=== PATIENT | male | born 1985 | race Hispanic/Latino ===

== ENCOUNTER 2024-04-01 08:05 | Emergency (ER) | payer SELFPAY ==
--- OUTSIDE RECORDS SUMMARY | 2024-04-01 08:09 | XMS REPORT | Continuity of Care Document ---
Author Name Unknown Address [address] [facility] [address] [place] [address] [facility] Address [address] [facility]. [address] [place] [address] Care Team Providers Care Sterilization Technician Name Role Phone PCP, PATIENT DOES NOT HAVE A Primary Care Physic manisha Unavailable Anthony Chauhan Attending Clinician UnaKervin Oropeza Attending Clinician Unavailable Ayush Chauhan Attending Clinician Unavailable KARI MICHELLE Attending Clinician Unavailable Kari Michelle MD Attending Clinician [phone] Doctor Unassigned, [place] Attending Clinician U navailable Sara RODRIGUEZ Attending Clinician Unavailable Sara Park Attending Clinician [phone] Soy Donnelly Attending Clinician Unavailable Dipesh Durán Attending Clinician UnavailSerina Melara Attending Clinician Unavailable Physician, No Primary or Family Admitting Clinic manisha Unavailable KARI MICHELLE Admitting Clinician Unavailable Payers Payer Name Policy Type Policy Number Effective Date Expirati on Date Source COMMERCIAL NON-CONTRACT GENERIC [id number] 2022 00:00:00 Problems Condition Name Condition Details Condition Category Status Onset Date Resolution Date Last Treatment Date Treating Clinician Comments Source No known active problems No known active problems Disease [facility] Allergies, Adverse Reactions, Alerts Allergy Name Allergy Type Status Severity Reaction(s) Onset Date Inactive Date Treating Clinician Comments Source No Known Allergie s DA Active U 09-21 00:00: 00 [facility] No Known Allergie s DA Active U 8-29 00:00: 00 [facility] No Known Allergie s DA Active U 3- 00:00: 00 [facility] No Known Allergie s DA Active U 3 00:00: 00 [facility] No Known Allergie s DA Active U 2-04 00:00: 00 [facility] NO KNOWN ALLERGIE S Drug Class Active [facility] Social History Social Habit Start Date Stop Date Quantity Comments Source Exposure to SARS-CoV-2 (event) 2022-09-10 00:00:00 2022-09-20 20:36:00 Not sure [facility] Sex Assigned At 1985 00:00:00 1985 00:00:00 [facility] Smoking Status Start Date Stop Date Source Tobacco smoking consumption unknown [facility] Medications Ordered Medication Name Filled Medication Name Start Date Stop Date Current Medication? Ordering Clinician Indication Dosage Frequency Signature (SIG) Comments Components Source benzonatate 200 mg capsule 09-20 00:00: 00 Yes [id number] 200mg Take 1 capsule by mouth 3 (three) times daily as needed for Cough. [facility] ibuprofen 800 mg tablet 09-20 00:00: 00 Yes [id number] 800mg Take 1 tablet by mouth every 8 (eight) hours as needed for Pain (scale 4-6) or Temp > 38.5 C. [facility] albuterol 90 mcg/actuati on inhaler 2021-06 00:00: 00 Yes [id number] 2{puff} Inhale 2 Puffs every 4 (four) hours as needed for Wheezing or Shortness of Breath. [facility] naproxen (NAPROSYN) 500 mg tablet 2021-06 00:00: 00 Yes [id number] 500mg Take 1 tablet by mouth in the morning and 1 tablet in the evening. Take with meals. [facility] ondansetron 4 mg disintegrat ing tablet 2021-06 00:00: 00 Yes [id number] 4mg Take 1 tablet by mouth every 8 (eight) hours as needed for Nausea and Vomiting (N/V). [facility] benzonatate 200 mg capsule 2021-06 00:00: 00 Yes [id number] 200mg Take 1 capsule by mouth 3 (three) times daily as needed for Cough for up to 20 doses. [facility] Vital Signs Vital Name Observation Time Observation Value Comments S rhiannon Systolic blood pressure 2022-09-21 03:00:00 126 mm[Hg] [facility] Diastolic blood pressure 2022-09-21 03:00:00 85 mm[Hg] [facility] Heart rate 2022-09-21 03:00:00 70 /min [facility] Respiratory rate 2022-09-21 03:00:00 15 /min [facility] Oxygen saturation in Arterial blood by Pulse oximetry 2022-09-21 03:00:00 97 /min [facility] Body temperature 2022-09-21 01:35:00 37.22 [facility] Body height 2022-09-21 01:35:00 170.2 cm [facility] Body weight 2022-09-21 01:35:00 90.719 kg [facility] BMI 2022-09-21 01:35:00 31.32 kg/m2 [facility] Systolic blood pressure 2022-05-09 18:33:00 140 mm[Hg] [facility] Diastolic blood pressure 2022-05-09 18:33:00 99 mm[Hg] [facility] Heart rate 2022-05-09 18:33:00 70 /min [facility] Body temperature 2022-05-09 18:33:00 37 [facility] Respiratory rate 2022-05-09 18:33:00 16 /min [facility] Body height 2022-05-09 18:33:00 170.2 cm [facility] Body weight 2022-05-09 18:33:00 99.791 kg [facility] BMI 2022-05-09 18:33:00 34.46 kg/m2 [facility] Oxygen saturation in Arterial blood by Pulse oximetry 2022-05-09 18:33:00 100 /min [place] [facility] Procedures Procedure Date / Time Performed Performing Clinicia n Source EKG-12 LEAD 2022-09-21 03:13:33 Kari Michelle [facility] D-DIMER 2022-09-21 02:04:00 Kari Michelle [facility] COVID-19 (ID NOW RAPID TESTING) 2022-09-21 02:04:00 Kari Michelle [facility] LIPASE 2022-09-21 01:50:00 Kari Michelle [facility] TROPONIN I 2022-09-21 01:50:00 Kari Michelle [facility] COMP. METABOLIC PANEL (01525) 2022-09-21 01:50:00 Kari Michelle [facility] CBC WITH DIFF 2022-09-21 01:50:00 Kari Michelle [facility] CONSENT/REFUSAL FOR DIAGNOSIS AND TREATMENT 2022-09-21 01:25:35 Doctor Unassigned, [place] [facility] RAPID INFLUENZA A/B 2022-05-09 19:31:00 Sara Rodriguez [facility] COVID-19 (ID NOW RAPID TESTING) 2022-05-09 19:31:00 Sara Rodriguez [facility] CONSENT/REFUSAL FOR DIAGNOSIS AND TREATMENT 2022-05-09 18:23:53 Doctor Unassigned, [place] [facility] NOTICE OF PRIVACY PRACTICES 2022-05-09 18:22:56 Doctor Unassigned, [place] [facility] Encounters Start Date/Time End Date/Time Encounter Type Admission Type Attending [facility] Care Department Encounter ID Source 2023-10-20 18:53:00 Inpatient [facility] [id number] [facility] 2020-07-15 06:21:42 Inpatient [facility] [id number] [facility] 2020-01-30 09:46:00 Inpatient [facility] [id number] [facility] 2019-08-29 07:45:00 Inpatient [facility] [id number] [facility] 2019-08-21 13:07:00 Inpatient [facility] [id number] [facility] 2023-12-11 12:22:00 2023-12-11 13:44:00 Emergency EM Tien , Anthony [facility] [id number] [facility] 2023-07-30 16:50:00 2023-07-30 18:17:00 Emergency EM Kervin Quinn [facility] [id number] [facility] 2023-05-14 18:20:00 2023-05-14 19:39:00 Emergency EM Tien Ayush [facility] ER [id number] [facility] 2022-10-30 16:14:00 2022-10-30 17:33:00 Emergency EM Kervin Quinn [facility] [id number] [facility] 2022-09-20 20:39:00 2022-09-20 22:22:00 Emergency X KARI MICHELLE [facility] ERT [id number] [facility] 2022-09-20 20:39:00 2022-09-20 22:22:00 Emergency Kari Michelle [facility] [id number] [facility] 2022-09-20 00:00:00 2022-09-20 00:00:00 Orders Only Doctor Unassigned, [place] [facility] [id number] [facility] 2022-05-09 12:34:00 2022-05-09 14:28:00 Emergency X JENNIFER Sara [facility] ERT [id number] [facility] 2022-05-09 12:34:00 2022-05-09 14:28:00 Emergency Sara Rodriguez Aura [facility] [id number] [facility] 2021-09-21 00:03:00 2021-09-21 02:32:00 Emergency EM Andrzej Soy [facility] [id number] [facility] 2021-01-16 03:38:00 2021-01-16 04:12:00 Emergency EM Dipesh Durán [facility] [id number] [facility] 2021-01-01 21:23:00 2021-01-01 22:00:00 Emergency EM RosendoSerina [facility] [id number] [facility] Results Test Description Test Time Test Comments Results Result Co mments Source [facility] [facility], [address], [place], [address], POC,COVID [id number] 13:16:00* Test Item Value Reference Range Interpretation Comme nts POC,COVID AG (test code = GIEHR13NMV) Negative Negative [facility] [facility], [address], [place], [address], POC,STREP GROUP A AG [id number] 13:05:00* Test Item Value Reference Range Interpretation Comme nts POC,STREP GROUP A AG QUAL (t est code = EDSTREP) Negative Negative [facility] [facility], [address], [place], [address], BASIC METABOLIC [id number] 13:04:00* Test Item Value Reference Range Interpretation Comme nts POC,SODIUM (test code = EDNAB) 139 mmol/L 138-146 N POC,POTASSIUM (test code = EDKB) 4.0 mmol/L 3.5-4.5 N POC,CHLORIDE (test code = EDCLB) 105 mmol/L 98-107 N POC,TCO2 (test code = IOAQM9F) 28 mmol/L 23-30 N POC,ANION GAP (test code = EDAGAPB) 6 mmol/L 4-14 N POC,BUN (test code = EDBUNB) 16 mg/dL 8-26 N POC,CREATININE (test code = EDCREB) 0.97 mg/dL 0.51-1.19 N POC,GLUCOSE (test code = EDGLUCB) 94 mg/dL 74-100 N POC,CALICIUM IONIZED (test code = EDCAIB) 1.18 mmol/L 1.15-1.33 N POC,eGFR (test code = EDGFRB) 102 mL/min See_Comment eGFR is not calc ulated if age <18 yrs, if the sex in EHR islisted as unknown or the creatinine level is below assayrange. This result value is determined by the eGFR 2020 CKD-EPIformula using serum creatinine, age and sex, excluding arace coefficient. The assay for creatinine is traceable tothe IDRI reference method. Chronic kidney disease (CKD) maynot be detectable based solely on creatinine levels. A eGFR> 60 does not rule out mild renal disease. To distinguishnormal renal function from mild renal disease, furtherlaboratory testing may be required. [Automated message] The system which generated this result transmitted reference range: >or=60. The reference range was not used to interpret this result as normal/abnormal. [facility] [facility], [address], [place], [address], COMPLETE BLOOD COUNT (CBC)2023-12-11 13:01:00* Test Item Value Reference Range Interpretation Comme nts POC,WHITE BLOOD CELL (test c ode = EDWBCP) 6.1 10 3/uL 3.9-9.4 N POC,RED BLOOD CELL (test cod e = EDRBCP) 5.03 10 6/uL 4.14-5.52 N POC,HEMOGLOBIN (test code = EDHGBP) 17.1 g/dL 11.9-16.7 H POC,HEMATOCRIT (test code = EDHCTP) 46.1 % 36.1-49.4 N POC,MEAN CELL VOLUME (test c ode = EDMCVP) 91.7 fL 83.2-96.0 N POC,MEAN CELL HEMOGLOBIN (te st code = EDMCHP) 34.0 pg 27.1-32.5 H POC,MEAN CELL HGB CONC (test code = EDMCHCP) 37.1 g/dL 31.0-35.8 H POC,PLATELET COUNT (test cod e = EDPLTP) 257 10 3/uL 155-330 N POC,RED CELL DISTRIB WIDTH ( test code = EDRDWP) 12.5 % 12.0-15.0 N POC,LYMPHOCYTES % (test code = EDLYM%P) 23.2 % 16.8-42.5 N POC,MIXED CELLS % (test code = EDMXD%P) 8.1 % 3.2-16.9 N POC,NEUTROPHILS % (test code = EDNEUT%P) 68.7 % 46.4-74.7 N POC,LYMPHOCYTES # (test code = EDLYM#P) 1.4 10 3/uL 0.9-3.0 N POC,MIXED CELLS # (test code = EDMXD#P) 0.5 10 3/uL 0.2-1.1 N POC,NEUTROPHILS # (test code = EDNEUT#P) 4.2 10 3/uL 2.2-6.4 N POC,MEAN PLATELET VOLUME (te st code = EDMPVP) 10.2 fL 8.7-12.6 N [facility], [address], [place], [address], URINALYSIS W REFLEX [id number] 18:01:00* Test Item Value Reference Range Interpretation Comme nts UA COLOR (test code = COLU) LT YELLOW YELLOW UA APPEARANCE (test code = APPU) CLEAR CLEAR UA GLUCOSE DIPSTICK (test co de = DGLUU) NORMAL mg/dl NORMAL UA BILIRUBIN DIPSTICK (test code = BILU) NEGATIVE mg/dl NEGATIVE UA KETONE DIPSTICK (test cod e = KETU) NEGATIVE mg/dl NEGATIVE UA SPECIFIC GRAVITY (test co de = SGU) 1.021 1.001-1.035 N UA BLOOD DIPSTICK (test code = KYLE) NEGATIVE /UL NEGATIVE UA PH DIPSTICK (test code = SKIP) 7.0 4.6-8.0 UA PROTEIN DIPSTICK (test co de = PROU) NEGATIVE mg/dl NEGATIVE UA UROBILINIOGEN DIPSTICK (test code = URO) NORMAL mg/dl NORMAL UA NITRITE DIPSTICK (test co de = PRAKASH) NEGATIVE NEGATIVE UA LEUKOCYTE ESTERASE DIPSTI CK (test code = LEUU) NEGATIVE /UL NEGATIVE UA COMMENT (test code = COMU) CLN CATCH UA WBC (test code = WBCU) 0-2 #/hpf 0-5 UA EPITHELIAL CELLS (test co de = EPIU) FEW /hpf NEG,FEW COMPREHENSIVE METABOLIC [id number] 17:43:00* Test Item Value Reference Range Interpretation Comme nts SODIUM (test code = NA) 140 mmol/L 136-145 N POTASSIUM (test code = K) 3.5 mmol/L 3.5-5.1 N CHLORIDE (test code = CL) 107 mmol/L 98-107 N CARBON DIOXIDE (test code = CO2) 29 mmol/L 21-32 N GLUCOSE (test code = GLU) 111 mg/dL 70-100 H BLOOD UREA NITROGEN (test code = BUN) 11 mg/dL 7-18 N GLOMERULAR FILTRATION RATE (test code = GFR) > 60.00 >=60 The Glomerular Filtration Rate is a calculated parameterbased on serum Creatinine, patient age and sex. GFR valuesless than 60 mL/min/1.73 square meters are indicative ofChronic Kidney Disease. Values less than 15 mL/min/1.73square meters indicate Kidney failure. The calculation forGFR is based on the CKD-EPI (2020) calculation. This formulais race indifferent and is the recommended formula for GFRby the National Kidney Foundation for Adults.The GFR will not calculate if the sex is unknown or if thepatient's age is <18 years. CREATININE (test code = CREAT) 1.15 mg/dL 0.67-1.17 N TOTAL PROTEIN (test code = PROT) 6.5 g/dl 6.4-8.2 N ALBUMIN (test code = ALB) 3.3 g/dl 3.4-5.0 L CALCIUM (test code = CA) 8.4 mg/dL 8.5-10.1 L BILIRUBIN TOTAL (test code = BILT) 1.0 mg/dl 0.2-1.0 N SGOT/AST (test code = AST) 25 U/L 15-37 N SGPT/ALT (test code = ALT) 33 U/L 12-78 N ALKALINE PHOSPHATASE TOTAL (test code = ALKP) 70 U/L 50-136 N [id number] 17:43:00* Test Item Value Reference Range Interpretation Comme nts LIPASE (test code = LIP) 27 U/L 13-75 N TROPI (HIGH SENSITIVITY)2023-07-30 17:43:00* Test Item Value Reference Range Interpretation Comme nts TROPI (HIGH SENSITIVITY) (test code = TROPI) 5 pg/ml <=3.0 N HIGH SENSITIVITY TROPONIN MEASUREMENT/RANGES--------- Ass ay : Units : Normal : Risk Stratification : High : : (Detectable : Limit(Suggestive of : AboveTNIH : : Limit) : sequential testing) : 99th : : : : % ile --------FEMALES: pg/ml : <= 3.0 : 3.1 - 54 : >54 --------MALES : pg/ml : <= 3.0 : 3.1 - 78 : >78 --------- CBC W/AUTO [id number] 17:25:00* Test Item Value Reference Range Interpretation Comme nts WHITE BLOOD CELL (test code = WBC) 6.7 X10(3) 4.5-11.0 N RED BLOOD CELL (test code = RBC) 4.89 X10(6) 4.3-5.9 N HEMOGLOBIN (test code = HGB) 16.1 g/dL 13.5-18.0 N HEMATOCRIT (test code = HCT) 45.3 % 42.0-52.0 N MEAN CELL VOLUME (test code = MCV) 92.6 fl 78-100 N MEAN CELL HGB (test code = MCH) 32.9 pg 26.0-34.0 N MEAN CELL HGB CONCETRATION (test code = MCHC) 35.5 g/dl 30.0-37.0 N RED CELL DISTRIBUTION WIDTH (test code = RDW) 11.8 % 11.5-14.5 N PLATELET COUNT (test code = PLT) 252 X10(3) 150-400 N MEAN PLATELET VOLUME (test c ode = MPV) 9.6 fl 8.7-11.4 N NEUTROPHIL % (test code = NT%) 66.5 % 36.0-66.0 H IMMATURE GRANULOCYTE % (test code = IG%) 0.4 % 0.0-2.0 N LYMPHOCYTE % (test code = LY%) 23.2 % 16.0-50.0 N MONOCYTE % (test code = MO%) 7.0 % 0.0-13.0 N EOSINOPHIL % (test code = EO%) 2.2 % 0.0-4.5 N BASOPHIL % (test code = BA%) 0.7 % 0.0-1.5 N NUCLEATED RBC % (test code = NRBC%) 0.0 % 0-0.2 N NEUTROPHIL # (test code = NT#) 4.46 X10(3) 1.70-7.70 N IMMATURE GRANULOCYTE # (test code = IG#) 0.03 X10(3)uL 0.00-0.03 N LYMPHOCYTE # (test code = LY#) 1.56 X10(3) 0.70-4.00 N MONOCYTE # (test code = MO#) 0.47 X10(3) 0.00-0.89 N EOSINOPHIL # (test code = EO#) 0.15 X10(3) 0.00-0.60 N BASOPHIL # (test code = BA#) 0.05 X10(3) 0.00-0.20 N NUCLEATED RBC # (test code = NRBC#) 0.00 K/mm3 0.0-0.1 N RBC MORPHOLOGY REQUIRED (lulu t code = RBCM) NO NORMAL - XR SHOULDER 2+V [id number] 19:02:00 [facility] : 1985 Sex: M [facility] Center Name: JADE GOODWIN [address] Phys: Ayush Chauhan Jr, MD [place] [address] : 1985 Age: 37 Sex: M Acct: [id number] Loc: [place] PHONE #: [phone] Exam Date: 05/14/2023 Status: PRE ER FAX #: [phone] Radiology No: Unit No: [id number] Reason: trauma EXAMS: CPT CODE: [id number] XR SHOULDER 2+[place] [address] Fluoro Time: DAP (Gy m2): Air Kerma (mGy): Site ID: [id number] HISTORY: Right shoulder dislocation IMPRESSION: No acute fracture or dislocation. Curvilinear avulsion fracture of the inferior glenoid margin and flattening of the superolateral humeral head appear chronic. at 1902 Reported and signed by: PITA GRANT M.D. CC: Ayush Chauhan Jr, MD; Krystal MORRIS Technologist: Jj Sosa, RT (R) Transcribed Date/Time: 05/14/2023 (1901) [id number] Orig Print D/T: S: 05/14/2023 (1904) PAGE 1 Signed Report- XR CHEST 2 [id number] 17:08:00 [facility] : 1985 Sex: M FAX: Kervin Quinn MD [place]: St: [facility] 1985 Age/S: 36/M [address] Unit #: [id number] Loc: [place] [address] Phys: Kervin Quinn MD Acct: [id number] Dis Date: Status: PRE ER PHONE #: Exam Date: 10/30/2022 2584 FAX #: Reason: cough, wheezing EXAMS: CPT CODE: [id number] XR CHEST 2 V [id number] EXAM: - XR CHEST 2 V INDICATION: cough, wheezing Technique: Frontal and lateral views. Location: T18 FINDINGS: Lungs appear clear. No pleural effusion seen. Cardiomediastinal silhouette appears unremarkable. Osseous structures appear unremarkable. IMPRESSION: No acute cardiopulmonary process seen. at 1708 Reported and signed by: Scottie Du MD CC: Kervin Quinn MD Technologist: Oleg WagnerFatoumata (R) CT (R) Trnscrd Date/Time/By: 10/30/2022 (1708) : By: [email or web address] Orig Print D/T: S: 10/30/2022 (7819) PAGE 1 Signed ReportCOVID 19 INHOUSE [id number] 16:50:00* Test Item Value Reference Range Interpretation Comme nts COVID 19 INHOUSE AG (test code = [id number]) Presumed Negative NEGATIVE KARLA COVID-19 Results are for the identification of DPSF-QbN-7uqjczmticxmh protein antigen. Antigen is generallydetectable in upper respiratory specimens during the acutephase of infection. Positive results indicate the presenceof viral antigens, but clinical correlation with patienthistory and other diagnostic information is necessary todetermine infection status. Negative results should be treated as presumptive andconfirmed with a molecular assay, if necessary for patientmanagement. Negative results do not rule out COVID-19 andshould not be used as the sole basis for treatment orpatient management decisions, including infection controldecisions. Negative results should be considered in thecontext of a patient's recent exposures, history and thepresence of clinical signs and symptoms consistent withCOVID-19. The Karla SARS Antigen GOPI is only for use under the Foodand Drug Administration's Emergency Use Authorization. - XR CHEST 1 [id number] 16:42:00 [facility] : 1985 Sex: M FAX: Kervin Quinn MD [place]: St: PRE Name: JADE GOODWIN [facility] : 1985 Age/S: 36/M [address] Unit #: [id number] Loc: [place] [address] Phys: Kervin Quinn MD Acct: [id number] Dis Date: Status: PRE ER PHONE #: Exam Date: 10/30/2022 1636 FAX #: Reason: COUGH, SOB EXAMS: CPT CODE: [id number] XR CHEST 1 V 16685 EXAM: - XR CHEST 1 V HISTORY: COUGH, SOB LOCATION CODE:H97 TECHNIQUE: Frontal radiograph of the chest. COMPARISON: 09/21/2021. FINDINGS: Normal heart size. Nofocal airspace consolidation. No pulmonary edema, pleural effusion or pneumothorax. IMPRESSION: Noradiographic evidence of acute cardiopulmonary disease. at 1642 Reported and signed by: Lane Fitzgerald MD CC: Kervin Quinn MD Technologist: Oleg Aguilar RT (R) CT (R) Trnscrd Date/Time/By: 10/30/2022 (291) : By: [email or web address] Orig Print D/T: S: 10/30/2022 (9314) PAGE 1 Signed [id number] 02:44:17* Test Item Value Reference Range Interpretation Comments D-DIMER (test code = 4169755798) 0.36 See_Comment [Automated message] The system which generated this result transmitted reference range: <0.41 ?g/mL (FEU). The reference range was not used to interpret this result as normal/abnormal. SELENA (test code = SELENA) This test may be used in conjunction with a clinical pretest probability (PTP) assessment model to exclude venous thromboembolism (VTE) in patients suspected of deep venous thrombosis (DVT) and pulmonary embolism (PE) A D-Dimer value less than 0.50 ?g/ml (FEU) has a negative predicative value of 96 to 100% (95% CI)and 97 to 100% (95% CI) as an aid in the diagnosis of deep vein thrombosis (DVT) and pulmonary embolism when there is low or moderate pretest probability of PE or DVT. D-Dimer values are expressed in initial fibrinogen equivalent units (FEU)" The assay results should be used with other information, including the clinical context, in forming a diagnosis. Lab Interpretation (test code = 87380-9) [id number] 02:42:16* Test Item Value Reference Range Interpretation Comme nts TROPONIN I (test code = 1115635208) 0.003 ng/mL <=0.034 SELENA (test code = SELENA) Reference (Normal) Range (defined by the 99th percentile reference limit): <= 0.034 ng/mL Note: Cardiac troponin begins to rise 3-4 hours after the onset of ischemia. Repeat in 4-6 hours if the sample was drawn within 3-4 hours of the onset of the symptom and found normal. Diagnosis of myocardial injury is made with acute changes in cTn concentrations with at least one serial sample above the 99th percentile upper reference limit (URL), taken together with the patient's clinical presentation. Biotin has been reported to cause a negative bias, interpret results relative to patient's use of biotin. Lab Interpretation (test code = 78886-7) Normal [facility]OL[facility] (52571)2022-09-21 02:30:55* Test Item Value Reference Range Interpretation Comme nts NA (test code = 8441204221) 140 mmol/L 135-145 K (test code = 8457198019) 3.9 mmol/L 3.5-5.0 CL (test code = 0369297696) 103 mmol/L 98-108 CO2 TOTAL (test code = 9265879499) 27 mmol/L 23-31 AGAP (test code = 4668862767) 10 2-16 BUN (test code = 6809342336) 18 mg/dL 7-23 GLUCOSE (test code = 4547309814) 104 mg/dL 70-110 CREATININE (test code = 7759273088) 1.10 mg/dL 0.60-1.25 TOTAL BILI (test code = 3989798193) 1.4 mg/dL 0.1-1.1 H CALCIUM (test code = 7087967969) 8.9 mg/dL 8.6-10.6 T PROTEIN (test code = 8507305550) 6.7 g/dL 6.3-8.2 ALBUMIN (test code = 1957773266) 4.1 g/dL 3.5-5.0 ALK PHOS (test code = 7215058307) 67 U/L 34-122 ALTv (test code = 1742-6) 25 U/L 5-50 AST(SGOT) (test code = 0848780486) 30 U/L 13-40 eGFR (test code = 0228658932) 74.9 mL/min/1.73m2 SELENA (test code = SELENA) Association of Glomerular Filtration Rate (GFR) and Staging of Kidney Disease* + --+ --+ ------+| GFR (mL/min/1.73 m2) ?| With Kidney Damage ?| ?Without Kidney Damage+ --------+ --------+ +| ?>90 ?| ?Stage one ?| ? Normal ?+ ---+ ---+ -------+| ?60-89 ?| ?Stage two ?| ? Decreased GFR ? + --+ --+ ------+| ?30-59 ?| ?Stage three ?| ? Stage three ? + --+ --+ ------+| ?15-29 ?| ?Stage four ? | ? Stage four ?+ ---+ ---+ -------+| ?<15 (or dialysis) ? ?| ?Stage five ? | ? Stage five ?+ ---+ ---+ -------+ *Each stage assumes the associated GFR level has been in effect for at least three months. ?Stages 1 to 5, with or without kidney disease, indicate chronic kidney disease. Notes: Determination of stages one and two (with eGFR >59mL/min/1.73 m2) requires estimation of kidney damage for at least three months as defined by structural or functional abnormalities of the kidney, manifested by either:Pathological abnormalities or Markers of kidney damage (including abnormalities in the composition of the blood or urine or abnormalities in imaging tests). Lab Interpretation (test code = 31383-5) [facility] [id number] 02:30:39* Test Item Value Reference Range Interpretation Comme nts LIPASE (test code = 7991242595) 68 U/L 0-220 Lab Interpretation (test cod e = 05396-1) Normal [facility] WITH [id number] 02:14:36* Test Item Value Reference Range Interpretation Comme nts WBC (test code = 6690-2) 6.95 See_Comment [Automated Anonymess] The system which generated this result transmitted reference range: 4.20 - 10.70 10*3/?L. The reference range was not used to interpret this result as normal/abnormal. RBC (test code = 789-8) 4.53 See_Comment [Automated Anonymess] The system which generated this result transmitted reference range: 4.26 - 5.52 10*6/?L. The reference range was not used to interpret this result as normal/abnormal. HGB (test code = 718-7) 15.1 g/dL 12.2-16.4 HCT (test code = 4544-3) 42.1 % 38.4-49.3 MCV (test code = 787-2) 92.9 fL 81.7-95.6 MCH (test code = 785-6) 33.3 pg 26.1-32.7 H MCHC (test code = 786-4) 35.9 g/dL 31.2-35.0 H RDW-SD (test code = 34054-0) 40.7 fL 38.5-51.6 RDW-CV (test code = 788-0) 11.9 % 12.1-15.4 L PLT (test code = 777-3) 248 See_Comment [Automated messa ge] The system which generated this result transmitted reference range: 150 - 328 10*3/?L. The reference range was not used to interpret this result as normal/abnormal. MPV (test code = 96618-9) 10.1 fL 9.8-13.0 NRBC/100 WBC (test code = 2230295571) 0.0 See_Comment [Automated Set.fm ssage] The system which generated this result transmitted reference range: 0.0 - 10.0 /100 WBCs. The reference range was not used to interpret this result as normal/abnormal. NRBC x10^3 (test code = 0762917815) See_Comment [Automated messa ge] The system which generated this result transmitted reference range: 10*3/?L. The reference range was not used to interpret this result as normal/abnormal. GRAN MAT (NEUT) % (test code = 770-8) 55.7 % IMM GRAN % (test code = 0098454000) 0.30 % LYMPH % (test code = 736-9) 28.3 % MONO % (test code = 5905-5) 8.1 % EOS % (test code = 713-8) 6.9 % BASO % (test code = 706-2) 0.7 % GRAN MAT x10^3(ANC) (test code = 7476536922) 3.87 10*3/uL 1.99-6.95 IMM GRAN x10^3 (test code = 2029037447) 0.00-0.06 LYMPH x10^3 (test code = 731-0) 1.97 10*3/uL 1.09-3.23 MONO x10^3 (test code = 742-7) 0.56 10*3/uL 0.36-1.02 EOS x10^3 (test code = 711-2) 0.48 10*3/uL 0.06-0.53 BASO x10^3 (test code = 704-7) 0.05 10*3/uL 0.01-0.09 Lab Interpretation (test code = 73752-3) [facility]normal [facility] [id number] 01:59:00* Test Item Value Reference Range Interpretation Comme nts UA COLOR (test code = COLU) DK YELLOW YELLOW UA APPEARANCE (test code = APPU) CLEAR CLEAR UA GLUCOSE DIPSTICK (test co de = DGLUU) NEGATIVE mg/dl NORMAL UA BILIRUBIN DIPSTICK (test code = BILU) NEGATIVE mg/dl NEGATIVE UA KETONE DIPSTICK (test cod e = KETU) NEGATIVE mg/dl NEGATIVE UA SPECIFIC GRAVITY (test co de = SGU) >= 1.030 1.001-1.035 N UA BLOOD DIPSTICK (test code = KYLE) NEGATIVE /UL NEGATIVE UA PH DIPSTICK (test code = SKIP) 5.5 4.6-8.0 UA PROTEIN DIPSTICK (test co de = PROU) NEGATIVE mg/dl NEGATIVE UA UROBILINIOGEN DIPSTICK (test code = URO) 0.2 mg/dl NORMAL UA NITRITE DIPSTICK (test co de = PRAKASH) NEGATIVE NEGATIVE UA LEUKOCYTE ESTERASE DIPSTI CK (test code = LEUU) NEGATIVE /UL NEGATIVE UA COMMENT (test code = COMU) CLN CATCH UA MICROSCOPIC NEEDED? (test code = UAMICRO) N= NO UA MICRO PROTHROMBIN [id number] 01:15:00* Test Item Value Reference Range Interpretation Comments PROTHROMBIN TIME PATIENT (test code = PTP) 9.4 SECONDS 8.7-11.9 N THERAPEUTIC LEVE L: 1.5 TO 1.9 TIMES NORMAL RANGE INTERNATIONAL NORMAL RATIO (test code = INR) 0.9 Recommended Ther apeutic PT Ratios For Oral AnticoagulantTherapy. CONDITION INT'L NORMALIZED PT RATIO Prophylaxis of venous thrombosis 2.0 - 3.0in high risk medical or surgicalpatients, treatment of venousthrombosis, prevention of embolism. Prevention of recurrent embolism, 2.5 - 3.5or treatment of patients with mechanicalprosthetic heart valves. THROMBOPLASTIN TIME [id number] 01:15:00* Test Item Value Reference Range Interpretation Comme [facility] THROMBOPLASTIN TIME PARTIAL (test code = PTT) 19.7 seconds 22.8-34.4 L COVID 19 INHOUSE [id number] 01:04:00* Test Item Value Reference Range Interpretation Comme nts COVID 19 INHOUSE AG (test code = [id number]) Presumed Negative NEGATIVE KARLA COVID-19 Results are for the identification of RIHU-CwN-1oowwvpevkpok protein antigen. Antigen is generallydetectable in upper respiratory specimens during the acutephase of infection. Positive results indicate the presenceof viral antigens, but clinical correlation with patienthistory and other diagnostic information is necessary todetermine infection status. Negative results should be treated as presumptive andconfirmed with a molecular assay, if necessary for patientmanagement. Negative results do not rule out COVID-19 andshould not be used as the sole basis for treatment orpatient management decisions, including infection controldecisions. Negative results should be considered in thecontext of a patient's recent exposures, history and thepresence of clinical signs and symptoms consistent withCOVID-19. The Karla SARS Antigen GOPI is only for use under the Foodand Drug Administration's Emergency Use Authorization. COMPREHENSIVE METABOLIC [id number] 00:42:00* Test Item Value Reference Range Interpretation Comme nts SODIUM (test code = NA) 139 mmol/L 136-145 N POTASSIUM (test code = K) 3.7 mmol/L 3.5-5.1 N CHLORIDE (test code = CL) 101 mmol/L 98-107 N CARBON DIOXIDE (test code = CO2) 29 mmol/L 21-32 N GLUCOSE (test code = GLU) 137 mg/dL 70-100 H BLOOD UREA NITROGEN (test code = BUN) 17 mg/dL 7-18 N GLOMERULAR FILTRATION RATE (test code = GFR) 59.98 See_Comment L Reporting units: mL/min/1.73m\\S\\2 (Modified MDRD formula)REFERENCE RANGE: > or = 60 ml/min/1.73M2IF PATIENT IS -NEPALESE, MULTIPLY REPORTED RESULT BY1.21. [Automated message] The system which generated this result transmitted reference range: >=60. The reference range was not used to interpret this result as normal/abnormal. CREATININE (test code = CREAT) 1.34 mg/dl 0.70-1.30 H TOTAL PROTEIN (test code = PROT) 7.5 g/dl 6.4-8.2 N ALBUMIN (test code = ALB) 4.1 g/dl 3.4-5.0 N CALCIUM (test code = CA) 8.6 mg/dL 8.5-10.1 N BILIRUBIN TOTAL (test code = BILT) 1.2 mg/dL 0.2-1.0 H SGOT/AST (test code = AST) 25 U/L 15-37 N SGPT/ALT (test code = ALT) 43 U/L 12-78 N ALKALINE PHOSPHATASE TOTAL (test code = ALKP) 75 U/L 45-117 N CBC W/AUTO [id number] 00:31:00* Test Item Value Reference Range Interpretation Comme nts WHITE BLOOD CELL (test code = WBC) 19.5 X10(3) 4.5-11.0 H RED BLOOD CELL (test code = RBC) 5.23 X10(6) 4.3-5.9 N HEMOGLOBIN (test code = HGB) 17.3 g/dL 13.5-18.0 N HEMATOCRIT (test code = HCT) 49.6 % 42.0-52.0 N MEAN CELL VOLUME (test code = MCV) 94.8 fL 78-100 N MEAN CELL HGB (test code = MCH) 33.1 pg 26.0-34.0 N MEAN CELL HGB CONCETRATION (test code = MCHC) 34.9 g/dl 30.0-37.0 N RED CELL DISTRIBUTION WIDTH (test code = RDW) 11.8 % 11.5-14.5 N PLATELET COUNT (test code = PLT) 241 X10(3) 150-350 N MEAN PLATELET VOLUME (test c ode = MPV) 9.6 fl 8.7-11.4 N NEUTROPHIL % (test code = NT%) 90.9 % 36.0-66.0 H IMMATURE GRANULOCYTE % (test code = IG%) 0.2 % 0.0-2.0 N LYMPHOCYTE % (test code = LY%) 3.2 % 16-50 L MONOCYTE % (test code = MO%) 4.7 % 0.0-13.0 N EOSINOPHIL % (test code = EO%) 0.8 % 0.0-4.5 N BASOPHIL % (test code = BA%) 0.2 % 0.0-1.5 N NEUTROPHIL # (test code = NT#) 17.7 X10(3) 1.7-7.7 H IMMATURE GRANULOCYTE # (test code = IG#) 0.03 X10(3)uL 0.00-0.03 N LYMPHOCYTE # (test code = LY#) 0.6 X10(3) 1.0-4.8 L MONOCYTE # (test code = MO#) 0.9 X10(3) 0.0-0.89 H EOSINOPHIL # (test code = EO#) 0.2 X10(3) 0.0-0.6 N BASOPHIL # (test code = BA#) 0.0 X10(3) 0.0-0.2 N RBC MORPHOLOGY REQUIRED (lulu t code = RBCM) NO NORMAL - XR CHEST 1 [id number] 00:29:00 [facility] 1985 Sex: M [place]: [address]: PRE --Name: JADE GOODWINILIO Jordi Lino FSED : 1985 Age/S: 35/M [address] Unit #: [id number] Loc: [place] [address] Phys: Soy Donnelly MD Acct: [id number] Dis Date: Status:PRE ER PHONE #: Exam Date: 09/21/2021 0028 FAX #: Reason: sepsis EXAMS: CPT CODE: [id number] XR CHEST 1 V 38459 CHEST X-RAY 1 VIEW Dictation Location: N13 CLINICAL HISTORY: Sepsis Technique: A singlefrontal view of the chest was obtained. Comparison made to prior study August 29, 2019 FINDINGS: Bony structures are unremarkable. The aortic, hilar and cardiac outlines are normal. The lungs are clear of infiltrates or suspicious nodules. No pleural effusion or pneumothorax. IMPRESSION: Normal chest x-ray. at 0029 Reported and signed by: SYMONE ESCUDERO M.D. CC: Technologist: Andrzej Nice CT (R) Trnscrd Date/Time/By: 09/21/2021 (002) : By: Frank Orig Print D/T: S: 09/21/2021 (003) PAGE 1 Signed ReportLACTIC [id number] 00:26:00* Test Item Value Reference Range Interpretation Comme nts LACTIC ACID (test code = LACT) 1.8 mmol/l 0.4-2.0 N - XR L-SPINE 2/3 [id number] 11:24:00[facility] Name: JADE GOODWIN [address] Phys: Tu Soto MD [place] [address] : 1985 Age: 34 Sex: M Acct: [id number] Loc: [place] PHONE #: [phone] Exam Date: 01/30/2020 Status: DEP ER FAX #: [phone] Radiology No: Unit No: [id number] Reason: TRAUMA LOW BACK PAIN EXAMS: CPT CODE: [id number] XR L-SPINE 2/3 VIEWS 90075 Fluoro Time: DAP (Gy m2): Air Kerma (mGy): CLINICAL HISTORY: Low back pain, trauma. Lumbar spine, 3 views.. Good alignment is seen with no evidence of fracture or acute disc space abnormality. The T11-12 and T12-L1 levels show degenerative changes. Slight narrowing of the anterior aspects of the vertebral bodies seen at this level likely old trauma. No acute findings. Degenerative spondylosis changes mainly L5-S1 butthe disc space appears to be fairly well-maintained. Frontal view without any scoliosis. Mineralization pattern is intact. IMPRESSION: Good alignment in the lumbar spine. No acute abnormality. Old traumatic changes suspected at the thoracic and lumbar junction. Other scattered degenerative changeswith spondylosis at L5-S1. Location: U19 Electronically Signed by PATRICK FITZGERALD M.D. on 0 01/30/2020 at 1124 Reported and signed by: PATRICK FITZGERALD M.D. CC: Tu Soto MD Technologist: Erin Mckeon RT (R) Transcribed Date/Time: 01/30/2020 (1124) [email or web address] Orig Print D/T: S: 01/30/2020 (0875) PAGE 1 Signed Report- XR CHEST 1 [id number] 08:56:00[facility] Name: JADE GOODIWN [address] [place] [address] Phys: Paco Aceves MD [place] [address] : 1985 Age: 33 Sex: M Acct: [id number] Loc: [place] PHONE #: [phone] Exam Date: 08/29/2019 Status: REG ER FAX #: [phone] Radiology No: Unit No: [id number] Reason: pain EXAMS: CPT CODE: [id number] XR CHEST 1 V 70476 Fluoro Time: DAP (Gy m2): Air Kerma(mGy): - XR ABDOMEN 2V, - XR CHEST 1 V INDICATION: Pain. Weakness. Diarrhea. Comparison: Correlation made with CT imaging dated August 29, 2018 Findings: Chest: Lungs are uniformly expanded. There is no pneumothorax. There is no pleural effusion or infiltrate . Heart size and central vessels appear normal. Bony structures unremarkable. Abdomen: Bowel gas pattern is nonspecific, nonobstructive. No definite free air or air- fluid levels. Bony structures are unremarkable. IMPRESSION: No evidence of acute cardiopulmonary abnormality. No evidence of intestinal obstruction. Nonspecific bowel gas pattern. at 0856 Reported and signed by: Sandra Parker MD CC: Technologist: Erin Mckeon RT (R) Transcribed Date/Time: 08/29/2019 (0856) [email or web address] Orig Print D/T: S: 08/29/2019 (0812) PAGE 1 Signed Report- XR ABDOMEN [id number] 08:56:00 [facility] Name: JADE GOODWIN [address] [place] [address] Phys: Paco Aceves MD [place], [place] [address] : 1985 Age: 33 Sex: M Acct: [id number] Loc: [place] PHONE #: [phone] Exam Date: 08/29/2019 Status: REG ER FAX #: [phone] Radiology No: Unit No: [id number] Reason: pain EXAMS: CPT CODE: [id number] XR ABDOMEN 2V 10120 Fluoro Time: DAP (Gy m2): Air Kerma(mGy): - XR ABDOMEN 2V, - XR CHEST 1 V INDICATION: Pain. Weakness. Diarrhea. Comparison: Correlation made with CT imaging dated August 29, 2018 Findings: Chest: Lungs are uniformly expanded. There is no pneumothorax. There is no pleural effusion or infiltrate . Heart size and central vessels appear n ormal. Bony structures unremarkable. Abdomen: Bowel gas pattern is nonspecific, nonobstructive. No definite free air or air-fluid levels. Bony structures are unremarkable. IMPRESSION: No evidence of acute cardiopulmonary abnormality. No evidence of intestinal obstruction. Nonspecific bowel gas pattern. at 0856 Reported and signed by:Sandra Parker MD CC: Technologist: Erin Mckeon, RT (R) Transcribed Date/Time: 08/29/2019 (0856)[email or web address] Orig Print D/T: S: 08/29/2019 (0891) PAGE 1 Signed ReportCBC W/AUTO [id number] 08:37:00* Test Item Value Reference Range Interpretation Comme nts WHITE BLOOD CELL (test code = WBC) 4.9 X10(3) 4.5-11.0 N RED BLOOD CELL (test code = RBC) 4.95 X10(6) 4.3-5.9 N HEMOGLOBIN (test code = HGB) 16.8 g/dL 13.5-18.0 N HEMATOCRIT (test code = HCT) 47.7 % 42.0-52.0 N MEAN CELL VOLUME (test code = MCV) 96.4 fl 78-100 N MEAN CELL HGB (test code = MCH) 33.9 pg 26.0-34.0 N MEAN CELL HGB CONCETRATION (test code = MCHC) 35.2 g/dl 30.0-37.0 N RED CELL DISTRIBUTION WIDTH (test code = RDW) 12.4 % 11.5-14.5 N PLATELET COUNT (test code = PLT) 272 X10(3) 150-350 N MEAN PLATELET VOLUME (test c ode = MPV) 9.5 fl 8.7-11.4 N NEUTROPHIL % (test code = NT%) 60.3 % 36.0-66.0 N IMMATURE GRANULOCYTE % (test code = IG%) 0.2 % 0.0-2.0 N LYMPHOCYTE % (test code = LY%) 27.5 % 16.0-50.0 N MONOCYTE % (test code = MO%) 10.2 % 0.0-13.0 N EOSINOPHIL % (test code = EO%) 1.2 % 0.0-4.5 N BASOPHIL % (test code = BA%) 0.6 % 0.0-1.5 N NUCLEATED RBC % (test code = NRBC%) 0.0 % 0-0.2 N NEUTROPHIL # (test code = NT#) 2.94 X10(3) 1.70-7.70 N IMMATURE GRANULOCYTE # (test code = IG#) 0.01 X10(3)uL 0.00-0.03 N LYMPHOCYTE # (test code = LY#) 1.34 X10(3) 0.70-4.00 N MONOCYTE # (test code = MO#) 0.50 X10(3) 0.00-0.89 N EOSINOPHIL # (test code = EO#) 0.06 X10(3) 0.00-0.60 N BASOPHIL # (test code = BA#) 0.03 X10(3) 0.00-0.20 N NUCLEATED RBC # (test code = NRBC#) 0.00 K/mm3 0.0-0.1 N BASIC METABOLIC [id number] 08:36:00* Test Item Value Reference Range Interpretation Comme nts SODIUM (test code = NA) 141 mmol/L 136-145 N POTASSIUM (test code = K) 3.7 mmol/L 3.5-5.1 N CHLORIDE (test code = CL) 108 mmol/L 98-107 H CARBON DIOXIDE (test code = CO2) 25 mmol/L 21-32 N GLUCOSE (test code = GLU) 115 mg/dL 70-100 H BLOOD UREA NITROGEN (test code = BUN) 20 mg/dL 7-18 H GLOMERULAR FILTRATION RATE (test code = GFR) > 60.00 >=60 Reporting units: mL/min/1.73m\\S\\2 (Modified MDRD formula)REFERENCE RANGE: > or = 60 ml/min/1.73M2IF PATIENT IS -NEPALESE, MULTIPLY REPORTED RESULT BY1.21. CREATININE (test code = CREAT) 1.10 mg/dL 0.67-1.17 N CALCIUM (test code = CA) 9.2 mg/dL 8.5-10.1 N LIVER [id number] 08:36:00* Test Item Value Reference Range Interpretation Comme nts TOTAL PROTEIN (test code = PROT) 7.3 g/dl 6.4-8.2 N ALBUMIN (test code = ALB) 3.8 g/dl 3.4-5.0 N BILIRUBIN TOTAL (test code = BILT) 2.0 mg/dl 0.2-1.0 H BILIRUBIN DIRECT (test code = BILD) 0.31 mg/dl 0.0-0.4 N SGOT/AST (test code = AST) 28 U/L 15-37 N SGPT/ALT (test code = ALT) 37 U/L 12-78 N ALKALINE PHOSPHATASE TOTAL ( test code = ALKP) 72 U/L 50-136 N [id number] 08:36:00* Test Item Value Reference Range Interpretation Comme nts LIPASE (test code = LIP) 67 U/L 73-393 L BASIC METABOLIC [id number] 08:29:00* Test Item Value Reference Range Interpretation Comme nts SODIUM (test code = NA) 141 mmol/L 136-145 N POTASSIUM (test code = K) 3.7 mmol/L 3.5-5.1 N CHLORIDE (test code = CL) 108 mmol/L 98-107 H CARBON DIOXIDE (test code = CO2) mmol/L 21-32 GLUCOSE (test code = GLU) mg/dL 70-100 BLOOD UREA NITROGEN (test co de = BUN) mg/dL 7-18 GLOMERULAR FILTRATION RATE ( test code = GFR) >=60 CREATININE (test code = CREAT) mg/dL 0.67-1.17 CALCIUM (test code = CA) 9.2 mg/dL 8.5-10.1 N LIVER [id number] 08:29:00* Test Item Value Reference Range Interpretation Comme nts TOTAL PROTEIN (test code = PROT) g/dl 6.4-8.2 ALBUMIN (test code = ALB) g/dl 3.4-5.0 BILIRUBIN TOTAL (test code = BILT) mg/dl 0.2-1.0 BILIRUBIN DIRECT (test code = BILD) mg/dl 0.0-0.4 SGOT/AST (test code = AST) U/L 15-37 SGPT/ALT (test code = ALT) U/L 12-78 ALKALINE PHOSPHATASE TOTAL ( test code = ALKP) U/L 50-136 [id number] 08:29:00* Test Item Value Reference Range Interpretation Comme nts LIPASE (test code = LIP) U/L 73-393 BASIC METABOLIC [id number] 08:28:00* Test Item Value Reference Range Interpretation Comme nts SODIUM (test code = NA) 141 mmol/L 136-145 N POTASSIUM (test code = K) 3.7 mmol/L 3.5-5.1 N CHLORIDE (test code = CL) 108 mmol/L 98-107 H CARBON DIOXIDE (test code = CO2) mmol/L 21-32 GLUCOSE (test code = GLU) mg/dL 70-100 BLOOD UREA NITROGEN (test co de = BUN) mg/dL 7-18 GLOMERULAR FILTRATION RATE ( test code = GFR) >=60 CREATININE (test code = CREAT) mg/dL 0.67-1.17 CALCIUM (test code = CA) mg/dL 8.5-10.1 LIVER [id number] 08:28:00* Test Item Value Reference Range Interpretation Comme nts TOTAL PROTEIN (test code = PROT) g/dl 6.4-8.2 ALBUMIN (test code = ALB) g/dl 3.4-5.0 BILIRUBIN TOTAL (test code = BILT) mg/dl 0.2-1.0 BILIRUBIN DIRECT (test code = BILD) mg/dl 0.0-0.4 SGOT/AST (test code = AST) U/L 15-37 SGPT/ALT (test code = ALT) U/L 12-78 ALKALINE PHOSPHATASE TOTAL ( test code = ALKP) U/L 50-136 [id number] 08:28:00* Test Item Value Reference Range Interpretation Comme nts LIPASE (test code = LIP) U/L 73-393 - XR CHEST 2 [id number] 14:05:00FAX: Isaías Haskins [place]: St: PRE Name: JADE GOODWIN FSED : 12/28/1990 Age/S: 28/M [address] Unit #: [id number] Loc: [place] [address] Phys: Isaías Haskins MD Acct: [id number] Dis Date: Status: PRE ER PHONE #: Exam Date: 08/21/2019 9512 FAX #: Reason: cough EXAMS: CPT CODE: [id number] XR CHEST 2 V 73921 - XR CHEST 2 V PROVIDED REASON FOR EXAM: cough COMPARISON: None available. FINDINGS: Lungs are clear of focal consolidation. Cardiac silhouette is unremarkable . Pulmonary vasculature is unremarkable . There are no acute osseous findings. IMPRESSION: No acute cardiopulmonary process. Location: V20 at 1405 Reported and signed by: SHERLY CASANOVA M.D. CC: Isaías Haskins MD Technologist: Kenzie Das CT(R) RT Trnscrd Date/Time/By: 08/21/2019 (8878) : By: RamoneKEC2 Orig PrintD/T: S: 08/21/2019 (6369) PAGE 1 Signed ReportBASI METABOLIC [id number] 09:44:00* Test Item Value Reference Range Interpretation Comme nts SODIUM (test code = NA) 140 mmol/L 136-145 N POTASSIUM (test code = K) 3.8 mmol/L 3.5-5.1 N CHLORIDE (test code = CL) 104 mmol/L 98-107 N CARBON DIOXIDE (test code = CO2) 27 mmol/L 21-32 N GLUCOSE (test code = GLU) 112 mg/dL 70-100 H BLOOD UREA NITROGEN (test code = BUN) 21 mg/dL 7-18 H GLOMERULAR FILTRATION RATE (test code = GFR) > 60.00 >=60 Reporting units: mL/min/1.73m\\S\\2 (Modified MDRD formula)REFERENCE RANGE: > or = 60 ml/min/1.73M2IF PATIENT IS -NEPALESE, MULTIPLY REPORTED RESULT BY1.21. CREATININE (test code = CREAT) 1.23 mg/dl 0.70-1.30 N CALCIUM (test code = CA) 8.8 mg/dL 8.5-10.1 N LIVER [id number] 09:44:00* Test Item Value Reference Range Interpretation Comme nts TOTAL PROTEIN (test code = PROT) 7.3 g/dl 6.4-8.2 N ALBUMIN (test code = ALB) 3.7 g/dl 3.4-5.0 N BILIRUBIN TOTAL (test code = BILT) 1.2 mg/dL 0.2-1.0 H SGOT/AST (test code = AST) 19 U/L 15-37 N SGPT/ALT (test code = ALT) 32 U/L 12-78 N ALKALINE PHOSPHATASE TOTAL ( test code = ALKP) 91 U/L 45-117 N [id number] 09:44:00* Test Item Value Reference Range Interpretation Comme nts LIPASE (test code = LIP) 125 U/L 73-393 N CBC W/AUTO [id number] 09:36:00* Test Item Value Reference Range Interpretation Comme nts WHITE BLOOD CELL (test code = WBC) 9.6 X10(3) 4.5-11.0 N RED BLOOD CELL (test code = RBC) 4.88 X10(6) 4.3-5.9 N HEMOGLOBIN (test code = HGB) 16.0 g/dL 13.5-18.0 N HEMATOCRIT (test code = HCT) 47.1 % 42.0-52.0 N MEAN CELL VOLUME (test code = MCV) 96.5 fL 78-100 N MEAN CELL HGB (test code = MCH) 32.8 pg 26.0-34.0 N MEAN CELL HGB CONCETRATION (test code = MCHC) 34.0 g/dl 30.0-37.0 N RED CELL DISTRIBUTION WIDTH (test code = RDW) 12.2 % 11.5-14.5 N PLATELET COUNT (test code = PLT) 228 X10(3) 150-350 N MEAN PLATELET VOLUME (test c ode = MPV) 10.0 fl 8.7-11.4 N NEUTROPHIL % (test code = NT%) 82.6 % 36.0-66.0 H IMMATURE GRANULOCYTE % (test code = IG%) 0.1 % 0.0-2.0 N LYMPHOCYTE % (test code = LY%) 11.6 % 16-50 L MONOCYTE % (test code = MO%) 5.1 % 0.0-13.0 N EOSINOPHIL % (test code = EO%) 0.5 % 0.0-4.5 N BASOPHIL % (test code = BA%) 0.1 % 0.0-1.5 N NEUTROPHIL # (test code = NT#) 7.9 X10(3) 1.7-7.7 H IMMATURE GRANULOCYTE # (test code = IG#) 0.01 X10(3)uL 0.00-0.03 N LYMPHOCYTE # (test code = LY#) 1.1 X10(3) 1.0-4.8 N MONOCYTE # (test code = MO#) 0.5 X10(3) 0.0-0.89 N EOSINOPHIL # (test code = EO#) 0.1 X10(3) 0.0-0.6 N BASOPHIL # (test code = BA#) 0.0 X10(3) 0.0-0.2 N RBC MORPHOLOGY REQUIRED (lulu t code = RBCM) NO NORMAL LACTIC [id number] 09:35:00* Test Item Value Reference Range Interpretation Comme nts LACTIC ACID (test code = LACT) 1.2 mmol/l 0.4-2.0 N CBC W/AUTO [id number] 09:34:00* Test Item Value Reference Range Interpretation Comme nts WHITE BLOOD CELL (test code = WBC) 9.6 X10(3) 4.5-11.0 N RED BLOOD CELL (test code = RBC) 4.88 X10(6) 4.3-5.9 N HEMOGLOBIN (test code = HGB) 16.0 g/dL 13.5-18.0 N HEMATOCRIT (test code = HCT) 47.1 % 42.0-52.0 N MEAN CELL VOLUME (test code = MCV) 96.5 fL 78-100 N MEAN CELL HGB (test code = MCH) 32.8 pg 26.0-34.0 N MEAN CELL HGB CONCETRATION (test code = MCHC) 34.0 g/dl 30.0-37.0 N RED CELL DISTRIBUTION WIDTH (test code = RDW) 12.2 % 11.5-14.5 N PLATELET COUNT (test code = PLT) 228 X10(3) 150-350 N MEAN PLATELET VOLUME (test c ode = MPV) 10.0 fl 8.7-11.4 N NEUTROPHIL % (test code = NT%) 82.6 % 36.0-66.0 H IMMATURE GRANULOCYTE % (test code = IG%) 0.1 % 0.0-2.0 N LYMPHOCYTE % (test code = LY%) 11.6 % 16-50 L MONOCYTE % (test code = MO%) 5.1 % 0.0-13.0 N EOSINOPHIL % (test code = EO%) 0.5 % 0.0-4.5 N BASOPHIL % (test code = BA%) 0.1 % 0.0-1.5 N NEUTROPHIL # (test code = NT#) 7.9 X10(3) 1.7-7.7 H IMMATURE GRANULOCYTE # (test code = IG#) 0.01 X10(3)uL 0.00-0.03 N LYMPHOCYTE # (test code = LY#) 1.1 X10(3) 1.0-4.8 N MONOCYTE # (test code = MO#) 0.5 X10(3) 0.0-0.89 N EOSINOPHIL # (test code = EO#) 0.1 X10(3) 0.0-0.6 N BASOPHIL # (test code = BA#) 0.0 X10(3) 0.0-0.2 N RBC MORPHOLOGY REQUIRED (lulu t code = RBCM) NORMAL - CT ABD PELVIS [id number] 16:48:00Name: JADE GOODWIN [facility] : 1985 Age/S: 32 / M [address] [place] [address] Unit #: [id number] Loc: [place] [address] Phys: Lexus Conde MD Acct: [id number] Dis Date: Status: REG ER PHONE #: [phone] Exam Date: 08/29/2018 1620 FAX #: [phone] Reason: Appendicitis EXAMS: CPT CODE: [id number] CT ABD PELVIS W/CONT [id number] LOCATION: V20 EXAM: - CT ABD PELVIS W/CONT HISTORY: Appendicitis TECHNIQUE: Axial imaging of the abdomen and pelvis from the lung base to the pubic symphysis following administration of unspecified intravenous contrast. Sagittal and coronal reconstructions. CT scan performed using appropriate/available dose optimization/reduction techniques. DLP 498.00 mGy*cm COMPARISON: None. FINDINGS: Lung base:Mild bibasilar atelectasis. The heart size is normal. No pericardial or pleural effusion. Liver/spleen: Unremarkable. Biliary system: The gallbladder is contracted, otherwise unremarkable. No biliary duct dilatation. Pancreas: Unremarkable. Adrenal glands: Normal. Kidneys: Unremarkable. Vascular: Normal caliber abdominal aorta.Normal portal venous opacification. Lymph nodes: No abdominal lymphadenopathy. Pelvic structures: The urinary bladder is unremarkably distended. No pelvic lymphadenopathy or free fluid. The uterus and adnexa are normal for age. Gastrointestinal tract: No abnormal bowel dilatation. Normal caliber appendix is identified. No focal fluid collections, ascites or evidence of pneumoperitoneum. PAGE 1 Signed Report (CONTINUED) Name: JADE GOODWIN [facility] : 1985 Age/S: 32 / M [address] [place] [address] Unit #: [id number] Loc: [place] [address] Phys: Lexus Conde MD Acct: [id number] Dis Date: Status: REG ER PHONE #: [phone] Exam Date: 08/29/2018 1620 FAX #: [phone] Reason: Appendicitis EXAMS: CPT CODE: [id number] CT ABD PELVIS W/CONT 58892 (Continued) Bones and soft tissues: Focal degenerative disc disease and associated L5-S1. IMPRESSION: Noevidence of acute intra-abdominal pathology. Specifically, the normal appendix is identified in theright lower quadrant, without surrounding inflammatory change. at 1648 Reported and signed by: RADHA SMITH MD. CC: Lexus Conde MD;Thomas Tan Technologist:Julio Cesar Byrnes RT (R) CTDI: 10.44 DLP: 498 Trnscb Date/Time: 08/29/2018 (1647) [email or web address] Orig Print D/T: S: 08/29/2018 (1650) CTDI: 10.44 DLP: 498 PAGE 2 Signed Report- XR ABDOMEN 1V (KUB)2018-08-29 15:37:00[facility] Name: JADE GOODWIN [address] Phys: Lexus Conde MD [place] [address] : 1985 Age: 32 Sex: M Acct: [id number] Loc: [place] PHONE #: [phone] Exam Date: 08/29/2018 Status: REG ER FAX #: [phone] Radiology No: Unit No: [id number] Reason: Abdominal pain EXAMS: CPT CODE: [id number] XR ABDOMEN 1V (KUB) 87048 Fluoro Time: DAP (Gy m2): Air Kerma (mGy): EXAM: ABDOMEN ONE VIEW INDICATION: Abdominal pain COMPARISON: None available TECHNIQUE: AP view of the abdomen. FINDINGS: The bowel gas pattern is normal. No pneumoperitoneum isidentified. No abnormal calcifications. The osseous structures are unremarkable. IMPRESSION: No acute abnormality of the abdomen. No bowel obstruction. LOCATION: B2 at 1537 Reported and signed by: Evelia Hwang M.D. CC: Lexus Conde MD; Thomas Tan Technologist: Erin Mckeon, RT (R) Transcribed D ate/Time: 08/29/2018 (5037) 16 Orig Print D/T: S: 08/29/2018 (5444) PAGE 1 Signed ReportURINALYSIS W REFLEX [id number] 15:03:00* Test Item Value Reference Range Interpretation Comme nts UA COLOR (test code = COLU) Yellow YELLOW UA APPEARANCE (test code = APPU) CLEAR CLEAR UA GLUCOSE DIPSTICK (test co de = DGLUU) NORMAL mg/dl NORMAL UA BILIRUBIN DIPSTICK (test code = BILU) NEGATIVE mg/dl NEGATIVE UA KETONE DIPSTICK (test cod e = KETU) 5 mg/dl NEGATIVE A UA SPECIFIC GRAVITY (test co de = SGU) 1.024 1.001-1.035 N UA BLOOD DIPSTICK (test code = KYLE) NEGATIVE /UL NEGATIVE UA PH DIPSTICK (test code = SKIP) 6.0 4.6-8.0 UA PROTEIN DIPSTICK (test co de = PROU) NEGATIVE mg/dl NEGATIVE UA UROBILINIOGEN DIPSTICK (test code = URO) NORMAL mg/dl NORMAL UA NITRITE DIPSTICK (test co de = PRAKASH) NEGATIVE NEGATIVE UA LEUKOCYTE ESTERASE DIPSTI CK (test code = LEUU) NEGATIVE /UL NEGATIVE UA COMMENT (test code = COMU) CLN CATCH UA WBC (test code = WBCU) 3-5 #/hpf 0-5 UA EPITHELIAL CELLS (test co de = EPIU) FEW /hpf NEG,FEW UA BACTERIA (test code = BACU) FEW /hpf NEGATIVE A UA SPERM (test code = SPERMU) FEW /hpf NEGATIVE A BASIC METABOLIC [id number] 14:51:00* Test Item Value Reference Range Interpretation Comme nts SODIUM (test code = NA) 139 mmol/L 136-145 N POTASSIUM (test code = K) 3.6 mmol/L 3.5-5.1 N CHLORIDE (test code = CL) 103 mmol/L 98-107 N CARBON DIOXIDE (test code = CO2) 28 mmol/L 21-32 N GLUCOSE (test code = GLU) 156 mg/dL 70-100 H BLOOD UREA NITROGEN (test code = BUN) 16 mg/dL 7-18 N GLOMERULAR FILTRATION RATE (test code = GFR) > 60.00 >=60 Reporting units: mL/min/1.73m\\S\\2 (Modified MDRD formula)REFERENCE RANGE: > or = 60 ml/min/1.73M2IF PATIENT IS -NEPALESE, MULTIPLY REPORTED RESULT BY1.21. CREATININE (test code = CREAT) 1.20 mg/dL 0.67-1.17 H CALCIUM (test code = CA) 8.8 mg/dL 8.5-10.1 N LIVER [id number] 14:51:00* Test Item Value Reference Range Interpretation Comme nts TOTAL PROTEIN (test code = PROT) 7.5 g/dl 6.4-8.2 N ALBUMIN (test code = ALB) 3.6 g/dl 3.4-5.0 N BILIRUBIN TOTAL (test code = BILT) 0.9 mg/dl 0.2-1.0 N BILIRUBIN DIRECT (test code = BILD) 0.10 mg/dl 0.0-0.4 N SGOT/AST (test code = AST) 22 U/L 15-37 N SGPT/ALT (test code = ALT) 37 U/L 12-78 N ALKALINE PHOSPHATASE TOTAL ( test code = ALKP) 95 U/L 50-136 N [id number] 14:51:00* Test Item Value Reference Range Interpretation Comme nts LIPASE (test code = LIP) 97 U/L 73-393 N CBC W/AUTO [id number] 14:34:00* Test Item Value Reference Range Interpretation Comme nts WHITE BLOOD CELL (test code = WBC) 8.7 X10(3) 4.5-11.0 N RED BLOOD CELL (test code = RBC) 4.85 X10(6) 4.3-5.9 N HEMOGLOBIN (test code = HGB) 16.1 g/dL 13.5-18.0 N HEMATOCRIT (test code = HCT) 45.7 % 42.0-52.0 N MEAN CELL VOLUME (test code = MCV) 94.2 fl 78-100 N MEAN CELL HGB (test code = MCH) 33.2 pg 26.0-34.0 N MEAN CELL HGB CONCETRATION (test code = MCHC) 35.2 g/dl 30.0-37.0 N RED CELL DISTRIBUTION WIDTH (test code = RDW) 12.1 % 11.5-14.5 N PLATELET COUNT (test code = PLT) 248 X10(3) 150-350 N MEAN PLATELET VOLUME (test c ode = MPV) 10.0 fl 8.7-11.4 N NEUTROPHIL % (test code = NT%) 74.5 % 36.0-66.0 H IMMATURE GRANULOCYTE % (test code = IG%) 0.2 % 0.0-2.0 N LYMPHOCYTE % (test code = LY%) 17.1 % 16-50 N MONOCYTE % (test code = MO%) 6.9 % 0.0-13.0 N EOSINOPHIL % (test code = EO%) 1.1 % 0.0-4.5 N BASOPHIL % (test code = BA%) 0.2 % 0.0-1.5 N NUCLEATED RBC % (test code = NRBC%) 0.0 % 0-0.2 N NEUTROPHIL # (test code = NT#) 6.5 X10(3) 1.7-7.7 N IMMATURE GRANULOCYTE # (test code = IG#) 0.02 X10(3)uL 0.00-0.03 N LYMPHOCYTE # (test code = LY#) 1.5 X10(3) 0.7-4.0 N MONOCYTE # (test code = MO#) 0.6 X10(3) 0.0-0.89 N EOSINOPHIL # (test code = EO#) 0.1 X10(3) 0.0-0.6 N BASOPHIL # (test code = BA#) 0.0 X10(3) 0.0-0.2 N NUCLEATED RBC # (test code = NRBC#) 0.00 K/mm3 0.0-0.1 N Notes Date/Time Note Provider Source 2023-12-11 12:38:00 [facility] ([facility]) EMERGENCY PROVIDER REPORT REPORT#:[id number] REPORT STATUS: Signed DATE:12/11/23 TIME: 123 PATIENT: JADE GOODWIN UNIT #: [id number] ROOM/BED: AGE: 37 SEX: M PCP PHYS: No Primary or Family Physician SERVICE AUTHOR: Anthony Chauhan Jr, MD * ALL edits or amendments must be made on the electronic/computer document * HPI-General Illness General Initial Greet Date/Time 12/11/23 1227 Presentation Chief Complaint __ (body aches) Free Text HPI Notes Free Text HPI Notes 37-year-old male patient with a history of bronchitis comes in complaining of body aches and fatigue. 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 He also noticed some wheezing Review of Systems Free Text ROS Notes Free Text ROS Notes - CONSTITUTIONAL: Fatigue - HEENT: Denies changes in vision and hearing. - RESPIRATORY: As mentioned in HPI - CV: As mentioned in HPI - GI: Denies abdominal pain, nausea, vomiting and diarrhea. - : Denies dysuria and urinary frequency. - MSK: Denies myalgia and joint pain. - SKIN: Denies rash and pruritus. - NEUROLOGICAL: Denies headache and syncope. - PSYCHIATRIC: Denies recent changes in mood. Denies anxiety and depression. Past Medical History - Adult Stated Complaint muscle pain Allergies Coded Allergies: No Known Allergies (09/21/21) Home Medications Active Scripts IBUPROFEN (ADVIL) 400 MG PO Q6H PRN PRN PAIN IBUPROFEN (ADVIL) 400 MG PO Q6H PRN PRN PAIN #20 TABS Prov: 01/01/21 AZITHROMYCIN (ZITHROMAX) 500 MG PO DAILY AZITHROMYCIN (ZITHROMAX) 500 MG PO DAILY #3 TABS Prov: 09/21/21 ONDANSETRON ODT (ZOFRAN ODT) 4 MG PO Q6H PRN PRN NAUSEA/VOMITING ONDANSETRON ODT (ZOFRAN ODT) 4 MG PO Q6H PRN PRN NAUSEA/VOMITING #15 TABS Prov: 09/21/21 IBUPROFEN (MOTRIN) 600 MG PO Q6H PRN PRN PAIN/FEVER IBUPROFEN (MOTRIN) 600 MG PO Q6H PRN PRN PAIN/FEVER #30 TABS Prov: 09/21/21 ACETAMINOPHEN (TYLENOL) 650 MG PO Q6H PRN PRN PAIN/FEVER ACETAMINOPHEN (TYLENOL) 650 MG PO Q6H PRN PRN PAIN/FEVER #40 TABS Prov: 09/21/21 KETOROLAC (TORADOL) 10 MG PO Q6H PRN PRN PAIN KETOROLAC (TORADOL) 10 MG PO Q6H PRN PRN PAIN #20 TABS Prov: 07/12/20 CYCLOBENZAPRINE (FLEXERIL) 10 MG PO Q8H PRN PRN MUSCLE SPASMS/PAIN CYCLOBENZAPRINE (FLEXERIL) 10 MG PO Q8H PRN PRN MUSCLE SPASMS/PAIN #15 TABS Prov: 07/12/20 methylPREDNISolone (MEDROL 4 MG DOSEPAK) 4 MG PO ASDIR methylPREDNISolone (MEDROL 4 MG DOSEPAK) 4 MG PO ASDIR #1 PACKET Prov: 07/12/20 IBUPROFEN (MOTRIN) 800 MG PO TID PRN PRN PAIN IBUPROFEN (MOTRIN) 800 MG PO TID PRN PRN PAIN #30 TABS Prov: 01/16/21 tiZANidine (ZANAFLEX) 4 MG PO Q8H PRN PRN MUSCLE SPASMS tiZANidine (ZANAFLEX) 4 MG PO Q8H PRN PRN MUSCLE SPASMS #30 TABS Prov: 01/16/21 IBUPROFEN (MOTRIN) 800 MG PO TID PRN PRN PAIN IBUPROFEN (MOTRIN) 800 MG PO TID PRN PRN PAIN #30 TABS Prov: 05/14/23 FAMOTIDINE (PEPCID) 40 MG PO BEDTIME FAMOTIDINE (PEPCID) 40 MG PO BEDTIME #30 TABS Prov: 07/30/23 AZITHROMYCIN (ZITHROMAX) 250 MG PO DAILY AZITHROMYCIN (ZITHROMAX) 250 MG PO DAILY #4 TABS Prov: 10/30/22 predniSONE 40 MG PO DAILY 5 Days #10 TABS Prov: 10/30/22 ALBUTEROL (ALBUTEROL 2.5 MG/3 ML (75mL)) 2.5 MG NEB RTQ4H PRN PRN WHEEZING ALBUTEROL (ALBUTEROL 2.5 MG/3 ML (75mL)) 2.5 MG NEB RTQ4H PRN PRN WHEEZING #60 ML Ref 3 Prov: 10/30/22 Reported Medications ESOMEPRAZOLE MAG DR (NexIUM) 20 MG PO DAILY Past Medical History: Reports: Asthma (NOW INFORMED AT D/C CONSULT), GERD/gastritis, Dyslipidemia. Additional Medical History Allergic rhinitis. Past Surgical History: Denies: Abdominal surgery, Appendectomy. Family History: Reports: Cancer, Diabetes, Heart disease, Hypertension. Alcohol Use Denies EtOH use Drug Use Denies recreational drugs Physical Exam Vital Signs Vital Signs First Documented: Result Date Time Pulse Ox 98 12/10 1234 B/P 126/88 / 1234 B/P Mean 100 / 1234 O2 Delivery Room air 12/10 1234 Temp 98.5 / 1234 Pulse 90 12/10 1234 Resp 20 12/10 1234 Last Documented: Result Date Time Pulse Ox 98 12/10 1234 B/P 126/88 12/10 1234 B/P Mean 100 07/10 1234 O2 Delivery Room air 12/10 1234 Temp 98.5 12/10 1234 Pulse 90 / 1234 Resp 20 12/10 1234 Review of Vital Signs Reviewed Free Text PE Notes Free Text PE Notes PHYSICAL EXAM: - GENERAL: Alert and oriented x 3. No acute distress. - EYES: No conjunctivitis, anicteric. - HEENT: Moist mucous membranes, No cervical lymphadenopathy. -NECK: - LUNGS: Bilateral wheezing, mild - CARDIOVASCULAR: Regular rate and rhythm. -Chest wall: - ABDOMEN: Soft, non-tender and non-distended. No palpable masses. - EXTREMITIES: No edema. Non-tender. -Musculoskeletal: -SKIN: No rashes or lesions. Warm. - NEUROLOGIC: No focal neurological deficits. - PSYCHIATRIC: Cooperative. Interpretation Diagnostics Lab Results Interpretation Results Laboratory Tests: 12/10 12/10 12/10 1304 1300 1259 Chemistry POC Sodium (138 - 146 mmol/L) 139 POC Potassium (3.5 - 4.5 mmol/L) 4.0 POC Chloride (98 - 107 mmol/L) 105 POC Total CO2 (23 - 30 mmol/L) 28 POC Anion Gap (4 - 14 mmol/L) 6 POC BUN (8 - 26 mg/dL) 16 POC Creatinine (0.51 - 1.19 mg/dL) 0.97 Est GFR (CKD-EPI 2020) (>or=60 mL/min) 102 POC Glucose (74 - 100 mg/dL) 94 POC Ioniz Calcium [place] (1.15 - 1.33 mmol/L) 1.18 Serology POC Influenza A Ag (Negative) Negative POC Influenza B Ag (Negative) Negative SARS-CoV-2 Ag (Rapid) (Negative) Negative POC Group A Strep Rpd (Negative) Negative 12/10 1154 Hematology POC WBC (3.9 - 9.4 10 3/uL) 6.1 POC RBC (4.14 - 5.52 10 6/uL) 5.03 POC Hgb (11.9 - 16.7 g/dL) 17.1 H POC Hct (36.1 - 49.4 %) 46.1 POC MCV (83.2 - 96.0 fL) 91.7 POC MCH (27.1 - 32.5 pg) 34.0 H POC MCHC (31.0 - 35.8 g/dL) 37.1 H POC RDW Coeff of Jo Ann (12.0 - 15.0 %) 12.5 POC Platelet Count (155 - 330 10 3/uL) 257 POC MPV (8.7 - 12.6 fL) 10.2 POC Mixed Cells % (3.2 - 16.9 %) 8.1 POC Neut # (2.2 - 6.4 10 3/uL) 4.2 POC Lymph # (Auto) (0.9 - 3.0 10 3/uL) 1.4 POC Mixed Cells # (0.2 - 1.1 10 3/uL) 0.5 POC Lymphocytes % (16.8 - 42.5 %) 23.2 POC Neutrophils % (46.4 - 74.7 %) 68.7 Microbiology: Date/Time Procedure - Status Source Growth 12/10 1305 Group A Streptococcus DNA Detection - ORD THROAT Lab Imaging Statement Laboratory radiographic studies reviewed and considered in the medical decision-making. Re-Evaluation MDM ED Course Medication(s) Ordered Medication(s) Ordered: Autonomic Drugs Sig/Merlin Start time Last Medication Dose Route Stop Time Status Admin Albuterol/Ipratropium 3 ML X1ED STA 12/10 1236 DC 12/10 INH 12/10 1237 1309 Eye, Ear, Nose And Throat (Een Sig/Merlin Start time Last Medication Dose Route Stop Time Status Admin Dexamethasone Sodium 10 MG X1ED STA 12/10 1237 DC 12/10 Phosphate IV 12/10 1238 1309 Patient Discharge Departure Vital Signs/Condition Vital Signs First Documented: Result Date Time Pulse Ox 98 12/10 1234 B/P 126/88 12/10 1234 B/P Mean 100 12/10 1234 O2 Delivery Room air 12/10 1234 Temp 98.5 12/10 1234 Pulse 90 12/10 1234 Resp 20 12/10 1234 Last Documented: Result Date Time Pulse Ox 98 12/10 1234 B/P 126/88 12/10 1234 B/P Mean 100 12/10 1234 O2 Delivery Room air 12/10 1234 Temp 98.5 12/10 1234 Pulse 90 12/10 1234 Resp 20 12/10 1234 All vital signs available at the time of this entry have been reviewed. Condition Stable, Improved Clinical Impression Clinical Impression Primary Impression: Body aches Secondary Impressions: Wheezing Disposition Decision Discharge )( Discharged to Home Yes )( Time 1332 )( Date 12/11/23 Discharge/Care Plan (Auto) Prescriptions Current Visit Scripts dexAMETHasone 6 MG PO BID dexAMETHasone 6 MG PO BID #14 TABS Patient Instructions ED Bronchospasm (Adult) at 1333 RPT #:[id number] END OF REPORT [facility] 2023-07-30 17:12:00 [facility] ([facility]) EMERGENCY PROVIDER REPORT REPORT#:[id number] REPORT STATUS: Signed DATE:07/30/23 TIME: 1712 PATIENT: JADE GOODWIN UNIT #: [id number] ROOM/BED: AGE: 37 SEX: M PCP PHYS: No Primary or Family Physician SERVICE AUTHOR: Kervin Quinn MD * ALL edits or amendments must be made on the electronic/computer document * HPI-Abd Pain M Under 40 Free Text HPI Notes Free Text HPI Notes Patient states that he has a history of gastritis and usually takes Gaviscon when he has flareups. Patient states for last couple days has noticed some increased pain when he has something to eat. Patient states around 40 minutes ago had some to eat and also burning sensation to the top part of his left foot of his stomach. Patient denies any chest pain, shortness of breath or dyspnea on exertion. Patient denies any nausea, vomiting, diarrhea, constipation, hematuria or dysuria. Patient states intermittent drinker, but has not had anything last couple of days. Patient states always deals with a certain amount of stress as well which probably contributes to his stomach issues. General Initial Greet Date/Time 07/30/23 1701 Presentation Chief Complaint Abdominal pain Sudden in Onset? Yes Onset Occurred Days ago (2) Review of Systems ROS Statements All systems rev neg except as marked. Focused Review of Systems GI Reports: Abdominal pain. Past Medical History - Adult Stated Complaint SHORTNESS OF BREATH, ABDOMINAL PAIN, VOMITING Allergies Coded Allergies: No Known Allergies (09/21/21) Home Medications Active Scripts IBUPROFEN (ADVIL) 400 MG PO Q6H PRN PRN PAIN IBUPROFEN (ADVIL) 400 MG PO Q6H PRN PRN PAIN #20 TABS Prov: 01/01/21 AZITHROMYCIN (ZITHROMAX) 500 MG PO DAILY AZITHROMYCIN (ZITHROMAX) 500 MG PO DAILY #3 TABS Prov: 09/21/21 ONDANSETRON ODT (ZOFRAN ODT) 4 MG PO Q6H PRN PRN NAUSEA/VOMITING ONDANSETRON ODT (ZOFRAN ODT) 4 MG PO Q6H PRN PRN NAUSEA/VOMITING #15 TABS Prov: 09/21/21 IBUPROFEN (MOTRIN) 600 MG PO Q6H PRN PRN PAIN/FEVER IBUPROFEN (MOTRIN) 600 MG PO Q6H PRN PRN PAIN/FEVER #30 TABS Prov: 09/21/21 ACETAMINOPHEN (TYLENOL) 650 MG PO Q6H PRN PRN PAIN/FEVER ACETAMINOPHEN (TYLENOL) 650 MG PO Q6H PRN PRN PAIN/FEVER #40 TABS Prov: 09/21/21 KETOROLAC (TORADOL) 10 MG PO Q6H PRN PRN PAIN KETOROLAC (TORADOL) 10 MG PO Q6H PRN PRN PAIN #20 TABS Prov: 07/12/20 CYCLOBENZAPRINE (FLEXERIL) 10 MG PO Q8H PRN PRN MUSCLE SPASMS/PAIN CYCLOBENZAPRINE (FLEXERIL) 10 MG PO Q8H PRN PRN MUSCLE SPASMS/PAIN #15 TABS Prov: 07/12/20 methylPREDNISolone (MEDROL 4 MG DOSEPAK) 4 MG PO ASDIR methylPREDNISolone (MEDROL 4 MG DOSEPAK) 4 MG PO ASDIR #1 PACKET Prov: 07/12/20 IBUPROFEN (MOTRIN) 800 MG PO TID PRN PRN PAIN IBUPROFEN (MOTRIN) 800 MG PO TID PRN PRN PAIN #30 TABS Prov: 01/16/21 tiZANidine (ZANAFLEX) 4 MG PO Q8H PRN PRN MUSCLE SPASMS tiZANidine (ZANAFLEX) 4 MG PO Q8H PRN PRN MUSCLE SPASMS #30 TABS Prov: 01/16/21 IBUPROFEN (MOTRIN) 800 MG PO TID PRN PRN PAIN IBUPROFEN (MOTRIN) 800 MG PO TID PRN PRN PAIN #30 TABS Prov: 05/14/23 AZITHROMYCIN (ZITHROMAX) 250 MG PO DAILY AZITHROMYCIN (ZITHROMAX) 250 MG PO DAILY #4 TABS Prov: 10/30/22 predniSONE 40 MG PO DAILY 5 Days #10 TABS Prov: 10/30/22 ALBUTEROL (ALBUTEROL 2.5 MG/3 ML (75mL)) 2.5 MG NEB RTQ4H PRN PRN WHEEZING ALBUTEROL (ALBUTEROL 2.5 MG/3 ML (75mL)) 2.5 MG NEB RTQ4H PRN PRN WHEEZING #60 ML Ref 3 Prov: 10/30/22 Reported Medications ESOMEPRAZOLE MAG DR (NexIUM) 20 MG PO DAILY Calculated Suicide Risk (nurs) No risk Pt reports no significant: Past surgical history, Family history, Social history Past Medical History: Reports: Asthma (NOW INFORMED AT D/C CONSULT), GERD/gastritis, Dyslipidemia. Additional Medical History Allergic rhinitis. Past Surgical History: Denies: Abdominal surgery, Appendectomy. Family History: Reports: Cancer, Diabetes, Heart disease, Hypertension. Alcohol Use Denies EtOH use Drug Use Denies recreational drugs Smoking status for patients 13 years old or older: Unknown,if ever smoked Physical Exam Vital Signs Vital Signs First Documented: Result Date Time Pulse Ox 99 07/30 1653 B/P 126/84 07/30 1653 B/P Mean 98 07/30 1653 O2 Delivery Room air 07/30 165 Temp 36.3 07/30 1653 Pulse 70 07/30 1653 Resp 18 07/30 1653 Last Documented: Result Date Time Pulse Ox 99 07/30 1653 B/P 126/84 07/30 1653 B/P Mean 98 07/30 1653 O2 Delivery Room air 07/30 165 Temp 36.3 07/30 1653 Pulse 70 07/30 1653 Resp 18 07/30 1653 Review of Vital Signs Reviewed Focused PE General/Const General/Const Awake, Alert, No acute distress, Well appearing, Well developed , Well hydrated, Well nourished, Cooperative, Not toxic appearing Appearance/Presentation In pain. Resp/Chest Respiratory/Chest Atraumatic, Breath sounds NL, Breath sounds = bilat, No respiratory distress, No rales, No rhonchi, No wheezing, No retractions, No stridor, No chest tenderness, No chest wall deformity, No crepitus Cardiovascular Cardiovascular Heart rate NL, Regular rhythm, Heart sounds NL, No gallop, No murmurs, No rubs, Cap refill not delayed, Peripheral circulation NL, Pulses = bilaterally, No gross BP differential Abdomen/GI Abdomen/GI Atraumatic, Soft, McBurney's non-tender, No guarding, No rebound, BS normoactive, No distention, No hernia, No palpable mass, No pulsatile mass Tenderness/Guarding/Rebound Tender LLQ. MS Back Back Atraumatic, Inspection NL, Full range of motion, Painless range of motion, Non-tender, No midline vertebral tend, No paraspinal tenderness, No muscle spasm, Straight leg raise neg, No CVA tenderness Interpretation Diagnostics Lab Results Interpretation Results Laboratory Tests 07/30/231717: [Embedded Image Not Available] 07/30/231716: [Embedded Image Not Available] Laboratory Tests: 07/30 Chemistry Sodium (136 - 145 mmol/L) 140 Potassium (3.5 - 5.1 mmol/L) 3.5 Chloride (98 - 107 mmol/L) 107 Carbon Dioxide (21 - 32 mmol/L) 29 BUN (7 - 18 mg/dL) 11 Creatinine (0.67 - 1.17 mg/dL) 1.15 Estimated GFR (MDRD) (>=60) > 60.00 Glucose (70 - 100 mg/dL) 111 H Calcium (8.5 - 10.1 mg/dL) 8.4 L Total Bilirubin (0.2 - 1.0 mg/dl) 1.0 AST (15 - 37 U/L) 25 ALT (12 - 78 U/L) 33 Alkaline Phosphatase (50 - 136 U/L) 70 Troponin I High Sens (<=3.0 pg/ml) 5 Total Protein (6.4 - 8.2 g/dl) 6.5 Albumin (3.4 - 5.0 g/dl) 3.3 L Lipase (13 - 75 U/L) 27 Hematology WBC (4.5 - 11.0 X10(3)) 6.7 RBC (4.3 - 5.9 X10(6)) 4.89 Hgb (13.5 - 18.0 g/dL) 16.1 Hct (42.0 - 52.0 %) 45.3 MCV (78 - 100 fl) 92.6 MCH (26.0 - 34.0 pg) 32.9 MCHC (30.0 - 37.0 g/dl) 35.5 RDW (11.5 - 14.5 %) 11.8 Plt Count (150 - 400 X10(3)) 252 MPV (8.7 - 11.4 fl) 9.6 Neut % (Auto) (36.0 - 66.0 %) 66.5 H Lymph % (Auto) (16.0 - 50.0 %) 23.2 [place] % (Auto) (0.0 - 13.0 %) 7.0 Eos % (Auto) (0.0 - 4.5 %) 2.2 Baso % (Auto) (0.0 - 1.5 %) 0.7 Immature Gran # (Auto) (0.00 - 0.03 X10(3)uL) 0.03 Absolute Neuts (auto) (1.70 - 7.70 X10(3)) 4.46 Absolute Lymphs (auto) (0.70 - 4.00 X10(3)) 1.56 Absolute Monos (auto) (0.00 - 0.89 X10(3)) 0.47 Absolute Eos (auto) (0.00 - 0.60 X10(3)) 0.15 Absolute Basos (auto) (0.00 - 0.20 X10(3)) 0.05 Absolute Nucleated RBC (0.0 - 0.1 K/mm3) 0.00 Immature Gran % (0.0 - 2.0 %) 0.4 Nucleated RBC % (0 - 0.2 %) 0.0 RBC Morphology (NORMAL) NO Lab Imaging Statement Laboratory radiographic studies reviewed and considered in the medical decision-making. ECG #1 Interpretation Date 07/30/23 Time 1724 Interpreted by and reviewed by me NL ECG Interpretation Normal rate, Normal sinus rhythm, No acute ischemic changes, No STEMI, Normal QRS, Normal ST waves, Normal T waves, Normal axis, Normal intervals, Adequate tracing Rate 75 Sonography US Focused Biliary Findings: Stones/Wall Thickening Gallstones absent, GB wall not thickened Re-Evaluation MDM Free Text MDM Notes Additional Text Patient states total relief of symptoms after GI cocktail )( Re-Evaluation/Progress #1 )( Re-Eval Status Improved, Resolved ED Course Medication(s) Ordered Medication(s) Ordered: Central Nervous System Agents Sig/Merlin Start time Last Medication Dose Route Stop Time Status Admin Ketorolac 30 MG X1ED STA 07/30 1709 DC 07/30 Tromethamine IV 07/30 171 1715 Gastrointestinal Drugs Sig/Merlin Start time Last Medication Dose Route Stop Time Status Admin Al Hydrox/Mg Hydrox/ 30 ML X1ED STA 07/30 1709 DC 07/30 Simethicone PO 07/30 171 1714 Lidocaine HCl 15 ML Famotidine 20 MG X1ED STA 07/30 1709 DC 07/30 IV 07/30 171 1714 Patient Discharge Departure Vital Signs/Condition Vital Signs First Documented: Result Date Time Pulse Ox 99 07/30 1653 B/P 126/84 07/30 1653 B/P Mean 98 07/30 1653 O2 Delivery Room air 07/30 1653 Temp 36.3 07/30 1653 Pulse 70 07/30 1653 Resp 18 07/30 1653 Last Documented: Result Date Time Pulse Ox 99 07/30 1653 B/P 126/84 07/30 1653 B/P Mean 98 07/30 1653 O2 Delivery Room air 07/30 1653 Temp 36.3 07/30 1653 Pulse 70 07/30 1653 Resp 18 07/30 1653 All vital signs available at the time of this entry have been reviewed. Condition Stable, Improved Clinical Impression Clinical Impression Primary Impression: Gastritis Time of Impression 1755 Disposition Decision Discharge )( Discharged to Home Yes )( Time 175 )( Date 07/30/23 Discharge/Care Plan (Auto) Prescriptions Current Visit Scripts FAMOTIDINE (PEPCID) 40 MG PO BEDTIME FAMOTIDINE (PEPCID) 40 MG PO BEDTIME #30 TABS Patient Instructions ED Gastritis (Adult) Additional Instructions Twgx-srk-[id number] medications such as Tums, Rolaids, Maalox or Mylanta can certainly help. Please work on decreasing your stress levels. Please follow-up with your regular primary care doctor as needed Departure Forms WORK/SCHOOL EXCUSE VARIABLE Restrictions apply through 08/01/23 at 1757 RPT #:[id number] END OF REPORT [facility] 2023-05-14 19:26:00 [facility] ([facility]) EMERGENCY PROVIDER REPORT REPORT#:[id number] REPORT STATUS: Signed DATE:05/14/23 TIME: 1925 PATIENT: JADE GOODWIN UNIT #: [id number] ROOM/BED: AGE: 37 SEX: M PCP PHYS: No Primary or Family Physician SERVICE AUTHOR: Krystal Hernandez * ALL edits or amendments must be made on the electronic/computer document * Krystal Hernandez 05/14/231925: HPI-Should/Arm Prob/Inj General Initial Greet Date/Time 05/14/231822 Presentation Chief Complaint Shoulder injury L Free Text HPI Notes Free Text HPI Notes Patient with a history of frequent left shoulder dislocations comes in stating that he was lifting a mattress and felt his shoulder dislocate and then popped back in. Patient comes in for further evaluation. Patient has full range of motion at this time. Review of Systems ROS Statements All systems rev neg except as marked. Basic Review of Systems Basic ROS EYES: No redness, ENT: No sore throat, RESP: No SOB, CV: No chest pain , GI: No abd pain/vomiting, : No dysuria/frequency, HEM: No bleeding/bruising, PSYCH: NL thought content Focused Review of Systems Constitutional Denies: Chills, Fever, Lethargy. Musculoskeletal Denies: Back pain, Extremity pain, Extremity swelling, Joint pain, Joint swelling, Lumbar pain, Myalgia, Neck pain, Thoracic pain. Skin Denies: Abrasion, Laceration. Neurologic Denies: Focal weakness, Numbness. Past Medical History - Adult Stated Complaint DISLOCATED RIGHT SHOULDER Allergies Coded Allergies: No Known Allergies (09/21/21) Home Medications Active Scripts IBUPROFEN (ADVIL) 400 MG PO Q6H PRN PRN PAIN IBUPROFEN (ADVIL) 400 MG PO Q6H PRN PRN PAIN #20 TABS Prov: 01/01/21 AZITHROMYCIN (ZITHROMAX) 500 MG PO DAILY AZITHROMYCIN (ZITHROMAX) 500 MG PO DAILY #3 TABS Prov: 09/21/21 ONDANSETRON ODT (ZOFRAN ODT) 4 MG PO Q6H PRN PRN NAUSEA/VOMITING ONDANSETRON ODT (ZOFRAN ODT) 4 MG PO Q6H PRN PRN NAUSEA/VOMITING #15 TABS Prov: 09/21/21 IBUPROFEN (MOTRIN) 600 MG PO Q6H PRN PRN PAIN/FEVER IBUPROFEN (MOTRIN) 600 MG PO Q6H PRN PRN PAIN/FEVER #30 TABS Prov: 09/21/21 ACETAMINOPHEN (TYLENOL) 650 MG PO Q6H PRN PRN PAIN/FEVER ACETAMINOPHEN (TYLENOL) 650 MG PO Q6H PRN PRN PAIN/FEVER #40 TABS Prov: 09/21/21 KETOROLAC (TORADOL) 10 MG PO Q6H PRN PRN PAIN KETOROLAC (TORADOL) 10 MG PO Q6H PRN PRN PAIN #20 TABS Prov: 07/12/20 CYCLOBENZAPRINE (FLEXERIL) 10 MG PO Q8H PRN PRN MUSCLE SPASMS/PAIN CYCLOBENZAPRINE (FLEXERIL) 10 MG PO Q8H PRN PRN MUSCLE SPASMS/PAIN #15 TABS Prov: 07/12/20 methylPREDNISolone (MEDROL 4 MG DOSEPAK) 4 MG PO ASDIR methylPREDNISolone (MEDROL 4 MG DOSEPAK) 4 MG PO ASDIR #1 PACKET Prov: 07/12/20 IBUPROFEN (MOTRIN) 800 MG PO TID PRN PRN PAIN IBUPROFEN (MOTRIN) 800 MG PO TID PRN PRN PAIN #30 TABS Prov: 01/16/21 tiZANidine (ZANAFLEX) 4 MG PO Q8H PRN PRN MUSCLE SPASMS tiZANidine (ZANAFLEX) 4 MG PO Q8H PRN PRN MUSCLE SPASMS #30 TABS Prov: 01/16/21 AZITHROMYCIN (ZITHROMAX) 250 MG PO DAILY AZITHROMYCIN (ZITHROMAX) 250 MG PO DAILY #4 TABS Prov: 10/30/22 predniSONE 40 MG PO DAILY 5 Days #10 TABS Prov: 10/30/22 ALBUTEROL (ALBUTEROL 2.5 MG/3 ML (75mL)) 2.5 MG NEB RTQ4H PRN PRN WHEEZING ALBUTEROL (ALBUTEROL 2.5 MG/3 ML (75mL)) 2.5 MG NEB RTQ4H PRN PRN WHEEZING #60 ML Ref 3 Prov: 10/30/22 Reported Medications ESOMEPRAZOLE MAG DR (NexIUM) 20 MG PO DAILY Pt reports no significant: Past medical history, Past surgical history, Family history, Social history Physical Exam Vital Signs Vital Signs First Documented: Result Date Time Pulse Ox 98 05/14 182 B/P 138/78 05/14 182 B/P Mean 98 05/14 1822 O2 Delivery Room air 05/14 1822 O2 Flow Rate 0 05/14 1822 Temp 37.0 05/14 1822 Pulse 87 05/14 1822 Resp 18 05/14 1822 Last Documented: Result Date Time Pulse Ox 98 05/14 182 B/P 138/78 05/14 1822 B/P Mean 98 05/14 1822 O2 Delivery Room air 05/14 1822 O2 Flow Rate 0 05/14 1822 Temp 37.0 05/14 1822 Pulse 87 05/14 1822 Resp 18 05/14 1822 Review of Vital Signs Reviewed Basic Physical Exam Basic PE GEN: Well appearing/NAD, HEAD: Atraumatic/NC, EYES: PERRL, conj clear, ENT: Membranes moist, NECK: Supple, RESP: No resp distress, CV: Reg rate rhythm, ABD: Soft/non-tender, LOW EXT: No gross abnl, SKIN: No rashes, warm/dry, NEURO: alert oriented, NEURO: gross movement NL, PSYCH: NL thought content Focused PE General/Const General/Const Awake, Alert, Well appearing MS Neck Neck Supple, Full range of motion, No swelling, Non-tender Resp/Chest Respiratory/Chest Breath sounds NL, Breath sounds = bilat, No respiratory distress, No rales, No rhonchi, No wheezing Cardiovascular Cardiovascular Heart rate NL, Regular rhythm, Heart sounds NL, Peripheral circulation NL MS Upper Extrem Upper Extremity/MS Atraumatic, Inspection NL, Full range of motion, No swelling, Non-tender, No erythema, No deformity, Neurologic intact, Vascular intact Skin Skin Color NL, Warm, Dry, Intact, Turgor NL, No swelling Neurologic Neurologic Oriented X3, Speech NL, No motor deficits, No sensory deficits Interpretation Diagnostics Lab Results Interpretation Results Recent Impressions: RADIOLOGY - XR SHOULDER 2+V LT 05/14 1849 Report Impression - Status: SIGNED Entered: 05/14/20231904 IMPRESSION: No acute fracture or dislocation. Curvilinear avulsion fracture of the inferior glenoid margin and flattening of the superolateral humeral head appear chronic. Impression By: [email or web address] - PITA JUANITA Greer Imaging Statement Radiographic studies reviewed and considered in the medical decision-making. Re-Evaluation MDM Free Text MDM Notes Free Text MDM Notes X-ray does not show any acute findings. Patient was advised to follow-up with PCP and Ortho specialist or return to the ER immediately if symptoms were to change or worsen. Patient was reassured and understood. Patient Discharge Departure Vital Signs/Condition Vital Signs First Documented: Result Date Time Pulse Ox 98 05/14 182 B/P 138/78 05/14 182 B/P Mean 98 05/14 1822 O2 Delivery Room air 05/14 182 O2 Flow Rate 0 05/14 1822 Temp 37.0 05/14 182 Pulse 87 05/14 182 Resp 18 05/14 182 Last Documented: Result Date Time Pulse Ox 98 05/14 1822 B/P 138/78 05/14 182 B/P Mean 98 05/14 1822 O2 Delivery Room air 05/14 1822 O2 Flow Rate 0 05/142 Temp 37.0 05/14 182 Pulse 87 05/14 182 Resp 18 05/14 182 All vital signs available at the time of this entry have been reviewed. Clinical Impression Clinical Impression Primary Impression: Injury of left shoulder Disposition Decision Discharge )( Discharged to Home Yes )( Time 1925 )( Date 05/14/23 Discharge/Care Plan Counseled Regarding Diagnosis, Imaging studies, Prescriptions, Need for follow- up, When to return to ED (Auto) Prescriptions Current Visit Scripts IBUPROFEN (MOTRIN) 800 MG PO TID PRN PRN PAIN IBUPROFEN (MOTRIN) 800 MG PO TID PRN PRN PAIN #30 TABS Patient Instructions ED Shoulder Pain, Uncertain Cause Discharge Note I have spoken with the patient and/or caregivers. I have explained the patient's condition, diagnoses and treatment plan based on the information available to me at this time. I have answered the patient's and/or caregiver's questions and addressed any concerns. The patient and/or caregivers have as good an understanding of the patient's diagnosis, condition and treatment plan as can be expected at this point. The vital signs have been stable. The patient's condition is stable and appropriate for discharge from the emergency department. The patient will pursue further outpatient evaluation with the primary care physician or other designated or consulting physician as outlined in the discharge instructions. The patient and/or caregivers are agreeable to this plan of care and follow-up instructions have been explained in detail. The patient and/or caregivers have received these instructions in written format and have expressed an understanding of the discharge instructions. The patient and/or caregivers are aware that any significant change in condition or worsening of symptoms should prompt an immediate return to this or the closest emergency department or a call to 911. Ayush Chauhan 05/14/23 2143: Patient Discharge Departure Discharge/Care Plan Referrals Provider Referral: Janusz Gee MD Follow-Up: Call for appointment Address: [address] [place] [address] [place] [address] Supervising Physician Note MidLv Saw Pt Alone I have reviewed the PA/[employer]IST's note and plan of care. I was available for consultation as needed at all times during the patient's visit in the emergency department. I at [phone] at [phone] RPT #:[id number] END OF REPORT [facility] 2022-10-30 16:44:00 [facility]) EMERGENCY PROVIDER REPORT REPORT#:[id number] REPORT STATUS: Signed DATE:10/30/22 TIME: 1643 PATIENT: JADE GOODWIN UNIT #: [id number] ROOM/BED: AGE: 36 SEX: M PCP PHYS: No Primary or Family Physician SERVICE DT: AUTHOR: Kervin Quinn MD * ALL edits or amendments must be made on the electronic/computer document * HPI-URI/Cough/Cold Free Text HPI Notes Free Text HPI Notes Patient states that since yesterday's, felt like his lungs were really tight and noticed wheezing. Patient states has chronic bronchitis and had asthma since childhood. Patient states that he had a breathing treatment last night, but nothing today. Patient states that he is having subjective fevers as well. Patient denies any major nasal congestion or sore throat. Denies any pleuritic- like chest pain. States dad yesterday from an infection in his lungs, but was not sure what kind of infection it was. Patient states his dad also suffer from terminal cancer General Initial Greet Date/Time 10/30/22 1643 Presentation Chief Complaint Cough, non-productive Hx Obtained From Patient Onset Occurred Yesterday Review of Systems ROS Statements All systems rev neg except as marked. Focused Review of Systems Constitutional Reports: Fever. Respiratory Reports: Wheezing. Past Medical History - Adult Stated Complaint cough Allergies Coded Allergies: No Known Allergies (09/21/21) Home Medications Active Scripts IBUPROFEN (ADVIL) 400 MG PO Q6H PRN PRN PAIN IBUPROFEN (ADVIL) 400 MG PO Q6H PRN PRN PAIN #20 TABS Prov: 01/01/21 AZITHROMYCIN (ZITHROMAX) 500 MG PO DAILY AZITHROMYCIN (ZITHROMAX) 500 MG PO DAILY #3 TABS Prov: 09/21/21 ONDANSETRON ODT (ZOFRAN ODT) 4 MG PO Q6H PRN PRN NAUSEA/VOMITING ONDANSETRON ODT (ZOFRAN ODT) 4 MG PO Q6H PRN PRN NAUSEA/VOMITING #15 TABS Prov: 09/21/21 IBUPROFEN (MOTRIN) 600 MG PO Q6H PRN PRN PAIN/FEVER IBUPROFEN (MOTRIN) 600 MG PO Q6H PRN PRN PAIN/FEVER #30 TABS Prov: 09/21/21 ACETAMINOPHEN (TYLENOL) 650 MG PO Q6H PRN PRN PAIN/FEVER ACETAMINOPHEN (TYLENOL) 650 MG PO Q6H PRN PRN PAIN/FEVER #40 TABS Prov: 09/21/21 KETOROLAC (TORADOL) 10 MG PO Q6H PRN PRN PAIN KETOROLAC (TORADOL) 10 MG PO Q6H PRN PRN PAIN #20 TABS Prov: 07/12/20 CYCLOBENZAPRINE (FLEXERIL) 10 MG PO Q8H PRN PRN MUSCLE SPASMS/PAIN CYCLOBENZAPRINE (FLEXERIL) 10 MG PO Q8H PRN PRN MUSCLE SPASMS/PAIN #15 TABS Prov: 07/12/20 methylPREDNISolone (MEDROL 4 MG DOSEPAK) 4 MG PO ASDIR methylPREDNISolone (MEDROL 4 MG DOSEPAK) 4 MG PO ASDIR #1 PACKET Prov: 07/12/20 IBUPROFEN (MOTRIN) 800 MG PO TID PRN PRN PAIN IBUPROFEN (MOTRIN) 800 MG PO TID PRN PRN PAIN #30 TABS Prov: 01/16/21 tiZANidine (ZANAFLEX) 4 MG PO Q8H PRN PRN MUSCLE SPASMS tiZANidine (ZANAFLEX) 4 MG PO Q8H PRN PRN MUSCLE SPASMS #30 TABS Prov: 01/16/21 Reported Medications ESOMEPRAZOLE MAG DR (NexIUM) 20 MG PO DAILY Calculated Suicide Risk (nurs) No risk Past Medical History: Reports: Asthma (NOW INFORMED AT D/C CONSULT), GERD/gastritis, Dyslipidemia. Denies: Coronary artery disease, Diabetes mellitus, Hypertension. Additional Medical History Allergic rhinitis. Past Surgical History: Denies: Abdominal surgery, Appendectomy. Family History: Reports: Cancer, Diabetes, Heart disease, Hypertension. Alcohol Use Denies EtOH use Drug Use Denies recreational drugs Smoking status for patients 13 years old or older: Never Smoker Physical Exam Vital Signs Vital Signs First Documented: Result Date Time Pulse Ox 94 10/30 1614 B/P 149/88 10/30 1614 B/P Mean 108 10/30 1614 O2 Delivery Room air 10/30 161 Temp 37.2 10/30 161 Pulse 114 10/30 1614 Resp 24 10/30 1614 Last Documented: Result Date Time Pulse Ox 94 10/30 1614 B/P 149/88 10/30 1614 B/P Mean 108 10/30 1614 O2 Delivery Room air 10/30 161 Temp 37.2 10/30 1614 Pulse 114 10/30 1614 Resp 24 10/30 1614 Review of Vital Signs Reviewed Focused PE General/Const General/Const Awake, Alert, No acute distress, Well appearing, Well developed , Well hydrated, Well nourished, Cooperative, Not toxic appearing Ears/Nose/Throat Ears/Nose/Throat Atraumatic, Airway patent, Mucous membranes moist, Pharynx NL, No peritonsillar abscess, No pooling of secretions, No trismus, Tympanic membs NL, Ext aud canal NL, Mastoid area NL, Nose exam NL, No sinus tenderness, No facial swelling, Gums/dentition NL Resp/Chest Respiratory/Chest Atraumatic, Breath sounds NL, Breath sounds = bilat, No respiratory distress, No rales, No rhonchi, No retractions, No stridor, No chest tenderness, No chest wall deformity, No crepitus Wheezing/Retractions Wheezing inspiratory. Cardiovascular Cardiovascular Regular rhythm, Heart sounds NL, No gallop, No murmurs, No rubs, Cap refill not delayed, Peripheral circulation NL, Pulses = bilaterally, No gross BP differential Heart Rate/Rhythm Tachycardia. Interpretation Diagnostics Lab Results Interpretation Results Laboratory Tests: 10/30 1624 Serology SARS-CoV-2 Ag (Rapid) (NEGATIVE) Presumed Negative Microbiology: Date/Time Procedure - Status Source Growth 10/30 1624 Influenza Virus Type B Antigen - COMP NASOPHARG 10/30 1624 Influenza Virus Type A Antigen - COMP NASOPHARG Recent Impressions: RADIOLOGY - XR CHEST 1 V 10/30 1639 Report Impression - Status: SIGNED Entered: 10/30/2022 1646 IMPRESSION: No radiographic evidence of acute cardiopulmonary disease. Impression By: [email or web address] Sendy Fitzgerald MD RADIOLOGY - XR CHEST 2 V 10/30 1658 Report Impression - Status: SIGNED Entered: 10/30/2022 1711 IMPRESSION: No acute cardiopulmonary process seen. Impression By: [email or web address] - Scottie Du MD Lab Imaging Statement Laboratory radiographic studies reviewed and considered in the medical decision-making. Re-Evaluation MDM ED Course Medication(s) Ordered Medication(s) Ordered: Anti-Infective Agents Sig/Merlin Start time Last Medication Dose Route Stop Time Status Admin Azithromycin 500 MG X1ED STA 10/30 1717 DC PO 10/30 1718 Autonomic Drugs Sig/Merlin Start time Last Medication Dose Route Stop Time Status Admin Albuterol Sulfate 2.5 MG X1ED STA 10/30 1633 DC 10/30 INH 10/30 1634 1637 Eye, Ear, Nose And Throat (Een Sig/Merlin Start time Last Medication Dose Route Stop Time Status Admin Ipratropium [place] 0.5 MG X1ED STA 10/30 1633 DC 10/30 INH 10/30 1634 1637 Hormones And Synthetic Substit Sig/Merlin Start time Last Medication Dose Route Stop Time Status Admin Prednisone 60 MG X1ED STA 10/30 1716 DC PO 10/30 1717 Patient Discharge Departure Vital Signs/Condition Vital Signs First Documented: Result Date Time Pulse Ox 94 10/30 1614 B/P 149/88 10/30 1614 B/P Mean 108 10/30 1614 O2 Delivery Room air 10/30 1614 Temp 37.2 10/30 1614 Pulse 114 10/30 1614 Resp 24 10/30 1614 Last Documented: Result Date Time Pulse Ox 94 10/30 1614 B/P 149/88 10/30 1614 B/P Mean 108 10/30 1614 O2 Delivery Room air 10/30 1614 Temp 37.2 10/30 1614 Pulse 114 10/30 1614 Resp 24 10/30 161 All vital signs available at the time of this entry have been reviewed. Condition Improved Clinical Impression Clinical Impression Primary Impression: Bronchitis Secondary Impressions: Wheezing Time of Impression 1717 Disposition Decision Discharge )( Discharged to Home Yes )( Time 1717 )( Date 10/30/22 Discharge/Care Plan (Auto) Prescriptions Current Visit Scripts AZITHROMYCIN (ZITHROMAX) 250 MG PO DAILY AZITHROMYCIN (ZITHROMAX) 250 MG PO DAILY #4 TABS predniSONE 40 MG PO DAILY 5 Days #10 TABS UNTIL FINISHED (5 DAYS) ALBUTEROL (ALBUTEROL 2.5 MG/3 ML (75mL)) 2.5 MG NEB RTQ4H PRN PRN WHEEZING ALBUTEROL (ALBUTEROL 2.5 MG/3 ML (75mL)) 2.5 MG NEB RTQ4H PRN PRN WHEEZING #60 ML Ref 3 Patient Instructions ED URI, Viral W/ Wheezing (Adult) Additional Instructions Tylenol and/or Motrin as needed for pain or fevers. Steam at 2-3 times daily as directed. Please make sure your house is not too cold or have ceiling fan circulating as it does tend to dry out the air. at 1721 RPT #:[id number] END OF REPORT [facility] 2021-09-21 01:03:00 [facility] ([facility]) EMERGENCY PROVIDER REPORT REPORT#:[id number] REPORT STATUS: Signed DATE:09/21/21 TIME: 010 PATIENT: JADE GOODWIN UNIT #: [id number] ROOM/BED: AGE: 35 SEX: M PCP PHYS: No Primary or Family Physician SERVICE AUTHOR: Soy Donnelly MD * ALL edits or amendments must be made on the electronic/computer document * HPI-Nausea/Vomit/Diarrhea General Confirmed Patient Yes Patient Type New patient Initial Greet Date/Time 09/21/21 000 Presentation Chief Complaint Nausea, Vomiting, Diarrhea, Abd pain, cramping Hx Obtained From Patient Onset Occurred Yesterday Symptom Duration Since onset Progression since Onset Gradually worsening Context of Onset No sick contacts Vomiting Vomiting 7-10 episodes Diarrhea Diarrhea 7-10 episodes Location Abdomen upper, Epigastric Quality Cramping Radiation No: Does not radiate. Severity: Onset Mild Severity: Current Moderate Associated with Reports: Abdominal pain, Fever. Denies: Blood in stool, Constipation, Shaking chills, UTI symptoms. Associated Other Pt denies other symptoms Exacerbated by Food, Liquids Relieved by Nothing Free Text HPI Notes Free Text HPI Notes Patient is a 35 years old male came to ER complaining of nausea ,vomiting , diarrhea and abdominal pain. symptoms started yesterday. Patient vomited x8. Patient had 8 bowel movement watery stools ,no blood in stool. Patient arrived to ER febrile and tachycardic. Patient is also complaining of abdominal pain generalized worse in upper hemiabdomen. Cramping. Moderate intensity. patient denies upper respiratory symptoms .no runny nose. no stuffy nose. No cough. Patient has history of allergic rhinitis and hyperlipidemia. Pain is worse with palpation of the abdomen. Risk-Nausea/Vomit/Diarrhea Risk Stratification Opioid Risk (Male) Opioid Risk (Male) Response Value Age 16-45 Yes (1) 1 Hx Preadolescent Sex Abuse No (0) 0 Hx Depression No (0) 0 Hx ADD/OCD/Bipolar/Schizophrenia No (0) 0 Pt Hx Alcohol Abuse No (0) 0 Pt Hx Illegal Drug Abuse No (0) 0 Pt Hx Prescription Drug Abuse No (0) 0 Fam Hx Alcohol Abuse No (0) 0 Fam Hx Illegal Drug Abuse No (0) 0 Fam Hx Prescription Drug Abuse No (0) 0 Total 1 Review of Systems ROS Statements All systems rev neg except as marked. Free Text ROS Notes Free Text ROS Notes All systems reviewed and negative except as marked CONSTITUTIONAL: fever, no chills, malaise, no Fatigue, generalized weakness EYES: No discharge, No redness, no swelling, no blurry vision EAR/NOSE AND THROAT: No nasal congestion, No sore throat, no earache, no nasal bleeding, no sinus problems RESPIRATORY: No cough, no phlegm, no dyspnea, no pleuritic pain, no dyspnea on exertion. no wheezing. no hemoptysis. CARDIOVASCULAR: No chest pain, no dyspnea on exertion, no dyspnea, no edema, no palpitation, no syncope, no orthopnea, no cyanosis GASTROINTESTINAL: nausea, vomiting, no diarrhea, no constipation, abdominal pain, no melena, no hematochezia, no hematemesis GENITOURINARY: No dysuria, no frequency, no flank pain, no hematuria. NEUROLOGICAL: No change of mental status, no loss of consciousness. No confusion , no focal weakness, no dizziness, no headache, no vision changes, no seizure, no syncope, no slurred speech, no vertigo, no paresis, or paralysis upper or lower extremities MUSKULOSKELETAL: No extremity pain, no extremity swelling, no joint pain, no joint swelling, no lumbar pain, no neck pain, no thoracic pain. SKIN: No erythema, no rash, no laceration, no bruising PSYCHIATRY: No anxiety, no depression, no suicidal, no hallucination, no homicidal Past Medical History - Adult Stated Complaint DIARRHEA/ N/V Allergies Coded Allergies: No Known Allergies (09/21/21) Home Medications Active Scripts IBUPROFEN (ADVIL) 400 MG PO Q6H PRN PRN PAIN IBUPROFEN (ADVIL) 400 MG PO Q6H PRN PRN PAIN #20 TABS Prov: 01/01/21 KETOROLAC (TORADOL) 10 MG PO Q6H PRN PRN PAIN KETOROLAC (TORADOL) 10 MG PO Q6H PRN PRN PAIN #20 TABS Prov: 07/12/20 CYCLOBENZAPRINE (FLEXERIL) 10 MG PO Q8H PRN PRN MUSCLE SPASMS/PAIN CYCLOBENZAPRINE (FLEXERIL) 10 MG PO Q8H PRN PRN MUSCLE SPASMS/PAIN #15 TABS Prov: 07/12/20 methylPREDNISolone (MEDROL 4 MG DOSEPAK) 4 MG PO ASDIR methylPREDNISolone (MEDROL 4 MG DOSEPAK) 4 MG PO ASDIR #1 PACKET Prov: 07/12/20 IBUPROFEN (MOTRIN) 800 MG PO TID PRN PRN PAIN IBUPROFEN (MOTRIN) 800 MG PO TID PRN PRN PAIN #30 TABS Prov: 01/16/21 tiZANidine (ZANAFLEX) 4 MG PO Q8H PRN PRN MUSCLE SPASMS tiZANidine (ZANAFLEX) 4 MG PO Q8H PRN PRN MUSCLE SPASMS #30 TABS Prov: 01/16/21 Reported Medications ESOMEPRAZOLE MAG DR (NexIUM) 20 MG PO DAILY Calculated Suicide Risk (nurs) No risk Past Medical History: Reports: Asthma (NOW INFORMED AT D/C CONSULT), GERD/gastritis, Dyslipidemia. Denies: Coronary artery disease, Diabetes mellitus, Hypertension. Additional Medical History Allergic rhinitis. Past Surgical History: Denies: Abdominal surgery, Appendectomy. Family History: Reports: Cancer, Diabetes, Heart disease, Hypertension. Alcohol Use Denies EtOH use Drug Use Denies recreational drugs Smoking status: Smoking status for patients 13 years old or older: Never Smoker Physical Exam Vital Signs Vital Signs First Documented: Result Date Time Pulse Ox 100 09/21 2 B/P 120/82 09/21 2 B/P Mean 94 09/21 2 O2 Delivery Room air 09/21 2 Temp 100.4 09/21 2 Pulse 116 09/21 0003 Resp 18 09/21 0003 Last Documented: Result Date Time Pulse Ox 100 09/213 B/P 125/81 09/21 202 B/P Mean 95 09/213 O2 Delivery Room air 09/21 202 Temp 99.8 09/21 202 Pulse 107 09/21 0203 Resp 18 09/21 0203 Review of Vital Signs Reviewed Focused PE General/Const General/Const Awake, Alert, Well appearing, Well developed, Well nourished, Cooperative Abdomen/GI Abdomen/GI McBurney's non-tender, No rebound, BS normoactive, No distention, No hernia, No palpable mass Text/Dict Notes Tender to palpation upper hemiabdomen, guarding, no rebound Free Text PE Notes Free Text PE Notes GENERAL: Awake, alert, cooperative, febrile HEAD: Normocephalic, atraumatic EYES: PERRL, no nystagmus, no photophobia, conjunctiva normal, no scleral icterus, cornea clear EAR/NOSE/ THROAT: airway patent, oral mucosa moist, tympanic membrane normal, external canal normal, mastoid area normal, no sinus tenderness, pharynx no erythematous NECK: Atraumatic, Supple, no meningeal signs, full range of motion, no adenopathy, no swelling, no tender, no JVD, RESPIRATORY /CHEST: Atraumatic, Breath sound normal bilateral, no respiratory distress, no rales, no crackles, no rhonchi, no wheezing, no retractions CARDIOVASCUALAR: Regular rhythm, tachycardic , normal heart sounds, no murmurs, no gallops, capillary refill no delayed. ABDOMEN/GASTROINTESTINAL: Tender to palpation, McBurney s sign negative, Castle s sign negative, guarding, no rebound, no abdominal distension, no masses palpated. SKIN: color normal, no redness, no rash PSYCHIATRIC: Normal affect, no depression, no suicidal, no homicidal, no hallucination NEUROLOGIC: Oriented x3, no dysarthria, no motor deficits, no sensory deficit. Cranial nerves II XII grossly intact. Strength upper and lower extremity 5/5 BACK: Atraumatic, Inspection normal, painless range of motion, no tender, no midline vertebral tenderness, no CVA tenderness, no paraspinal tenderness, no spasm. LOWER EXTREMITIES: Atraumatic, Inspection normal, Full range of motion, no swelling, no tender to palpation, Homans s sign negative bilateral, Interpretation Diagnostics Lab Results Interpretation Results Laboratory Tests 09/21/21 0018: [Embedded Image Not Available] Laboratory Tests: 09/21 09/21 09/21 0103 0035 0020 Coagulation PT (8.7 - 11.9 SECONDS) 9.4 INR 0.9 APTT (22.8 - 34.4 seconds) 19.7 L Serology SARS-CoV-2 Ag (Rapid) (NEGATIVE) Presumed Negative Toxicology Ketones (NEGATIVE mg/dl) NEGATIVE Urines Urine Color (YELLOW) DK YELLOW Urine Appearance (CLEAR) CLEAR Urine pH (4.6 - 8.0) 5.5 Ur Specific [place] (1.001 - 1.035) >= 1.030 Urine Protein (NEGATIVE mg/dl) NEGATIVE Urine Glucose (UA) (NORMAL mg/dl) NEGATIVE Urine Blood (NEGATIVE /UL) NEGATIVE Urine Nitrite (NEGATIVE) NEGATIVE Urine Bilirubin (NEGATIVE mg/dl) NEGATIVE Urine Urobilinogen (NORMAL mg/dl) 0.2 Ur Leukocyte Esterase (NEGATIVE /UL) NEGATIVE Urine Comment CLN CATCH 09/21 09/21 0018 0018 Chemistry Sodium (136 - 145 mmol/L) 139 Potassium (3.5 - 5.1 mmol/L) 3.7 Chloride (98 - 107 mmol/L) 101 Carbon Dioxide (21 - 32 mmol/L) 29 BUN (7 - 18 mg/dL) 17 Creatinine (0.70 - 1.30 mg/dl) 1.34 H Estimated GFR (MDRD) (>=60) 59.98 L Glucose (70 - 100 mg/dL) 137 H Lactic Acid (0.4 - 2.0 mmol/l) 1.8 Calcium (8.5 - 10.1 mg/dL) 8.6 Total Bilirubin (0.2 - 1.0 mg/dL) 1.2 H AST (15 - 37 U/L) 25 ALT (12 - 78 U/L) 43 Alkaline Phosphatase (45 - 117 U/L) 75 Total Protein (6.4 - 8.2 g/dl) 7.5 Albumin (3.4 - 5.0 g/dl) 4.1 Hematology WBC (4.5 - 11.0 X10(3)) 19.5 H RBC (4.3 - 5.9 X10(6)) 5.23 Hgb (13.5 - 18.0 g/dL) 17.3 Hct (42.0 - 52.0 %) 49.6 MCV (78 - 100 fL) 94.8 MCH (26.0 - 34.0 pg) 33.1 MCHC (30.0 - 37.0 g/dl) 34.9 RDW (11.5 - 14.5 %) 11.8 Plt Count (150 - 350 X10(3)) 241 MPV (8.7 - 11.4 fl) 9.6 Neut % (Auto) (36.0 - 66.0 %) 90.9 H Lymph % (Auto) (16 - 50 %) 3.2 L [place] % (Auto) (0.0 - 13.0 %) 4.7 Eos % (Auto) (0.0 - 4.5 %) 0.8 Baso % (Auto) (0.0 - 1.5 %) 0.2 Immature Gran # (Auto) (0.00 - 0.03 X10(3)uL) 0.03 Absolute Neuts (auto) (1.7 - 7.7 X10(3)) 17.7 H Absolute Lymphs (auto) (1.0 - 4.8 X10(3)) 0.6 L Absolute Monos (auto) (0.0 - 0.89 X10(3)) 0.9 H Absolute Eos (auto) (0.0 - 0.6 X10(3)) 0.2 Absolute Basos (auto) (0.0 - 0.2 X10(3)) 0.0 Immature Gran % (0.0 - 2.0 %) 0.2 RBC Morphology (NORMAL) NO Microbiology: Date/Time Procedure - Status Source Growth 09/22 19 Influenza Virus Type B Antigen - COMP NASOPHARG 09/22 19 Influenza Virus Type A Antigen - COMP NASOPHARG 09/21 16 Blood Culture - RECD BLOOD 09/21 16 Blood Culture - RECD BLOOD Recent Impressions: RADIOLOGY - XR CHEST 1 V 09/22 27 Report Impression - Status: SIGNED Entered: 09/21/2021 0032 IMPRESSION: Normal chest x-ray. Impression By: Frank ESCUDERO M.D. Lab Statement Laboratory studies reviewed and considered in the medical decision-making. Imaging Statement Radiographic studies reviewed and considered in the medical decision-making. ECG #1 Interpretation Date 09/21/21 Interpreted by ED physician NL ECG Interpretation Normal sinus rhythm, No acute ischemic changes, No STEMI, Normal QRS, Normal ST waves, Normal T waves, Normal axis, Normal intervals, Adequate tracing Rate 113 Rhythm Tachycardia Re-Evaluation MDM Free Text MDM Notes Free Text MDM Notes Patient is feeling better. Patient declined admission Re-Evaluation/Progress #1 Re-Eval Status Improved ED Course Medication(s) Ordered Medication(s) Ordered: Anti-Infective Agents Sig/Merlin Start time Last Medication Dose Route Stop Time Status Admin Ceftriaxone Sodium 1,000 MG X1ED STA 09/21 0016 DC 09/21 Sodium Chloride 10 ML IV 09/21 0018 0025 Metronidazole HCl 100 ML X1ED STA 09/21 0015 DCr 09/21 IV 09/21 0114 0104 Central Nervous System Agents Sig/Merlin Start time Last Medication Dose Route Stop Time Status Admin Ketorolac 15 MG X1ED STA 09/21 0021 DC 09/21 Tromethamine IV 09/21 0022 0026 Acetaminophen 1,000 MG X1ED STA 09/21 0014 DC PO 09/21 0015 Electrolytic, Caloric, And Kassie Sig/Merlin Start time Last Medication Dose Route Stop Time Status Admin Sodium Chloride 2,670 ML X1ED STA 09/21 0014 DC 09/21 IV 09/21 0015 0025 Patient Discharge Departure Vital Signs/Condition Vital Signs First Documented: Result Date Time Pulse Ox 100 09/21 0003 B/P 120/82 09/21 0003 B/P Mean 94 09/21 0003 O2 Delivery Room air 09/21 0003 Temp 100.4 09/21 0003 Pulse 116 09/21 0003 Resp 18 09/21 0003 Last Documented: Result Date Time Pulse Ox 100 09/21 0203 B/P 125/81 09/21 0203 B/P Mean 95 09/21 0203 O2 Delivery Room air 09/21 0203 Temp 99.8 09/21 0203 Pulse 107 09/21 0203 Resp 18 09/21 0203 All vital signs available at the time of this entry have been reviewed. Condition Stable Clinical Impression Clinical Impression Primary Impression: Gastroenteritis Secondary Impressions: Dehydration, Fever, Hyperlipidemia, Leukocytosis Disposition Decision Discharge )( Discharged to Home Yes )( Time 020 )( Date 09/21/21 Discharge/Care Plan Counseled Regarding Diagnosis, Lab results, Prescriptions, Need for follow-up, When to return to ED (Auto) Prescriptions Current Visit Scripts AZITHROMYCIN (ZITHROMAX) 500 MG PO DAILY AZITHROMYCIN (ZITHROMAX) 500 MG PO DAILY #3 TABS ONDANSETRON ODT (ZOFRAN ODT) 4 MG PO Q6H PRN PRN NAUSEA/VOMITING ONDANSETRON ODT (ZOFRAN ODT) 4 MG PO Q6H PRN PRN NAUSEA/VOMITING #15 TABS IBUPROFEN (MOTRIN) 600 MG PO Q6H PRN PRN PAIN/FEVER IBUPROFEN (MOTRIN) 600 MG PO Q6H PRN PRN PAIN/FEVER #30 TABS ACETAMINOPHEN (TYLENOL) 650 MG PO Q6H PRN PRN PAIN/FEVER ACETAMINOPHEN (TYLENOL) 650 MG PO Q6H PRN PRN PAIN/FEVER #40 TABS Prescriptions Reviewed Risks, Benefits Patient Instructions ED Dehydration (Adult), ED Fever Control (Adult), ED Gastroenteritis Bacterial, ED Vomiting (Adult), Vomiting Diarrhea Diet Adult Additional Instructions Discharge home Follow-up with primary care provider tomorrow Back to ER with worsening symptom Discharge Note I have spoken with the patient and/or caregivers. I have explained the patient's condition, diagnoses and treatment plan based on the information available to me at this time. I have answered the patient's and/or caregiver's questions and addressed any concerns. The patient and/or caregivers have as good an understanding of the patient's diagnosis, condition and treatment plan as can be expected at this point. The vital signs have been stable. The patient's condition is stable and appropriate for discharge from the emergency department. The patient will pursue further outpatient evaluation with the primary care physician or other designated or consulting physician as outlined in the discharge instructions. The patient and/or caregivers are agreeable to this plan of care and follow-up instructions have been explained in detail. The patient and/or caregivers have received these instructions in written format and have expressed an understanding of the discharge instructions. The patient and/or caregivers are aware that any significant change in condition or worsening of symptoms should prompt an immediate return to this or the closest emergency department or a call to 911. at 0911 RPT #:[id number] END OF REPORT [facility] 2021-01-16 04:00:00 [facility] ([facility]) EMERGENCY PROVIDER REPORT REPORT#:[id number] REPORT STATUS: Signed DATE:01/16/21 TIME: 0400 PATIENT: JADE GOODWIN UNIT #: [id number] ROOM/BED: AGE: 35 SEX: M PCP PHYS: No Primary or Family Physician SERVICE DT: AUTHOR: Dipesh Durán MD * ALL edits or amendments must be made on the electronic/computer document * HPI-General Illness Free Text HPI Notes Free Text HPI Notes Patient is a 35-year-old male who is coming in complaining of lower back pain he says that he has a history of a herniated disc and scoliosis about a week ago he started lifting a lot of heavy things at work and he has been taking over-the- counter medications without relief he is coming in with numbing and tingling radiating down his extremity on the left no urinary incontinence no fecal incontinence General Initial Greet Date/Time 01/16/21 0341 Presentation Chief Complaint Back pain Review of Systems ROS Statements All systems rev neg except as marked. (BACK PAIN) Past Medical History - Adult Stated Complaint MUSCLE PAIN Allergies Coded Allergies: No Known Allergies (01/30/20) Home Medications Active Scripts IBUPROFEN (ADVIL) 400 MG PO Q6H PRN PRN PAIN IBUPROFEN (ADVIL) 400 MG PO Q6H PRN PRN PAIN #20 TABS Prov: 01/01/21 KETOROLAC (TORADOL) 10 MG PO Q6H PRN PRN PAIN KETOROLAC (TORADOL) 10 MG PO Q6H PRN PRN PAIN #20 TABS Prov: 07/12/20 CYCLOBENZAPRINE (FLEXERIL) 10 MG PO Q8H PRN PRN MUSCLE SPASMS/PAIN CYCLOBENZAPRINE (FLEXERIL) 10 MG PO Q8H PRN PRN MUSCLE SPASMS/PAIN #15 TABS Prov: 07/12/20 methylPREDNISolone (MEDROL 4 MG DOSEPAK) 4 MG PO ASDIR methylPREDNISolone (MEDROL 4 MG DOSEPAK) 4 MG PO ASDIR #1 PACKET Prov: 07/12/20 Reported Medications ESOMEPRAZOLE MAG DR (NexIUM) 20 MG PO DAILY Calculated Suicide Risk (nurs) No risk Past Medical History: Reports: Asthma (NOW INFORMED AT D/C CONSULT), GERD/gastritis. Denies: Coronary artery disease, Diabetes mellitus, Hypertension. Past Surgical History: Denies: Abdominal surgery, Appendectomy. Smoking status: Smoking status for patients 13 years old or older: Never Smoker Physical Exam Vital Signs Vital Signs First Documented: Result Date Time Pulse Ox 97 01/16 034 B/P 143/102 01/16 0343 B/P Mean 115 01/16 0343 O2 Delivery Room air 01/16 343 Temp 36.7 01/16 034 Pulse 86 01/16 0343 Resp 01/16 Last Documented: Result Date Time Pulse Ox 97 01/163 B/P 143/102 01/16 0343 B/P Mean 115 01/163 O2 Delivery Room air 01/16 343 Temp 36.7 01/16 034 Pulse 86 01/16 0343 Resp 01/16 Review of Vital Signs Reviewed Basic Physical Exam Basic PE GEN: Well appearing/NAD, HEAD: Atraumatic/NC, EYES: PERRL, conj clear, ENT: Membranes moist, NECK: Supple, RESP: No resp distress, CV: Reg rate rhythm, ABD: Soft/non-tender, SKIN: No rashes, warm/dry, NEURO: alert oriented , NEURO: gross movement NL, PSYCH: NL thought content Images Back Torso - Back [Embedded Image Not Available] 1) L SPINE TENDERNESS, NO VERTEBRAL STEP OFF 2) PARASPINAL TENDERNESS Free Text PE Notes Free Text PE Notes On examining his back he has some tenderness in the L-spine but no vertebral step-offs and some paraspinal tenderness on the left Re-Evaluation MDM ED Course Medication(s) Ordered Medication(s) Ordered: Central Nervous System Agents Sig/Merlin Start time Last Medication Dose Route Stop Time Status Admin Ketorolac 60 MG X1ED STA 01/160 DC Tromethamine IM 01/16 401 Eye, Ear, Nose And Throat (Een Sig/Merlin Start time Last Medication Dose Route Stop Time Status Admin Dexamethasone Sodium 8 MG X1ED STA 01/160 DC Phosphate IM 01/16 401 Patient Discharge Departure Vital Signs/Condition Vital Signs First Documented: Result Date Time Pulse Ox 97 01/16 0343 B/P 143/102 / 0343 B/P Mean 115 01/16 0343 O2 Delivery Room air 01/16 0343 Temp 36.7 01/16 0343 Pulse 86 / 0343 Resp 16 01/16 0343 Last Documented: Result Date Time Pulse Ox 97 01/16 0343 B/P 143/102 01/16 0343 B/P Mean 115 01/16 0343 O2 Delivery Room air 01/16 0343 Temp 36.7 01/16 0343 Pulse 86 / 0343 Resp 16 01/16 0343 All vital signs available at the time of this entry have been reviewed. Condition Stable Clinical Impression Clinical Impression Primary Impression: Lower back pain Time of Impression 402 Disposition Decision Discharge )( Discharged to Home Yes )( Time 040 )( Date 01/16/21 Discharge/Care Plan (Auto) Prescriptions Current Visit Scripts IBUPROFEN (MOTRIN) 800 MG PO TID PRN PRN PAIN IBUPROFEN (MOTRIN) 800 MG PO TID PRN PRN PAIN #30 TABS tiZANidine (ZANAFLEX) 4 MG PO Q8H PRN PRN MUSCLE SPASMS tiZANidine (ZANAFLEX) 4 MG PO Q8H PRN PRN MUSCLE SPASMS #30 TABS Patient Instructions ED Back Exercises, Lumbar Additional Instructions Thank you for allowing us to participate in your care today, please follow-up with your primary care doctor in 1 to 2 days, take your medication as directed at 0404 RPT #:[id number] END OF REPORT [facility] 2021-01-01 21:28:00 [facility] ([facility]) EMERGENCY PROVIDER REPORT REPORT#:[id number] REPORT STATUS: Signed DATE:01/01/21 TIME: 2127 PATIENT: JADE GOODWIN UNIT #: [id number] ROOM/BED: AGE: 35 SEX: M PCP PHYS: No Primary or Family Physician SERVICE AUTHOR: Serina Robbins * ALL edits or amendments must be made on the electronic/computer document * HPI-Extremity Prob Upper General Initial Greet Date/Time 01/01/212124 Presentation Chief Complaint Elbow problem L Hx Obtained From Patient Onset Occurred Sudden Symptom Duration Since onset Progression since Onset Constant Context of Onset NO TRAUMA Caused by No trauma by history Context: Occurred at NO INJURY Location Elbow L Quality NO PAIN Severity: Onset Pain level 0 out of 10 Severity: Current Pain level 0 out of 10 Associated with Reports: Joint swelling. Denies: Fever, Neuro symptoms pre-arriv, Numb extremities, Swelling, Syncope. Associated Other Pt denies other symptoms Exacerbated by Nothing Relieved by NOTHING TRIED Free Text HPI Notes Free Text HPI Notes PT NOTED A SMALL BALL ON THE LEFT OLECRANON AREA. HE DENIES TRAUMA, PAIN AND SWELLING TO THE AREA. HE HAS FULL ROM OF HIS ELBOW. HE DENIES FEVER, CHILL. HIS ELBOW IS NOT RED NOR TENDER. HE HAS NO SIMILAR EPISODE Review of Systems ROS Statements All systems rev neg except as marked. Basic Review of Systems Basic ROS EYES: No redness, ENT: No sore throat, RESP: No SOB, CV: No chest pain , GI: No abd pain/vomiting, : No dysuria/frequency, HEM: No bleeding/bruising, PSYCH: NL thought content Focused Review of Systems Constitutional Denies: Chills, Fatigue, Fever. Musculoskeletal Reports: Joint swelling. Denies: Joint pain. Skin Denies: Abrasion, Abscess. Neurologic Denies: Change LOC, Confusion. Past Medical History - Adult Stated Complaint INJURY-ACCIDENT Allergies Coded Allergies: No Known Allergies (01/30/20) Home Medications Active Scripts KETOROLAC (TORADOL) 10 MG PO Q6H PRN PRN PAIN KETOROLAC (TORADOL) 10 MG PO Q6H PRN PRN PAIN #20 TABS Prov: 07/12/20 CYCLOBENZAPRINE (FLEXERIL) 10 MG PO Q8H PRN PRN MUSCLE SPASMS/PAIN CYCLOBENZAPRINE (FLEXERIL) 10 MG PO Q8H PRN PRN MUSCLE SPASMS/PAIN #15 TABS Prov: 07/12/20 methylPREDNISolone (MEDROL 4 MG DOSEPAK) 4 MG PO ASDIR methylPREDNISolone (MEDROL 4 MG DOSEPAK) 4 MG PO ASDIR #1 PACKET Prov: 07/12/20 Reported Medications ESOMEPRAZOLE MAG DR (NexIUM) 20 MG PO DAILY Past Medical History: Reports: Asthma (NOW INFORMED AT D/C CONSULT), GERD/gastritis. Denies: Coronary artery disease, Diabetes mellitus, Hypertension. Past Surgical History: Denies: Abdominal surgery, Appendectomy. Physical Exam Vital Signs Vital Signs First Documented: Result Date Time Pulse Ox 99 01/02 2128 B/P 139/92 01/02 2128 B/P Mean 107 01/02 2128 O2 Delivery Room air 01/02 2128 Temp 36.7 01/02 2128 Pulse 64 01/02 2128 Resp 01/01 Last Documented: Result Date Time Pulse Ox 99 01/02 2128 B/P 139/92 01/02 2128 B/P Mean 107 01/02 2128 O2 Delivery Room air 01/02 2128 Temp 36.7 01/02 2128 Pulse 64 01/02 2128 Resp 18 01/02 2128 Review of Vital Signs Reviewed Basic Physical Exam Basic PE GEN: Well appearing/NAD, HEAD: Atraumatic/NC, EYES: PERRL, conj clear, ENT: Membranes moist, NECK: Supple, RESP: No resp distress, CV: Reg rate rhythm, ABD: Soft/non-tender, EXT: No gross abnormality, SKIN: No rashes, warm/ dry, NEURO: alert oriented, NEURO: gross movement NL, PSYCH: NL thought content Focused PE General/Const General/Const Awake, Alert, Well appearing MS Neck Neck Supple, Full range of motion, No swelling, Non-tender Resp/Chest Respiratory/Chest Breath sounds NL, Breath sounds = bilat, No respiratory distress, No rales, No rhonchi, No wheezing Cardiovascular Cardiovascular Heart rate NL, Regular rhythm, Heart sounds NL, Peripheral circulation NL MS Upper Extrem Upper Extremity/MS 3CM DIAMETER CYSTIC MASS ON THE LEFT ELBOW, THERE IS NO REDNESS NON TENDER, FULL ROM MS Wrist/Hand Wrist/Hand Atraumatic, Inspection NL, Full range of motion, No swelling, No erythema, Non-tender, No deformity, Neurologic intact, Vascular intact, No compartment syndrome, No clubbing/cyanosis Skin Skin Color NL, Warm, Dry, Intact, Turgor NL, No swelling Neurologic Neurologic Oriented X3, Speech NL, No motor deficits, No sensory deficits Re-Evaluation MDM Re-Evaluation/Progress Re-Evaluation/Progress Time of Re-Eval 2145 Re-Eval Status Improved ED Course Medication(s) Ordered Medication(s) Ordered: Central Nervous System Agents Sig/Merlin Start time Last Medication Dose Route Stop Time Status Admin Ibuprofen 600 MG X1ED STA 01/01 2205 DC 01/01 PO 01/01 Ibuprofen 400 MG X1ED STA 01/01 2143 DC PO 01/02 2144 Patient Discharge Departure Vital Signs/Condition Vital Signs First Documented: Result Date Time Pulse Ox 99 01/02 2128 B/P 139/92 01/02 2128 B/P Mean 107 01/02 2128 O2 Delivery Room air 01/02 2128 Temp 36.7 01/02 2128 Pulse 64 01/02 2128 Resp 01/01 Last Documented: Result Date Time Pulse Ox 99 01/02 2128 B/P 139/92 01/02 2128 B/P Mean 107 01/02 2128 O2 Delivery Room air 01/02 2128 Temp 36.7 01/02 2128 Pulse 64 01/02 2128 Resp 01/01 All vital signs available at the time of this entry have been reviewed. Condition Stable Clinical Impression Clinical Impression Primary Impression: Olecranon bursitis, left elbow Disposition Decision Discharge )( Discharged to Home Yes )( Time 2147 )( Date 01/01/21 Discharge/Care Plan Counseled Regarding Diagnosis, Prescriptions, Need for follow-up, When to return to ED (Auto) Prescriptions Current Visit Scripts IBUPROFEN (ADVIL) 400 MG PO Q6H PRN PRN PAIN IBUPROFEN (ADVIL) 400 MG PO Q6H PRN PRN PAIN #20 TABS ALWAYS TAKE WITH FOOD Patient Instructions ED Bursitis Elbow Olecranon Additional Instructions REST ELEVATE WARM COMPRESS FOR 20 MINUTES 4X DAILY X2 DAYS F-UP WITH PCP IN 1-2 DAYS RETURN IF WITH INCREASING SWELLING REDNESS, DIFFICULTY MOVING ELBOW, FEVER, CHILLS Referrals PRIMARY CARE: 1-2 Days at 0819 RPT #:[id number] END OF REPORT [facility] 2020-07-12 15:08:00 [facility] ([facility]) EMERGENCY PROVIDER REPORT REPORT#:[id number] REPORT STATUS: Signed DATE:07/12/20 TIME: 1508 PATIENT: JADE GOODWIN UNIT #: [id number] ROOM/BED: AGE: 34 SEX: M PCP PHYS: No Primary or Family Physician SERVICE AUTHOR: Eliot Dawson MD * ALL edits or amendments must be made on the electronic/computer document * HPI-Back Pain Under 40 General Confirmed Patient Yes Initial Greet Date/Time 07/12/20 1451 Presentation Chief Complaint Pain, lumbar )( Sudden in Onset? Yes Associated with Denies: Abdominal pain, Chest pain, Cough, Dyspnea, Dysuria, Fever, Frequency, Hematuria, Inability to walk, Incontinence bladder, Incontinence bowel, Nausea, Vomiting, Numbness, lower ext R, Numbness, lower ext L, Numbness, both lower ext , Tingling, lower ext R, Tingling, lower ext L, Tingling, both lower ext, Weakness, lower ext R, Weakness, lower ext L, Weakness, both lower ext. Free Text HPI Notes Free Text HPI Notes 34-year-old male presents with a complaint of left lower back pain since yesterday evening. Patient states was sitting in a chair and was getting up 1 felt a sharp pain in his left lower back which was constant, nonradiating, worsened with movement. Patient states he does a lot of repetitive lifting at work but otherwise denies any trauma. Patient denies numbness, denies tingling, denies weakness, denies difficulty walking, denies incontinence, denies fever, denies cough, denies congestion, denies chest pain, denies shortness of breath, denies abdominal pain, denies urinary complaints, denies testicular pain, denies syncope. Review of Systems ROS Statements All systems rev neg except as marked. Focused Review of Systems Constitutional Denies: Chills, Fatigue, Fever, Lethargy, Malaise, Recent wt loss, Weakness - generalized. Respiratory Denies: Cough, non-productive, Cough, productive, Dyspnea on exertion, Hemoptysis, Parox nocturnal dyspnea, Pleuritic pain, Shortness of breath, Wheezing. Cardiovascular Denies: Chest pain, Edema, Orthopnea, Palpitations, Syncope. GI Denies: Abdominal pain, Anorexia, Belching, Bloody/tarry stool, Constipation, Diarrhea, Dysphagia, Hematemesis, Hematochezia, Mucousy stool, Melena, Nausea, Rectal pain, Vomiting. Male Denies: Dysuria, Flank pain, Hematuria, Incontinence, Nocturia, Penile discharge , Penile lesion, Scrotal swelling, Testicular pain, Testicular swelling, Urinary frequency, Urinary urgency, Urination decreased, Urination increased. Musculoskeletal Reports: Back pain, Lumbar pain. Denies: Extremity pain, Extremity swelling, Joint pain, Joint swelling, Myalgia, Neck pain, Thoracic pain. Neurologic Denies: Abnormal movement, Bladder dysfunction, Bowel dysfunction, Change LOC, Confusion, Dizziness, Focal weakness, Generalized weakness, Headache, Lightheaded, Numbness, Problem walking, Seizure, Shaking, Slurred speech, Spinning sensation, Syncope, Tingling, Unable to speak, Vision change. Past Medical History - Adult Stated Complaint MUSCLE PAIN Allergies Coded Allergies: No Known Allergies (01/30/20) Home Medications Reported Medications ESOMEPRAZOLE MAG DR (NexIUM) 20 MG PO DAILY Calculated Suicide Risk (nurs) No risk Past Medical History: Reports: Asthma (NOW INFORMED AT D/C CONSULT), GERD/gastritis. Denies: Coronary artery disease, Diabetes mellitus, Hypertension. Past Surgical History: Denies: Abdominal surgery, Appendectomy. Smoking status: Smoking status for patients 13 years old or older: Never Smoker Physical Exam Vital Signs Vital Signs First Documented: Result Date Time Pulse Ox 95 07/12 1445 B/P 134/77 07/12 1445 B/P Mean 96 07/12 1445 O2 Delivery Room air 07/12 1444 Temp 36.6 07/12 1445 Pulse 96 07/12 1445 Resp 15 07/12 144 Last Documented: Result Date Time Pulse Ox 99 07/12 1606 B/P 126/72 07/12 1606 B/P Mean 90 07/12 1606 Pulse 85 07/12 1606 Resp 15 07/12 1606 O2 Delivery Room air 07/12 1445 Temp 36.6 07/12 1445 Review of Vital Signs Reviewed Focused PE General/Const General/Const Awake, Alert, No acute distress, Cooperative, Not toxic appearing Appearance/Presentation Uncomfortable. MS Neck Neck Supple, No meningismus, Full range of motion, No swelling, Non-tender, No midline vertebral tend, No masses, No crepitus, No JVD, No tracheal deviation Resp/Chest Respiratory/Chest Breath sounds NL, Breath sounds = bilat, No respiratory distress, No rales, No rhonchi, No wheezing, No retractions, No stridor, No chest tenderness Cardiovascular Cardiovascular Heart rate NL, Regular rhythm, Heart sounds NL, No gallop, No murmurs, No rubs, Cap refill not delayed Abdomen/GI Abdomen/GI Soft, Non-tender, McBurney's non-tender, No guarding, No rebound, BS normoactive, No distention MS Back Flank/Spine/Paraspinal Lumbar paraspinal tend. Negative: Thorac paraspinal tend, Thoracic spine tender, Lumbar spine tender, Sacral paraspinal tend, Sacral spine tender, Coccyx tender, SI joint tender R, SI joint tender L, Scapular tenderness R, Scapular tenderness L, Flank tender R, Flank tender L, Flank tender bilateral, Erythema present, Swelling present, Mass present. Muscle Spasm/ROM Lumbar area spasm, Erector spinae tender L, Latisimus dorsi tender L. Negative: Thoracic area spasm, Sacral area spasm, Trapezius tender R, Trapezius tender L, Rhomboid tender R, Rhomboid tender L, Erector spinae tender R, Latisimus dorsi tender R, Gluteus tenderness R, Gluteus tenderness L, ROM decrease - mild, ROM decrease - mod, ROM decrease - severe. MS Lower Extrem Lower Ext/Pelvis/MS Atraumatic, Inspection NL, Full range of motion, No swelling, Non-tender, No erythema, No deformity, Neurologic intact, Vascular intact, No ligamentous injury, Tendon function NL, No compartment syndrome, No circumferential injury, No edema, Gait NL, Pelvis stable, Pelvis non-tender Neurologic Neurologic Oriented X3, Speech NL, No motor deficits, No sensory deficits, Gait NL, no saddle anesthesia Re-Evaluation MDM Free Text MDM Notes Free Text MDM Notes Spoke with patient concerning differential diagnosis, home care, importance of following up with clinic, and when to return to emergency department. Patient verbalized understanding. ED Course Medication(s) Ordered Medication(s) Ordered: Central Nervous System Agents Sig/Merlin Start time Last Medication Dose Route Stop Time Status Admin Ketorolac 60 MG X1ED STA 07/12 1507 DC 07/12 Tromethamine IM 07/12 1508 1550 Eye, Ear, Nose And Throat (Een Sig/Merlin Start time Last Medication Dose Route Stop Time Status Admin Dexamethasone Sodium 8 MG X1ED STA 07/12 1507 DC 07/12 Phosphate IM 07/12 1508 1550 Patient Discharge Departure Vital Signs/Condition Vital Signs First Documented: Result Date Time Pulse Ox 95 07/12 1445 B/P 134/77 07/12 1445 B/P Mean 96 07/12 1445 O2 Delivery Room air 07/12 1445 Temp 36.6 07/12 1445 Pulse 96 02/ 1445 Resp 15 07/12 1445 Last Documented: Result Date Time Pulse Ox 99 07/12 1606 B/P 126/72 07/12 1606 B/P Mean 90 07/12 1606 Pulse 85 / 1606 Resp 15 07/12 1606 O2 Delivery Room air 07/12 1445 Temp 36.6 07/12 1445 All vital signs available at the time of this entry have been reviewed. Condition Stable Clinical Impression Clinical Impression Primary Impression: Acute lumbar myofascial strain Disposition Decision Discharge )( Discharged to Home Yes )( Time 1553 )( Date 07/12/20 Discharge/Care Plan Counseled Regarding Diagnosis, Prescriptions, Need for follow-up, When to return to ED (Auto) Prescriptions Current Visit Scripts KETOROLAC (TORADOL) 10 MG PO Q6H PRN PRN PAIN KETOROLAC (TORADOL) 10 MG PO Q6H PRN PRN PAIN #20 TABS CYCLOBENZAPRINE (FLEXERIL) 10 MG PO Q8H PRN PRN MUSCLE SPASMS/PAIN CYCLOBENZAPRINE (FLEXERIL) 10 MG PO Q8H PRN PRN MUSCLE SPASMS/PAIN #15 TABS methylPREDNISolone (MEDROL 4 MG DOSEPAK) 4 MG PO ASDIR methylPREDNISolone (MEDROL 4 MG DOSEPAK) 4 MG PO ASDIR #1 PACKET Take as directed on package. Prescriptions Reviewed Risks, Benefits, Alternative treatment Patient Instructions ED Back Pain (Acute or Chronic) Additional Instructions You have been given a list of local primary care physicians, please call for appointment in the next 1 to 2 days. Return for worsening condition or any other concerns. Departure Forms [facility] Discharge Note I have spoken with the patient and/or caregivers. I have explained the patient's condition, diagnoses and treatment plan based on the information available to me at this time. I have answered the patient's and/or caregiver's questions and addressed any concerns. The patient and/or caregivers have as good an understanding of the patient's diagnosis, condition and treatment plan as can be expected at this point. The vital signs have been stable. The patient's condition is stable and appropriate for discharge from the emergency department. The patient will pursue further outpatient evaluation with the primary care physician or other designated or consulting physician as outlined in the discharge instructions. The patient and/or caregivers are agreeable to this plan of care and follow-up instructions have been explained in detail. The patient and/or caregivers have received these instructions in written format and have expressed an understanding of the discharge instructions. The patient and/or caregivers are aware that any significant change in condition or worsening of symptoms should prompt an immediate return to this or the closest emergency department or a call to 911. Quality Measures BP F/U for HTN F/u with PCP/other doc at 0724 RPT #:[id number] END OF REPORT [facility] 2020-01-30 09:57:00 [facility] ([facility]) EMERGENCY PROVIDER REPORT REPORT#:[id number] REPORT STATUS: Signed DATE:01/30/20 TIME: 956 PATIENT: JADE GOODWIN UNIT #: [id number] ROOM/BED: AGE: 34 SEX: M PCP PHYS: No Primary or Family Physician SERVICE AUTHOR: Tu Soto MD * ALL edits or amendments must be made on the electronic/computer document * HPI-Back Pain Under 40 General Initial Greet Date/Time 01/30/20 0949 Presentation Chief Complaint Pain, back Hx Obtained From Patient )( Sudden in Onset? Yes Onset Occurred Just prior to arrival Symptom Duration Constant Progression since Onset Constant Caused by Aggravated old injury, BOXES FELL ON HIM Location Spinal lumbar area, Spinal sacral area Quality Aching Radiation Does not radiate. Migration/Movement None Severity: Onset Mild Severity: Current Mild Associated with Denies: Frequency, Incontinence bladder, Incontinence bowel, Numbness, both lower ext, Weakness, both lower ext. 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 A couple of boxes fell onto his back. He states that the boxes weighed approximately 30 pounds combined. He does have a history of scoliosis and a previous back injury a year ago. The pain that he is having now is in the same places at previous back injury but he was pain-free prior to this incident. Negative for any numbness or tingling or weakness in the lower extremities negative for any bowel or bladder dysfunction. This is a mild, achy pain in his superior sacral region in the midline which is exacerbated by movement and feels better when he is still. The pain is been constant since the incident which occurred just prior to arrival. He did come in by EMS. Past medical history: Scoliosis, Surgical history: No previous surgeries. Social history: Negative for tobacco, negative for alcohol, negative for drugs, he is employed at [employer]. Review of systems: As above otherwise all other systems are negative Risk-Back Pain Under 40 Risk Stratification Thoracic Aortic Dissection Risk factors reviewed C-Collar Nexus Statement The patient presented to the emergency department with NO C-Collar in place. t the Nexus C-Spine criteria are negative: there is no post midline tenderness, the patient is not intoxicated, there is a normal level of alertness, there are no focal neurologic deficits and there are no distracting injuries. Therefore the C-Collar NOT INDICATED Review of Systems ROS Statements All systems rev neg except as marked. Past Medical History - Adult Stated Complaint LOWER BACK PAIN Allergies Coded Allergies: No Known Allergies (01/30/20) Home Medications Reported Medications ESOMEPRAZOLE MAG DR (NexIUM) 20 MG PO DAILY Past Medical History: Reports: Asthma (NOW INFORMED AT D/C CONSULT), GERD/gastritis. Denies: Coronary artery disease, Diabetes mellitus, Hypertension. Past Surgical History: Denies: Abdominal surgery, Appendectomy. Smoking status for patients 13 years old or older: Never Smoker Physical Exam Vital Signs Vital Signs First Documented: Result Date Time Pulse Ox 97 01/29 0948 B/P 128/85 01/29 0948 B/P Mean 99 01/29 0948 O2 Delivery Room air 01/29 0948 Pulse 90 01/29 0948 Resp 16 01/29 0948 Temp 98.0 01/29 0954 Last Documented: Result Date Time Pulse Ox 100 01/29 1103 B/P 126/84 01/29 1103 B/P Mean 98 01/29 1103 O2 Delivery Room air 01/29 1103 Temp 98.2 01/29 1103 Pulse 86 01/29 1103 Resp 18 01/29 1103 Review of Vital Signs Reviewed, Vital signs normal Basic Physical Exam Basic PE HEAD: Atraumatic/NC, EYES: PERRL, conj clear, ENT: Membranes moist, NECK: Supple, RESP: No resp distress, CV: Reg rate rhythm, ABD: Soft/non- tender, EXT: No gross abnormality, SKIN: No rashes, warm/dry, PSYCH: NL thought content Focused PE General/Const General/Const Awake, Alert, No acute distress MS Neck Neck Supple, No meningismus Resp/Chest Respiratory/Chest Breath sounds NL, Breath sounds = bilat Cardiovascular Cardiovascular Heart rate NL, Regular rhythm, Heart sounds NL Abdomen/GI Abdomen/GI Soft, Non-tender MS Back Text/Dict Notes Tenderness in the superior sacral region in the midline. Mild tenderness lower lumbar spine in the midline. Straight leg raise 90 degrees without radiculopathy bilaterally MS Lower Extrem Lower Ext/Pelvis/MS Atraumatic, Inspection NL, Full range of motion, No swelling Neurologic Neurologic Oriented X3, Speech NL, No motor deficits, No sensory deficits, CN II - XII intact, Cerebellar NL, Memory NL Text/Dict Notes Straight leg raise bilateral without radiculopathy Interpretation Diagnostics Radiography X-Ray L-Spine Text/Dict Note 3 views of the LS spine: Evidence of degenerative changes at T11 and T12 and L1 with some wedge deformity at L1. 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 There is no subluxations, my interpretation. Re-Evaluation MDM Free Text MDM Notes Free Text MDM Notes Trauma with an acute back injury and tenderness in the midline low lumbar spine. Will obtain x-rays, Toradol IM, recheck Re-Evaluation/Progress Re-Evaluation/Progress Text/Dict Note Feels better after the Toradol 30 mg IM. Feels like he can go back to work on limited duty and follow-up Workmen's Comp. NO OPIATES ON DC. Time of Re-Eval 1054 Re-Eval Status Improved ED Course Medication(s) Ordered Medication(s) Ordered: Central Nervous System Agents Sig/Merlin Start time Last Medication Dose Route Stop Time Status Admin Ketorolac 30 MG X1ED STA 01/29 0956 DC 01/29 Tromethamine IM 01/29 0957 1005 Patient Discharge Departure Vital Signs/Condition Vital Signs First Documented: Result Date Time Pulse Ox 97 01/29 0948 B/P 128/85 01/29 0948 B/P Mean 99 01/29 0948 O2 Delivery Room air 01/29 0948 Pulse 90 01/29 0948 Resp 16 01/29 0948 Temp 98.0 01/29 0954 Last Documented: Result Date Time Pulse Ox 100 01/29 1103 B/P 126/84 01/29 1103 B/P Mean 98 01/29 1103 O2 Delivery Room air 01/29 1103 Temp 98.2 01/29 1103 Pulse 86 01/29 1103 Resp 18 01/29 1103 All vital signs available at the time of this entry have been reviewed. Clinical Impression Clinical Impression Primary Impression: Acute myofascial strain of lumbosacral region Secondary Impressions: BILATERAL LUMBAR PAIN Disposition Decision Discharge )( Discharged to Home Yes )( Time 1055 )( Date 01/30/20 Discharge/Care Plan Prescriptions NAPROSYN Referrals No Primary or Family Physician (PCP) at 1112 RPT #:[id number] END OF REPORT [facility] 2019-08-29 08:10:00 [facility] ([facility]) EMERGENCY PROVIDER REPORT REPORT#:[id number] REPORT STATUS: Signed DATE:08/29/19 TIME: 0810 PATIENT: JADE GOODWIN UNIT #: [id number] ROOM/BED: AGE: 33 SEX: M PCP PHYS: No Primary or Family Physician SERVICE AUTHOR: Paco Aceves MD * ALL edits or amendments must be made on the electronic/computer document * HPI-Abd Pain M Under 40 General Confirmed Patient Yes Initial Greet Date/Time 08/29/19 0749 Presentation Chief Complaint Diarrhea moderate Hx Obtained From Patient Sudden in Onset? No Onset Occurred Yesterday Context of Onset Eating Location Diffuse Radiation No: Does not radiate. Migration/Movement None Severity: Onset Pain level 0 out of 10 Severity: Current Pain level 0 out of 10 Associated with Reports: Diarrhea. Denies: Chills. Exacerbated by Eating Relieved by Nothing Context Recent Healthcare No recent doctor visit, No recent hospitalization Similar Sx Previous No Risk-Abd Pain M Under 40 )( Torsion Risk factors reviewed Review of Systems ROS Statements All systems rev neg except as marked. Focused Review of Systems Constitutional Reports: Weakness - generalized. Denies: Fever. Respiratory Denies: Shortness of breath. Cardiovascular Denies: Chest pain. GI Reports: Diarrhea. Denies: Abdominal pain, Vomiting. Musculoskeletal Denies: Myalgia. Past Medical History - Adult Stated Complaint WEAKNESS UNABLE TO SLEEP DIARRHEA Allergies Coded Allergies: No Known Allergies (07/07/14) Home Medications Reported Medications ESOMEPRAZOLE MAG DR (NexIUM) 20 MG PO DAILY Review of Nursing Notes Rev avail, and agree Past Medical History: Reports: Asthma (NOW INFORMED AT D/C CONSULT), GERD/gastritis. Denies: Coronary artery disease, Diabetes mellitus, Hypertension. Past Surgical History: Denies: Abdominal surgery, Appendectomy. Physical Exam Vital Signs Vital Signs First Documented: Result Date Time Pulse Ox 96 08/28 746 B/P 148/93 08/28 746 B/P Mean 111 08/28 746 O2 Delivery Room air 08/28 746 Temp 36.8 08/28 746 Pulse 65 08/28 0747 Resp 20 08/28 746 Last Documented: Result Date Time Pulse Ox 98 08/28 0902 B/P 139/88 08/28 901 B/P Mean 105 08/28 901 Temp 36.7 08/28 901 Pulse 73 08/28 901 Resp 18 08/28 901 O2 Delivery Room air 08/28 07 Review of Vital Signs Reviewed Focused PE General/Const General/Const Awake, Alert, No acute distress MS Head Head Normocephalic Eyes Eyes PERRL Ears/Nose/Throat Ears/Nose/Throat Airway patent, Mucous membranes moist, Pharynx NL Resp/Chest Respiratory/Chest Breath sounds NL, Breath sounds = bilat, No respiratory distress, No rales, No rhonchi, No wheezing Cardiovascular Cardiovascular Heart rate NL, Regular rhythm, Heart sounds NL, Peripheral circulation NL Abdomen/GI Abdomen/GI Soft, No guarding, BS normoactive, No distention Tenderness/Guarding/Rebound Negative: Tender RUQ, Tender LUQ, Tender RLQ, Tender LLQ, Tender epigastric, Tender periumbilical, Tender suprapubic, Tender diffuse, Tender flank R, Tender flank L, Castle's sign positive, McBurney's point tender, Guarding voluntary, Guarding involuntary, Rebound localized, Rebound diffuse, Rigid to palpation. MS Back Back Inspection NL, Non-tender, No CVA tenderness Neurologic Neurologic Oriented X3, Speech NL, No motor deficits, No sensory deficits Interpretation Diagnostics Lab Results Interpretation Results Laboratory Tests 08/29/19804: [Embedded Image Not Available] Laboratory Tests: 08/28 804 Chemistry Sodium (136 - 145 mmol/L) 141 Potassium (3.5 - 5.1 mmol/L) 3.7 Chloride (98 - 107 mmol/L) 108 H Carbon Dioxide (21 - 32 mmol/L) 25 BUN (7 - 18 mg/dL) 20 H Creatinine (0.67 - 1.17 mg/dL) 1.10 Estimated GFR (MDRD) (>=60) > 60.00 Glucose (70 - 100 mg/dL) 115 H Calcium (8.5 - 10.1 mg/dL) 9.2 Total Bilirubin (0.2 - 1.0 mg/dl) 2.0 H Direct Bilirubin (0.0 - 0.4 mg/dl) 0.31 AST (15 - 37 U/L) 28 ALT (12 - 78 U/L) 37 Alkaline Phosphatase (50 - 136 U/L) 72 Total Protein (6.4 - 8.2 g/dl) 7.3 Albumin (3.4 - 5.0 g/dl) 3.8 Lipase (73 - 393 U/L) 67 L Hematology WBC (4.5 - 11.0 X10(3)) 4.9 RBC (4.3 - 5.9 X10(6)) 4.95 Hgb (13.5 - 18.0 g/dL) 16.8 Hct (42.0 - 52.0 %) 47.7 MCV (78 - 100 fl) 96.4 MCH (26.0 - 34.0 pg) 33.9 MCHC (30.0 - 37.0 g/dl) 35.2 RDW (11.5 - 14.5 %) 12.4 Plt Count (150 - 350 X10(3)) 272 MPV (8.7 - 11.4 fl) 9.5 Neut % (Auto) (36.0 - 66.0 %) 60.3 Lymph % (Auto) (16.0 - 50.0 %) 27.5 Meeker % (Auto) (0.0 - 13.0 %) 10.2 Eos % (Auto) (0.0 - 4.5 %) 1.2 Baso % (Auto) (0.0 - 1.5 %) 0.6 Immature Gran # (Auto) (0.00 - 0.03 X10(3)uL) 0.01 Absolute Neuts (auto) (1.70 - 7.70 X10(3)) 2.94 Absolute Lymphs (auto) (0.70 - 4.00 X10(3)) 1.34 Absolute Monos (auto) (0.00 - 0.89 X10(3)) 0.50 Absolute Eos (auto) (0.00 - 0.60 X10(3)) 0.06 Absolute Basos (auto) (0.00 - 0.20 X10(3)) 0.03 Absolute Nucleated RBC (0.0 - 0.1 K/mm3) 0.00 Immature Gran % (0.0 - 2.0 %) 0.2 Nucleated RBC % (0 - 0.2 %) 0.0 Microbiology: Date/Time Procedure - Status Source Growth 08/28 805 Blood Culture - RECD BLOOD 08/28 801 Blood Culture - RECD BLOOD Recent Impressions: RADIOLOGY - XR ABDOMEN 2V 08/28 0839 Report Impression - Status: SIGNED Entered: 08/29/2019 0859 IMPRESSION: No evidence of acute cardiopulmonary abnormality. No evidence of intestinal obstruction. Nonspecific bowel gas pattern. Impression By: Alina Parker MD RADIOLOGY - XR CHEST 1 V 08/29 0739 Report Impression - Status: SIGNED Entered: 08/29/2019 0859 IMPRESSION: No evidence of acute cardiopulmonary abnormality. No evidence of intestinal obstruction. Nonspecific bowel gas pattern. Impression By: Alina Parekr MD Lab Studies CBC Interpretation CBC NL BMP/CMP Interpretation BMP/CMP NL Radiography X-Ray Chest View Portable NL CXR Findings No acute disease, No infiltrate X-Ray Abdomen Study 2 view Obstruction/Free Air/Gas Pattern Nonspec gas bowel pattern Re-Evaluation MDM )( Re-Evaluation/Progress #1 )( Re-Eval Status Improved ED Course Medication(s) Ordered Medication(s) Ordered: Electrolytic, Caloric, And Kassie Sig/Merlin Start time Last Medication Dose Route Stop Time Status Admin Sodium Chloride 1,000 ML X1ED STA 08/28 0755 DC 08/28 IV 08/28 0854 0802 Patient Discharge Departure Vital Signs/Condition Vital Signs First Documented: Result Date Time Pulse Ox 96 08/28 0747 B/P 148/93 08/28 0747 B/P Mean 111 08/28 0747 O2 Delivery Room air 08/28 0747 Temp 36.8 08/28 0747 Pulse 65 08/28 0747 Resp 20 08/28 0747 Last Documented: Result Date Time Pulse Ox 98 08/28 0902 B/P 139/88 08/28 0902 B/P Mean 105 08/28 0902 Temp 36.7 08/28 0902 Pulse 73 08/28 0902 Resp 18 08/28 0902 O2 Delivery Room air 08/28 0747 All vital signs available at the time of this entry have been reviewed. Clinical Impression Clinical Impression Primary Impression: Diarrhea Disposition Decision Discharge )( Discharged to Home Yes )( Time 09 )( Date 08/29/19 Discharge/Care Plan Counseled Regarding Diagnosis, Lab results, Imaging studies, Need for follow-up, When to return to ED at 0920 RPT #:[id number] END OF REPORT [facility] 2019-08-21 14:03:00 [facility] ([facility]) EMERGENCY PROVIDER REPORT REPORT#:[id number] REPORT STATUS: Signed DATE:08/21/19 TIME: 1403 PATIENT: JADE GOODWIN UNIT #: [id number] ROOM/BED: AGE: 28 SEX: M PCP PHYS: No Primary or Family Physician SERVICE AUTHOR: Isaías Haskins MD * ALL edits or amendments must be made on the electronic/computer document * HPI-URI/Cough/Cold General Initial Greet Date/Time 08/21/19 1318 Presentation Chief Complaint cough, nasal congestion, bodyaches Hx Obtained From Patient Onset Occurred 2 days ago Symptom Duration Since onset Progression since Onset Waxes and wanes Context of Onset No sick contacts Severity: Onset Moderate Severity: Current Mild Exacerbated by Nothing Relieved by Nothing Review of Systems Focused Review of Systems Constitutional Denies: Chills, Fatigue, Fever, Lethargy, Malaise, Weakness - generalized. Ears/Nose/Throat Reports: Nasal congestion. Denies: Earache bilat, Sore throat. Respiratory Reports: Cough, non-productive. Denies: Cough, productive, Dyspnea on exertion, Hemoptysis, Parox nocturnal dyspnea, Pleuritic pain, Shortness of breath, Wheezing. GI Denies: Abdominal pain, Nausea, Vomiting. Skin Denies: Rash. Neurologic Denies: Dizziness, Focal weakness, Generalized weakness, Headache. Additional Review of Systems Cardiovascular Denies: Chest pain, Palpitations. Psychiatric Denies: Homicidal ideation, Suicidal ideation. Past Medical History - Adult Stated Complaint COUGH Allergies Coded Allergies: No Known Allergies (08/21/19) Pt reports no significant: Past medical history, Past surgical history, Family history, Social history Physical Exam Vital Signs Vital Signs First Documented: Result Date Time Pulse Ox 96 08/20 1309 B/P 126/79 08/20 1309 B/P Mean 94 08/20 1309 O2 Delivery Room air 08/20 1309 Temp 36.5 08/20 1309 Pulse 102 08/20 1309 Resp 15 08/20 1309 Last Documented: Result Date Time Pulse Ox 96 08/20 1309 B/P 126/79 08/20 1309 B/P Mean 94 08/20 1309 O2 Delivery Room air 08/20 1309 Temp 36.5 08/20 1309 Pulse 102 08/20 1309 Resp 15 08/20 1309 Review of Vital Signs Reviewed Focused PE General/Const General/Const Awake, Alert, No acute distress, Well appearing Eyes Eyes Atraumatic, PERRL Ears/Nose/Throat Ears/Nose/Throat Airway patent, Mucous membranes moist, Pharynx NL, No peritonsillar abscess, No pooling of secretions, No trismus, Tympanic membs NL, Ext aud canal NL, Mastoid area NL, Nose exam NL, No facial swelling, Gums/ dentition NL MS Neck Neck Supple, No adenopathy, No swelling Resp/Chest Respiratory/Chest Breath sounds NL, Breath sounds = bilat, No respiratory distress, No rales, No rhonchi, No wheezing, No retractions, No stridor Cardiovascular Cardiovascular Heart rate NL, Regular rhythm, Heart sounds NL, No gallop, No murmurs, No rubs Abdomen/GI Abdomen/GI Soft, Non-tender, No guarding, No rebound, BS normoactive, No distention Skin Skin Color NL, No rash, Warm, Dry, Intact Neurologic Neurologic Oriented X3, Speech NL Additional PE MS Head Head Normocephalic Lymphatic Lymphatic No gross adenopathy MS Lower Extrem Lower Ext/Pelvis/MS Inspection NL, No swelling Psychiatric Psychiatric Mood NL, Not suicidal, Not homicidal Interpretation Diagnostics Lab Results Interpretation Results Microbiology: Date/Time Procedure - Status Source Growth 08/20 1400 Influenza RSV (PCR) - COMP NASOPHARG 08/20 1400 Group A Streptococcus DNA Detection - COMP THROAT Recent Impressions: RADIOLOGY - XR CHEST 2 V 08/20 1358 Report Impression - Status: SIGNED Entered: 08/21/2019 1408 IMPRESSION: No acute cardiopulmonary process. Location: V20 Impression By: Therese CASANOVA M.D. Re-Evaluation MDM Re-Evaluation/Progress URI/Flu Adult MDM Note The patient is now resting comfortably, is alert and in no distress. The patient has a normal mental status and is neurologically intact. The patient appears well and is able to tolerate food or fluid by mouth, and there is no significant dehydration. There is no respiratory distress and no signs of systemic toxicity. The history, exam, diagnostic testing (if any) and current condition do not demonstrate an infectious process such as meningitis, severe pneumonia, retropharyngeal abscess, epiglottitis, sepsis or other serious bacterial infection requiring further testing, treatment, consultation, or admission at this time. The vital signs have been stable. The patient's condition is stable and appropriate for discharge. The patient will pursue further outpatient evaluation with the primary care physician or other designated or consulting physician as indicated in the discharge instructions. Patient Discharge Departure Vital Signs/Condition Vital Signs First Documented: Result Date Time Pulse Ox 96 08/20 1309 B/P 126/79 08/20 1309 B/P Mean 94 08/20 1309 O2 Delivery Room air 08/20 1309 Temp 36.5 08/20 1309 Pulse 102 08/20 1309 Resp 15 08/20 1309 Last Documented: Result Date Time Pulse Ox 96 08/20 1309 B/P 126/79 08/20 1309 B/P Mean 94 08/20 1309 O2 Delivery Room air 08/20 1309 Temp 36.5 08/20 1309 Pulse 102 08/20 1309 Resp 15 08/20 1309 All vital signs available at the time of this entry have been reviewed. Condition Improved, Stable Clinical Impression Clinical Impression Primary Impression: Acute URI Disposition Decision Discharge )( Discharged to Home Yes )( Time 1447 )( Date 08/21/19 Discharge/Care Plan Counseled Regarding Diagnosis, Lab results, Imaging studies, Need for follow-up, When to return to ED Discharge Note I have spoken with the patient and/or caregivers. I have explained the patient's condition, diagnoses and treatment plan based on the information available to me at this time. I have answered the patient's and/or caregiver's questions and addressed any concerns. The patient and/or caregivers have as good an understanding of the patient's diagnosis, condition and treatment plan as can be expected at this point. The vital signs have been stable. The patient's condition is stable and appropriate for discharge from the emergency department. The patient will pursue further outpatient evaluation with the primary care physician or other designated or consulting physician as outlined in the discharge instructions. The patient and/or caregivers are agreeable to this plan of care and follow-up instructions have been explained in detail. The patient and/or caregivers have received these instructions in written format and have expressed an understanding of the discharge instructions. The patient and/or caregivers are aware that any significant change in condition or worsening of symptoms should prompt an immediate return to this or the closest emergency department or a call to 911. at 1139 RPT #:[id number] END OF REPORT [facility] 2018-11-25 09:08:00 [id number] [place] [address] PATIENT NAME: JADE GOODWIN ADMIT DATE: 11/25/18 ACCOUNT NO: [id number] ROOM NO: AGE: 32 REPORT TYPE: ELECTROCARDIOGRAM SEX: M : 81 ADMITTING PHYSICIAN: ATTENDING PHYSICIAN:Zach Goel MD Order: [id number] Test Reason : dizzyness, dehydration Test Date/Time Stamp: SatNov 25 2018 09:08:27 Blood Pressure : / mmHG Vent. Rate : 081 BPM Atrial Rate : 081 BPM P-R Int : 164 ms QRS Dur : 092 ms QT Int : 344 ms P-R-T Axes : 045 103 050 degrees QTc Int : 399 ms Normal sinus rhythm Rightward axis Borderline ECG When compared with ECG of 29-AUG-2018 14:31, (Unconfirmed) No significant change was found Confirmed by ZACH GOEL MD ([id number]) on 11/26/2018 9:44:34 AM Referred By: Self Referred Confirmed by:ZACH GOEL MD at 0944 PATIENT NAME: JADE GOODWIN [facility] 2018-11-25 09:05:00 [facility] ([facility]) EMERGENCY PROVIDER REPORT REPORT#:[id number] REPORT STATUS: Signed DATE:11/25/18 TIME: 904 PATIENT: JADE GOODWIN UNIT #: [id number] ROOM/BED: AGE: 32 SEX: M PCP PHYS: No Primary or Family Physician SERVICE AUTHOR: Zach Goel MD * ALL edits or amendments must be made on the electronic/computer document * HPI-Nausea/Vomit/Diarrhea General Confirmed Patient Yes Patient Type New patient Date/Time Seen by Provider 11/25/18 0858 PCP none Presentation Chief Complaint Nausea, Vomiting, Diarrhea, Abd pain, intermittent, Abd pain, cramping Hx Obtained From Patient Free Text HPI Notes Free Text HPI Notes 32-year-old male complaining of multiple episodes of diarrhea more than 10 times , initially was soft now is watery, brownish-greenish color associated with vomiting x2 today and light headache and dizziness. Refers also crampy abdominal pain intermittent episode 1 time of defecation. Denies any fever, chills. Denies any chest pain, shortness of breath, back pain. Refers sick contacts with the same symptoms. Medical problems gastritis, bronchitis. No surgeries, no allergies, no PCP. Review of Systems ROS Statements All systems rev neg except as marked. Basic Review of Systems Basic ROS RESP: No SOB, CV: No chest pain, : No dysuria/frequency, MS: No ext swelling/pain Focused Review of Systems Constitutional Denies: Chills, Fever. GI Reports: Abdominal pain, Diarrhea, Nausea, Vomiting. Denies: Melena. Skin Denies: Rash. Neurologic Reports: Dizziness, Lightheaded. Denies: Abnormal movement, Bladder dysfunction , Bowel dysfunction, Change LOC, Confusion, Focal weakness, Generalized weakness , Headache, Numbness, Problem walking, Seizure, Shaking, Slurred speech, Spinning sensation, Syncope, Tingling, Unable to speak, Vision change. Past Medical History - Adult Stated Complaint DIZZINESS Allergies Coded Allergies: No Known Allergies (07/07/14) Home Medications Reported Medications ESOMEPRAZOLE MAG DR (NexIUM) 20 MG PO DAILY Review of Nursing Notes Rev avail, and agree Past Medical History: Reports: Asthma (NOW INFORMED AT D/C CONSULT), GERD/gastritis. Denies: Coronary artery disease, Diabetes mellitus, Hypertension. Physical Exam Vital Signs Vital Signs First Documented: Result Date Time Pulse Ox 97 11/25 900 B/P 117/67 11/25 900 B/P Mean 83 11/25 900 O2 Delivery Room air 11/25 900 Temp 36.7 11/25 900 Pulse 96 11/25 900 Resp 11/25 Last Documented: Result Date Time Pulse Ox 100 11/25 957 B/P 113/70 11/25 957 B/P Mean 84 11/25 957 O2 Delivery Room air 11/25 957 Temp 36.1 11/25 957 Pulse 80 11/25 957 Resp 11/25 Review of Vital Signs Reviewed Focused PE General/Const General/Const Awake, Alert, Cooperative Ears/Nose/Throat Ears/Nose/Throat Pharynx NL (dry lips.) Resp/Chest Respiratory/Chest Breath sounds NL, Breath sounds = bilat, No respiratory distress Cardiovascular Cardiovascular Regular rhythm, Heart sounds NL Abdomen/GI Abdomen/GI Atraumatic, Soft, Non-tender, No guarding, No rebound Skin Skin Color NL, No rash Neurologic Neurologic Oriented X3, Speech NL, No motor deficits, No sensory deficits, Memory NL, Gait NL Interpretation Diagnostics Lab Results Interpretation Results Laboratory Tests 11/25/18918: [Embedded Image Not Available] Laboratory Tests: 11/25 Chemistry Sodium (136 - 145 mmol/L) 140 Potassium (3.5 - 5.1 mmol/L) 3.8 Chloride (98 - 107 mmol/L) 104 Carbon Dioxide (21 - 32 mmol/L) 27 BUN (7 - 18 mg/dL) 21 H Creatinine (0.70 - 1.30 mg/dl) 1.23 Estimated GFR (MDRD) (>=60) > 60.00 Glucose (70 - 100 mg/dL) 112 H Lactic Acid (0.4 - 2.0 mmol/l) 1.2 Calcium (8.5 - 10.1 mg/dL) 8.8 Total Bilirubin (0.2 - 1.0 mg/dL) 1.2 H AST (15 - 37 U/L) 19 ALT (12 - 78 U/L) 32 Alkaline Phosphatase (45 - 117 U/L) 91 Total Protein (6.4 - 8.2 g/dl) 7.3 Albumin (3.4 - 5.0 g/dl) 3.7 Lipase (73 - 393 U/L) 125 Hematology WBC (4.5 - 11.0 X10(3)) 9.6 RBC (4.3 - 5.9 X10(6)) 4.88 Hgb (13.5 - 18.0 g/dL) 16.0 Hct (42.0 - 52.0 %) 47.1 MCV (78 - 100 fL) 96.5 MCH (26.0 - 34.0 pg) 32.8 MCHC (30.0 - 37.0 g/dl) 34.0 RDW (11.5 - 14.5 %) 12.2 Plt Count (150 - 350 X10(3)) 228 MPV (8.7 - 11.4 fl) 10.0 Neut % (Auto) (36.0 - 66.0 %) 82.6 H Lymph % (Auto) (16 - 50 %) 11.6 L [place] % (Auto) (0.0 - 13.0 %) 5.1 Eos % (Auto) (0.0 - 4.5 %) 0.5 Baso % (Auto) (0.0 - 1.5 %) 0.1 Immature Gran # (Auto) (0.00 - 0.03 X10(3)uL) 0.01 Absolute Neuts (auto) (1.7 - 7.7 X10(3)) 7.9 H Absolute Lymphs (auto) (1.0 - 4.8 X10(3)) 1.1 Absolute Monos (auto) (0.0 - 0.89 X10(3)) 0.5 Absolute Eos (auto) (0.0 - 0.6 X10(3)) 0.1 Absolute Basos (auto) (0.0 - 0.2 X10(3)) 0.0 Immature Gran % (0.0 - 2.0 %) 0.1 RBC Morphology (NORMAL) NO Microbiology: Date/Time Procedure - Status Source Growth 11/26 927 Gastrointestinal Tract Panel (PCR) - ORD STOOL Lab Statement Laboratory studies reviewed and considered in the medical decision-making. ECG #1 Interpretation ECG Documented in MUSE Yes Date 11/25/18 Time 0908 Interpreted by ED physician NL ECG Interpretation Normal rate, Normal sinus rhythm, No acute ischemic changes Rate 81 Re-Evaluation MDM Re-Evaluation/Progress #1 Time of Re-Eval 1023 Re-Eval Status Improved Eval Following Treatment Pt. feels better, Tolerating liquids, no N/, Nausea resolved, Vomiting resolved Pain Re-Evaluation Denies pain Exam Post Tx - General Active, Alert, Appears well, Vital signs stable (HR: 90's , BP: 110's/60's) Exam Post Tx - Sys Review Lungs clear, Abdomen soft, Neurologic nonfocal, Mental status baseline Plan Post Re-Eval Plan discharge ED Course Medication(s) Ordered Medication(s) Ordered: Electrolytic, Caloric, And Kassie Sig/Merlin Start time Last Medication Dose Route Stop Time Status Admin Sodium Chloride 1,000 ML X1ED ONE 11/25 0915 DC 11/25 IV 11/25 1014 0926 Sodium Chloride 1,000 ML X1ED STA 11/25 0904 DCD 11/25 IV 11/25 1103 0926 Gastrointestinal Drugs Sig/Merlin Start time Last Medication Dose Route Stop Time Status Admin Ondansetron HCl 4 MG ONCE PRN 11/25 0915 DCD 11/25 IV 12/25 0916 0925 Famotidine 20 MG X1ED STA 11/25 0904 DC 11/25 IV 11/25 0905 0925 Patient Discharge Departure Vital Signs/Condition Vital Signs First Documented: Result Date Time Pulse Ox 97 11/25 0901 B/P 117/67 11/25 0901 B/P Mean 83 11/25 0901 O2 Delivery Room air 11/25 0901 Temp 36.7 11/25 0901 Pulse 96 11/25 0901 Resp 18 11/25 0901 Last Documented: Result Date Time Pulse Ox 100 11/25 0958 B/P 113/70 11/25 0958 B/P Mean 84 11/25 0958 O2 Delivery Room air 11/25 0958 Temp 36.1 11/25 0958 Pulse 80 11/25 0958 Resp 18 11/25 0958 All vital signs available at the time of this entry have been reviewed. Condition Stable Clinical Impression Clinical Impression Primary Impression: Gastroenteritis Secondary Impressions: Dehydration Disposition Decision Discharge )( Discharged to Home Yes )( Time 1050 )( Date 11/25/18 Discharge/Care Plan Counseled Regarding Diagnosis, Lab results, Prescriptions, Need for follow-up, When to return to ED Discharge Note I have spoken with the patient and/or caregivers. I have explained the patient's condition, diagnoses and treatment plan based on the information available to me at this time. I have answered the patient's and/or caregiver's questions and addressed any concerns. The patient and/or caregivers have as good an understanding of the patient's diagnosis, condition and treatment plan as can be expected at this point. The vital signs have been stable. The patient's condition is stable and appropriate for discharge from the emergency department. The patient will pursue further outpatient evaluation with the primary care physician or other designated or consulting physician as outlined in the discharge instructions. The patient and/or caregivers are agreeable to this plan of care and follow-up instructions have been explained in detail. The patient and/or caregivers have received these instructions in written format and have expressed an understanding of the discharge instructions. The patient and/or caregivers are aware that any significant change in condition or worsening of symptoms should prompt an immediate return to this or the closest emergency department or a call to 911. at 1055 RPT #:[id number] END OF REPORT [facility] 2018-08[facility] 14:21:00 [facility] ([facility]) EMERGENCY PROVIDER REPORT REPORT#:[id number] REPORT STATUS: Signed DATE:08/29/18 TIME: 1420 PATIENT: JADE GOODWIN UNIT #: [id number] ROOM/BED: AGE: 32 SEX: M PCP PHYS: No Primary or Family Physician SERVICE AUTHOR: Thomas Tan APN * ALL edits or amendments must be made on the electronic/computer document * HPI-Abd Pain M Under 40 General Confirmed Patient Yes Patient Type New patient Initial Greet Date/Time 08/29/18 1419 Presentation Chief Complaint Abdominal pain, Nausea Hx Obtained From Patient Sudden in Onset? No Onset Occurred Hours ago (4 hours) Symptom Duration Since onset Progression since Onset Waxes and wanes Caused by No trauma by history Location LLQ Quality Painful Radiation RLQ. Migration/Movement None Severity: Onset Mild Severity: Current Mild Associated with Reports: Nausea. Denies: Back pain, Constipation, Diarrhea, Dysuria, Fever, Vomiting. Associated Other Pt denies other symptoms Exacerbated by Certain positions Relieved by Nothing Context Recent Healthcare No recent doctor visit, No recent hospitalization Similar Sx Previous No Free Text HPI Notes Free Text HPI Notes Pt presents to ED with a chief complaint of: Abdominal pain onset 4 hours [employer] Description: Pt reports abdominal pain began today 4 hours [employer] to ED. Pt reports that he was working last night, but denies doing any heavy lifting. Location: Pt reports pain is in the LLQ, but radiates to RLQ Severity onset: Mild Severity current: Mild Associated with: Pt reports nausea and being gassy Pertinent negatives: Pt denies V/D, dysuria, testicular pain, or constipation No other symptoms reported at this time Portions of this section were scribed by Paul Patricio on 08/29/18 at 1533 Risk-Abd Pain M Under 40 )( Torsion Risk factors reviewed Portions of this section were scribed by Paul Patricio on 08/29/18 at 1421 Review of Systems ROS Statements All systems rev neg except as marked. Focused Review of Systems Constitutional Denies: Fever, Weakness - generalized. Respiratory Denies: Cough, non-productive, Cough, productive, Shortness of breath. Cardiovascular Denies: Chest pain, Palpitations. GI Reports: Abdominal pain, Nausea. Denies: Constipation, Diarrhea, Vomiting. Male Denies: Dysuria. Musculoskeletal Denies: Back pain, Neck pain. Additional Review of Systems Eyes Denies: Photophobia. Ears/Nose/Throat Denies: Nasal congestion, Sore throat. Skin Denies: Abrasion, Laceration, Rash. Neurologic Denies: Headache. Portions of this section were scribed by Paul Patricio on 08/29/18 at 1421 Past Medical History - Adult Stated Complaint ABD PAIN Allergies Coded Allergies: No Known Allergies (07/07/14) Home Medications Reported Medications ESOMEPRAZOLE MAG DR (NexIUM) 20 MG PO DAILY Review of Nursing Notes Rev avail, and agree Pt reports no significant: Past surgical history, Family history Past Medical History: Reports: Asthma (NOW INFORMED AT D/C CONSULT), GERD/gastritis. Smoking status for patients 13 years old or older: Never Smoker Portions of this section were scribed by Paul Patricio on 08/29/18 at 1421 Physical Exam Vital Signs Vital Signs First Documented: Result Date Time Pulse Ox 99 08/29 1415 B/P 125/78 08/29 1415 B/P Mean 93 08/29 1415 O2 Delivery Room air 08/29 141 Temp 37.1 08/29 141 Pulse 89 08/29 1415 Resp 16 08/29 141 Last Documented: Result Date Time Pulse Ox 99 08/29 1415 B/P 125/78 08/29 1414 B/P Mean 93 08/29 1414 O2 Delivery Room air 08/29 1414 Temp 37.1 08/29 1414 Pulse 89 08/29 1414 Resp 16 08/29 1414 Review of Vital Signs Reviewed Focused PE General/Const General/Const Awake, Alert, Well appearing MS Head Head Normocephalic Eyes Eyes PERRL Ears/Nose/Throat Ears/Nose/Throat Airway patent, Mucous membranes moist, Pharynx NL Resp/Chest Respiratory/Chest Breath sounds NL, Breath sounds = bilat, No respiratory distress, No rales, No rhonchi, No wheezing Cardiovascular Cardiovascular Heart rate NL, Regular rhythm, Heart sounds NL, Peripheral circulation NL Abdomen/GI Abdomen/GI Soft, McBurney's non-tender, No guarding, No rebound, BS normoactive, No distention, No hernia, No palpable mass Tenderness/Guarding/Rebound Tender suprapubic. MS Back Back Inspection NL, Non-tender, No CVA tenderness Skin Skin Color NL, Warm, Dry, Turgor NL Genitourinary Male Genitourinary Inspection NL, Penis NL, No penile discharge, Testes NL, Epididymis NL, No mass, No hernia, No lesions or rash Rectum Rectum/Perineum Exam deferred Neurologic Neurologic Oriented X3, Speech NL, No motor deficits, No sensory deficits Portions of this section were scribed by Paul Patricio on 08/29/18 at 1533 Interpretation Diagnostics Lab Results Interpretation Results Laboratory Tests 08/29/18 1427: [Embedded Image Not Available] Laboratory Tests: 08/29 08/29 1448 1427 Chemistry Sodium (136 - 145 mmol/L) 139 Potassium (3.5 - 5.1 mmol/L) 3.6 Chloride (98 - 107 mmol/L) 103 Carbon Dioxide (21 - 32 mmol/L) 28 BUN (7 - 18 mg/dL) 16 Creatinine (0.67 - 1.17 mg/dL) 1.20 H Estimated GFR (MDRD) (>=60) > 60.00 Glucose (70 - 100 mg/dL) 156 H Calcium (8.5 - 10.1 mg/dL) 8.8 Total Bilirubin (0.2 - 1.0 mg/dl) 0.9 Direct Bilirubin (0.0 - 0.4 mg/dl) 0.10 AST (15 - 37 U/L) 22 ALT (12 - 78 U/L) 37 Alkaline Phosphatase (50 - 136 U/L) 95 Total Protein (6.4 - 8.2 g/dl) 7.5 Albumin (3.4 - 5.0 g/dl) 3.6 Lipase (73 - 393 U/L) 97 Hematology WBC (4.5 - 11.0 X10(3)) 8.7 RBC (4.3 - 5.9 X10(6)) 4.85 Hgb (13.5 - 18.0 g/dL) 16.1 Hct (42.0 - 52.0 %) 45.7 MCV (78 - 100 fl) 94.2 MCH (26.0 - 34.0 pg) 33.2 MCHC (30.0 - 37.0 g/dl) 35.2 RDW (11.5 - 14.5 %) 12.1 Plt Count (150 - 350 X10(3)) 248 MPV (8.7 - 11.4 fl) 10.0 Neut % (Auto) (36.0 - 66.0 %) 74.5 H Lymph % (Auto) (16 - 50 %) 17.1 Meeker % (Auto) (0.0 - 13.0 %) 6.9 Eos % (Auto) (0.0 - 4.5 %) 1.1 Baso % (Auto) (0.0 - 1.5 %) 0.2 Immature Gran # (Auto) (0.00 - 0.03 X10(3)uL) 0.02 Absolute Neuts (auto) (1.7 - 7.7 X10(3)) 6.5 Absolute Lymphs (auto) (0.7 - 4.0 X10(3)) 1.5 Absolute Monos (auto) (0.0 - 0.89 X10(3)) 0.6 Absolute Eos (auto) (0.0 - 0.6 X10(3)) 0.1 Absolute Basos (auto) (0.0 - 0.2 X10(3)) 0.0 Absolute Nucleated RBC (0.0 - 0.1 K/mm3) 0.00 Immature Gran % (0.0 - 2.0 %) 0.2 Nucleated RBC % (0 - 0.2 %) 0.0 Toxicology Ketones (NEGATIVE mg/dl) 5 H Urines Urine Color (YELLOW) Yellow Urine Appearance (CLEAR) CLEAR Urine pH (4.6 - 8.0) 6.0 Ur Specific [place] (1.001 - 1.035) 1.024 Urine Protein (NEGATIVE mg/dl) NEGATIVE Urine Glucose (UA) (NORMAL mg/dl) NORMAL Urine Blood (NEGATIVE /UL) NEGATIVE Urine Nitrite (NEGATIVE) NEGATIVE Urine Bilirubin (NEGATIVE mg/dl) NEGATIVE Urine Urobilinogen (NORMAL mg/dl) NORMAL Ur Leukocyte Esterase (NEGATIVE /UL) NEGATIVE Urine WBC (0 - 5 #/hpf) 3-5 Ur Epithelial Cells (NEG,FEW /hpf) FEW Urine Bacteria (NEGATIVE /hpf) FEW H Urine Sperm (NEGATIVE /hpf) FEW H Urine Comment CLN CATCH Recent Impressions: RADIOLOGY - XR ABDOMEN 1V (KUB) 08/29 1458 Report Impression - Status: SIGNED Entered: 08/29/2018 1540 IMPRESSION: No acute abnormality of the abdomen. No bowel obstruction. LOCATION: B2 Impression By: 16 - Evelia Hwang M.D. CAT SCAN - CT ABD PELVIS W/CONT 08/29 1620 Report Impression - Status: SIGNED Entered: 08/29/2018 1651 IMPRESSION: No evidence of acute intra-abdominal pathology. Specifically, the normal appendix is identified in the right lower quadrant, without surrounding inflammatory change. Impression By: [email or web address] - RADHA SMITH MD. Lab Imaging Statement Laboratory radiographic studies reviewed and considered in the medical decision-making. ECG #1 Interpretation ECG Documented in MUSE Yes Date 08/29/18 Time 1431 Interpreted by ED physician NL ECG Interpretation Normal rate, Normal sinus rhythm, No acute ischemic changes, No STEMI, No change from prior ECGs Rate 79 Portions of this section were scribed by Paul Patricio on 08/29/18 at 1533 Re-Evaluation MDM Free Text MDM Notes Free Text MDM Notes Patient seen by Dr. Conde. 1501 08/29/18 )( Re-Evaluation/Progress #1 Text/Dict Note Case discussed with Dr. Conde. Time of Re-Eval 1707 )( Re-Eval Status Improved ED Course Medication(s) Ordered Medication(s) Ordered: Central Nervous System Agents Sig/Merlin Start time Last Medication Dose Route Stop Time Status Admin Acetaminophen 1,000 MG X1ED STA 08/29 1420 DC 08/29 PO 08/29 1421 1427 Diagnostic Agents Sig/Merlin Start time Last Medication Dose Route Stop Time Status Admin Iopamidol 0 .STK-MED ONE 08/29 1611 DC .ROUTE Electrolytic, Caloric, And Kassie Sig/Merlin Start time Last Medication Dose Route Stop Time Status Admin Sodium Chloride 1,000 ML X1ED STA 08/29 1503 DC 08/29 IV 08/29 1602 1522 Gastrointestinal Drugs Sig/Merlin Start time Last Medication Dose Route Stop Time Status Admin Ondansetron Base 8 MG ONCE PRN 08/29 1430 AC 08/29 PO 09/28 1431 1427 Differential Diagnosis Differential Diagnosis Acute abdominal pain, Appendicitis, Constipation, Contusion abdominal wall, Inflam bowel disease, Torsion testicle R, Torsion testicle L, Urinary obstruction, Urinary tract infection Portions of this section were scribed by Paul Patricio on 08/29/18 at 1533 Patient Discharge Departure Vital Signs/Condition Vital Signs First Documented: Result Date Time Pulse Ox 99 08/29 1415 B/P 125/78 08/29 1415 B/P Mean 93 08/29 1415 O2 Delivery Room air 08/29 1415 Temp 37.1 08/29 1415 Pulse 89 08/29 1415 Resp 16 08/29 1415 Last Documented: Result Date Time Pulse Ox 99 08/29 1415 B/P 125/78 08/29 1415 B/P Mean 93 08/29 1415 O2 Delivery Room air 08/29 1415 Temp 37.1 08/29 1415 Pulse 89 08/29 1415 Resp 16 08/29 1415 All vital signs available at the time of this entry have been reviewed. Condition Stable Clinical Impression Clinical Impression Primary Impression: Abdominal pain Disposition Decision Discharge )( Discharged to Home Yes )( Time 1708 )( Date 08/29/18 Discharge/Care Plan Counseled Regarding Diagnosis, Lab results, Imaging studies, Prescriptions ( Tylenol, Bentyl, Zofran), Need for follow-up, When to return to ED Discharge Note I have spoken with the patient and/or caregivers. I have explained the patient's condition, diagnoses and treatment plan based on the information available to me at this time. I have answered the patient's and/or caregiver's questions and addressed any concerns. The patient and/or caregivers have as good an understanding of the patient's diagnosis, condition and treatment plan as can be expected at this point. The vital signs have been stable. The patient's condition is stable and appropriate for discharge from the emergency department. The patient will pursue further outpatient evaluation with the primary care physician or other designated or consulting physician as outlined in the discharge instructions. The patient and/or caregivers are agreeable to this plan of care and follow-up instructions have been explained in detail. The patient and/or caregivers have received these instructions in written format and have expressed an understanding of the discharge instructions. The patient and/or caregivers are aware that any significant change in condition or worsening of symptoms should prompt an immediate return to this or the closest emergency department or a call to 911. Supervising Physician Note Scribe Statement Paul Patricio, 08/29/18 142, scribing for and in the presence of [Thomas Tan APN]. Signed By: Paul Patricio, 08/29/184 Provider Scribed Statement I personally performed the services described in this documentation and reviewed the documentation that was dictated to the scribe(s) in my presence, and it accurately records my words and actions. Thomas Tan APN, 08/29/18 Portions of this section were scribed by Paul Patricio on 08/29/18 at 1533 at 1713 RPT #:[id number] END OF REPORT [facility] 2018-08-29 14:21:00 [facility] ([facility]) EMERGENCY PROVIDER REPORT REPORT#:[id number] REPORT STATUS: Signed DATE:08/29/18 TIME: 1420 PATIENT: JADE GOODWIN UNIT #: [id number] ROOM/BED: AGE: 32 SEX: M PCP PHYS: No Primary or Family Physician SERVICE AUTHOR: Thomas Tan APN * ALL edits or amendments must be made on the electronic/computer document * Thomas Tan 08/29/18 1421: HPI-Abd Pain M Under 40 General Confirmed Patient Yes Patient Type New patient Presentation Chief Complaint Abdominal pain, Nausea Hx Obtained From Patient Sudden in Onset? No Onset Occurred Hours ago (4 hours) Symptom Duration Since onset Progression since Onset Waxes and wanes Caused by No trauma by history Location LLQ Quality Painful Radiation RLQ. Migration/Movement None Severity: Onset Mild Severity: Current Mild Associated with Reports: Nausea. Denies: Back pain, Constipation, Diarrhea, Dysuria, Fever, Vomiting. Associated Other Pt denies other symptoms Exacerbated by Certain positions Relieved by Nothing Context Recent Healthcare No recent doctor visit, No recent hospitalization Similar Sx Previous No Free Text HPI Notes Free Text HPI Notes Pt presents to ED with a chief complaint of: Abdominal pain onset 4 hours [employer] Description: Pt reports abdominal pain began today 4 hours [employer] to ED. Pt reports that he was working last night, but denies doing any heavy lifting. Location: Pt reports pain is in the LLQ, but radiates to RLQ Severity onset: Mild Severity current: Mild Associated with: Pt reports nausea and being gassy Pertinent negatives: Pt denies V/D, dysuria, testicular pain, or constipation No other symptoms reported at this time Portions of this section were scribed by Paul Patricio on 08/29/18 at 1533 Risk-Abd Pain M Under 40 )( Torsion Risk factors reviewed Portions of this section were scribed by Paul Patricio on 08/29/18 at 1421 Review of Systems ROS Statements All systems rev neg except as marked. Focused Review of Systems Constitutional Denies: Fever, Weakness - generalized. Respiratory Denies: Cough, non-productive, Cough, productive, Shortness of breath. Cardiovascular Denies: Chest pain, Palpitations. GI Reports: Abdominal pain, Nausea. Denies: Constipation, Diarrhea, Vomiting. Male Denies: Dysuria. Musculoskeletal Denies: Back pain, Neck pain. Additional Review of Systems Eyes Denies: Photophobia. Ears/Nose/Throat Denies: Nasal congestion, Sore throat. Skin Denies: Abrasion, Laceration, Rash. Neurologic Denies: Headache. Portions of this section were scribed by Paul Patricio on 08/29/18 at 1421 Past Medical History - Adult Stated Complaint ABD PAIN Allergies Coded Allergies: No Known Allergies (07/07/14) Home Medications Reported Medications ESOMEPRAZOLE MAG DR (NexIUM) 20 MG PO DAILY Review of Nursing Notes Rev avail, and agree Pt reports no significant: Past surgical history, Family history Past Medical History: Reports: Asthma (NOW INFORMED AT D/C CONSULT), GERD/gastritis. Smoking status for patients 13 years old or older: Never Smoker Portions of this section were scribed by Paul Patricio on 08/29/18 at 1421 Physical Exam Vital Signs Vital Signs First Documented: Result Date Time Pulse Ox 99 08/29 1415 B/P 125/78 08/29 1415 B/P Mean 93 08/29 1415 O2 Delivery Room air 08/29 141 Temp 37.1 08/29 1415 Pulse 89 08/29 1415 Resp 16 08/29 141 Last Documented: Result Date Time Pulse Ox 99 08/29 1415 B/P 125/78 08/29 1415 B/P Mean 93 08/29 1415 O2 Delivery Room air 08/29 1415 Temp 37.1 08/29 1415 Pulse 89 08/29 1415 Resp 16 08/29 141 Review of Vital Signs Reviewed Focused PE General/Const General/Const Awake, Alert, Well appearing MS Head Head Normocephalic Eyes Eyes PERRL Ears/Nose/Throat Ears/Nose/Throat Airway patent, Mucous membranes moist, Pharynx NL Resp/Chest Respiratory/Chest Breath sounds NL, Breath sounds = bilat, No respiratory distress, No rales, No rhonchi, No wheezing Cardiovascular Cardiovascular Heart rate NL, Regular rhythm, Heart sounds NL, Peripheral circulation NL Abdomen/GI Abdomen/GI Soft, McBurney's non-tender, No guarding, No rebound, BS normoactive, No distention, No hernia, No palpable mass Tenderness/Guarding/Rebound Tender suprapubic. MS Back Back Inspection NL, Non-tender, No CVA tenderness Skin Skin Color NL, Warm, Dry, Turgor NL Genitourinary Male Genitourinary Inspection NL, Penis NL, No penile discharge, Testes NL, Epididymis NL, No mass, No hernia, No lesions or rash Rectum Rectum/Perineum Exam deferred Neurologic Neurologic Oriented X3, Speech NL, No motor deficits, No sensory deficits Portions of this section were scribed by Paul Patricio on 08/29/18 at 1533 Interpretation Diagnostics Lab Results Interpretation Results Laboratory Tests 08/29/18 1427: [Embedded Image Not Available] Laboratory Tests: 08/29 08/29 1448 1427 Chemistry Sodium (136 - 145 mmol/L) 139 Potassium (3.5 - 5.1 mmol/L) 3.6 Chloride (98 - 107 mmol/L) 103 Carbon Dioxide (21 - 32 mmol/L) 28 BUN (7 - 18 mg/dL) 16 Creatinine (0.67 - 1.17 mg/dL) 1.20 H Estimated GFR (MDRD) (>=60) > 60.00 Glucose (70 - 100 mg/dL) 156 H Calcium (8.5 - 10.1 mg/dL) 8.8 Total Bilirubin (0.2 - 1.0 mg/dl) 0.9 Direct Bilirubin (0.0 - 0.4 mg/dl) 0.10 AST (15 - 37 U/L) 22 ALT (12 - 78 U/L) 37 Alkaline Phosphatase (50 - 136 U/L) 95 Total Protein (6.4 - 8.2 g/dl) 7.5 Albumin (3.4 - 5.0 g/dl) 3.6 Lipase (73 - 393 U/L) 97 Hematology WBC (4.5 - 11.0 X10(3)) 8.7 RBC (4.3 - 5.9 X10(6)) 4.85 Hgb (13.5 - 18.0 g/dL) 16.1 Hct (42.0 - 52.0 %) 45.7 MCV (78 - 100 fl) 94.2 MCH (26.0 - 34.0 pg) 33.2 MCHC (30.0 - 37.0 g/dl) 35.2 RDW (11.5 - 14.5 %) 12.1 Plt Count (150 - 350 X10(3)) 248 MPV (8.7 - 11.4 fl) 10.0 Neut % (Auto) (36.0 - 66.0 %) 74.5 H Lymph % (Auto) (16 - 50 %) 17.1 [place] % (Auto) (0.0 - 13.0 %) 6.9 Eos % (Auto) (0.0 - 4.5 %) 1.1 Baso % (Auto) (0.0 - 1.5 %) 0.2 Immature Gran # (Auto) (0.00 - 0.03 X10(3)uL) 0.02 Absolute Neuts (auto) (1.7 - 7.7 X10(3)) 6.5 Absolute Lymphs (auto) (0.7 - 4.0 X10(3)) 1.5 Absolute Monos (auto) (0.0 - 0.89 X10(3)) 0.6 Absolute Eos (auto) (0.0 - 0.6 X10(3)) 0.1 Absolute Basos (auto) (0.0 - 0.2 X10(3)) 0.0 Absolute Nucleated RBC (0.0 - 0.1 K/mm3) 0.00 Immature Gran % (0.0 - 2.0 %) 0.2 Nucleated RBC % (0 - 0.2 %) 0.0 Toxicology Ketones (NEGATIVE mg/dl) 5 H Urines Urine Color (YELLOW) Yellow Urine Appearance (CLEAR) CLEAR Urine pH (4.6 - 8.0) 6.0 Ur Specific [place] (1.001 - 1.035) 1.024 Urine Protein (NEGATIVE mg/dl) NEGATIVE Urine Glucose (UA) (NORMAL mg/dl) NORMAL Urine Blood (NEGATIVE /UL) NEGATIVE Urine Nitrite (NEGATIVE) NEGATIVE Urine Bilirubin (NEGATIVE mg/dl) NEGATIVE Urine Urobilinogen (NORMAL mg/dl) NORMAL Ur Leukocyte Esterase (NEGATIVE /UL) NEGATIVE Urine WBC (0 - 5 #/hpf) 3-5 Ur Epithelial Cells (NEG,FEW /hpf) FEW Urine Bacteria (NEGATIVE /hpf) FEW H Urine Sperm (NEGATIVE /hpf) FEW H Urine Comment CLN CATCH Recent Impressions: RADIOLOGY - XR ABDOMEN 1V (KUB) 08/29 1458 Report Impression - Status: SIGNED Entered: 08/29/2018 1540 IMPRESSION: No acute abnormality of the abdomen. No bowel obstruction. LOCATION: B2 Impression By: 16 - Evelia Hwang M.D. CAT SCAN - CT ABD PELVIS W/CONT 08/29 1620 Report Impression - Status: SIGNED Entered: 08/29/2018 1651 IMPRESSION: No evidence of acute intra-abdominal pathology. Specifically, the normal appendix is identified in the right lower quadrant, without surrounding inflammatory change. Impression By: [email or web address] - RADHA SMITH MD. Lab Imaging Statement Laboratory radiographic studies reviewed and considered in the medical decision-making. ECG #1 Interpretation ECG Documented in MUSE Yes Date 08/29/18 Time 1431 Interpreted by ED physician NL ECG Interpretation Normal rate, Normal sinus rhythm, No acute ischemic changes, No STEMI, No change from prior ECGs Rate 79 Portions of this section were scribed by aPul Patricio on 08/29/18 at 1533 Re-Evaluation MDM Free Text MDM Notes Free Text MDM Notes Patient seen by Dr. Conde. 1501 08/29/18 )( Re-Evaluation/Progress #1 Text/Dict Note Case discussed with Dr. Conde. Time of Re-Eval 1707 )( Re-Eval Status Improved ED Course Medication(s) Ordered Medication(s) Ordered: Central Nervous System Agents Sig/Merlin Start time Last Medication Dose Route Stop Time Status Admin Acetaminophen 1,000 MG X1ED STA 08/29 1420 DC 08/29 PO 08/29 1421 1427 Diagnostic Agents Sig/Merlin Start time Last Medication Dose Route Stop Time Status Admin Iopamidol 0 .STK-MED ONE 08/29 1611 DC 08/29 .ROUTE 1722 Electrolytic, Caloric, And Kassie Sig/Merlin Start time Last Medication Dose Route Stop Time Status Admin Sodium Chloride 1,000 ML X1ED STA 08/29 1503 DC 08/29 IV 08/29 1602 1522 Gastrointestinal Drugs Sig/Merlin Start time Last Medication Dose Route Stop Time Status Admin Ondansetron Base 8 MG ONCE PRN 08/29 1430 AC 08/29 PO 09/28 1431 1427 Differential Diagnosis Differential Diagnosis Acute abdominal pain, Appendicitis, Constipation, Contusion abdominal wall, Inflam bowel disease, Torsion testicle R, Torsion testicle L, Urinary obstruction, Urinary tract infection Portions of this section were scribed by Paul Patricio on 08/29/18 at 1533 Patient Discharge Departure Vital Signs/Condition Vital Signs First Documented: Result Date Time Pulse Ox 99 08/29 1415 B/P 125/78 08/29 1415 B/P Mean 93 08/29 1415 O2 Delivery Room air 08/29 1415 Temp 37.1 08/29 1415 Pulse 89 08/29 1415 Resp 16 08/29 1415 Last Documented: Result Date Time Pulse Ox 99 08/29 1415 B/P 125/78 08/29 1414 B/P Mean 93 08/29 141 O2 Delivery Room air 08/29 1414 Temp 37.1 08/29 1414 Pulse 89 08/29 1414 Resp 16 08/29 1414 All vital signs available at the time of this entry have been reviewed. Condition Stable Clinical Impression Clinical Impression Primary Impression: Abdominal pain Disposition Decision Discharge )( Discharged to Home Yes )( Time 1708 )( Date 08/29/18 Discharge/Care Plan Counseled Regarding Diagnosis, Lab results, Imaging studies, Prescriptions ( Tylenol, Bentyl, Zofran), Need for follow-up, When to return to ED Discharge Note I have spoken with the patient and/or caregivers. I have explained the patient's condition, diagnoses and treatment plan based on the information available to me at this time. I have answered the patient's and/or caregiver's questions and addressed any concerns. The patient and/or caregivers have as good an understanding of the patient's diagnosis, condition and treatment plan as can be expected at this point. The vital signs have been stable. The patient's condition is stable and appropriate for discharge from the emergency department. The patient will pursue further outpatient evaluation with the primary care physician or other designated or consulting physician as outlined in the discharge instructions. The patient and/or caregivers are agreeable to this plan of care and follow-up instructions have been explained in detail. The patient and/or caregivers have received these instructions in written format and have expressed an understanding of the discharge instructions. The patient and/or caregivers are aware that any significant change in condition or worsening of symptoms should prompt an immediate return to this or the closest emergency department or a call to 911. Supervising Physician Note Scribe Statement Paul Patricio, 08/29/18 1424, scribing for and in the presence of [Thomas Tan APN]. Signed By: Paul Patricio, 08/29/18 1424 Provider Scribed Statement I personally performed the services described in this documentation and reviewed the documentation that was dictated to the scribe(s) in my presence, and it accurately records my words and actions. Thomas Tan APN, 08/29/18 Portions of this section were scribed by Paul Patricio on 08/29/18 at 1533 Lexus Conde 08/29/18 1724: HPI-Abd Pain M Under 40 General Initial Greet Date/Time 08/29/18 1419 Physical Exam Vital Signs Vital Signs Interpretation Diagnostics Lab Results Interpretation Results Re-Evaluation MDM ED Course Medication(s) Ordered Patient Discharge Departure Vital Signs/Condition Vital Signs Supervising Physician Note MidLv/Doc Saw Pt 1 I have seen and evaluated this patient. Documentation of one or more elements of my assessment are included in the medical record. + LLQ/RLQ abdominal pain without guarding or rebound. Kept NPO for CT. Neg for appy or acute pathology. Ok to dc home with PCP follow-up. at 1713 at 1724 RPT #:[id number] END OF REPORT [facility]
--- NOTE | 2024-04-01 08:41 | ER ---
Nurse's Notes [facility] Name: Holland Riley Age: 38 yrs Sex: Male : 1985 Arrival Date: 04/01/2024 Time: 08:05 Bed 17 Private MD: Diagnosis: Acute sinusitis, unspecified Presentation: 04/01 08:33 Chief complaint: Patient states: Fever, GUNTER, congestion, feels hot for a few days. ll1 Coronavirus screen: Client denies travel out of the [place] in the last 14 days. congestion, fatigue, fever, headache, Client presents with at least one sign or symptom that may indicate coronavirus-19. Standard/surgical mask placed on the client. Ebola Screen: Patient denies travel to an Ebola-affected area in the 21 days before illness onset. Initial Sepsis Screen: Does the patient meet any 2 criteria? No. Patient's initial sepsis screen is negative. Does the patient have a suspected source of infection? No. Patient's initial sepsis screen is negative. Risk Assessment: Do you want to hurt yourself or someone else? Patient reports no desire to harm self or others. Onset of symptoms was March 30, 2024. 08:33 Method Of Arrival: Ambulatory ll1 08:33 Acuity: MATEO 4 ll1 Triage Assessment: 08:30 Headache History: The patient has had previous headaches and this one is similar to rs5 previous episodes. Pain: Also complains of. Pain: Denies pain. 08:33 General: Appears uncomfortable, Behavior is calm, cooperative, appropriate for age. ll1 Pain: Complains of pain in head Pain Quality of pain is described as aching. EENT: Reports nasal congestion. Neuro: Reports headache. Historical: - Allergies: 08:32 No Known Allergies; ll1 - PMHx: 08:32 Asthma; Bronchitis; Asthma; ll1 - PSHx: 08:32 None; ll1 - Immunization history:: Adult Immunizations up to date. - Infectious Disease History:: Denies. - Social history:: Smoking status: Patient reports the use of cigarette tobacco products, denies chronic smoking, but will smoke occasionally. - Family history:: not pertinent. - Hospitalizations: : No recent hospitalization is reported. Screenin:15 [facility] ED Fall Risk Assessment (Adult) History of falling in the last 3 months, rs5 including since admission No falls in past 3 months (0 pts) Confusion or Disorientation No (0 pts) Intoxicated or Sedated No (0 pts) Impaired Gait No (0 pts) Mobility Assist Device Used No (0 pt) Altered Elimination No (0 pt) Score/Fall Risk Level 0 - 2 = Low Risk Oriented to surroundings, Maintained a safe environment. 08:15 Abuse screen: Denies threats or abuse. Nutritional screening: No deficits noted. rs5 Tuberculosis screening: No symptoms or risk factors identified. Assessment: 08:15 General: Appears in no apparent distress. uncomfortable, Behavior is calm, cooperative. rs5 Pain: Denies pain. Neuro: Level of Consciousness is awake, alert, obeys commands, Oriented to person, place, time, situation. Cardiovascular: Patient's skin is warm and dry. Respiratory: Airway is patent Respiratory effort is even, unlabored, Respiratory pattern is regular, symmetrical. GI: Abdomen is round non-distended, Abd is soft and non tender X 4 quads. : No signs and/or symptoms were reported regarding the genitourinary system. EENT: Reports nasal congestion. Derm: Skin is intact, Skin is pink, warm \T\ dry. Musculoskeletal: Range of motion: intact in all extremities. Vital Signs: 08:33 BP 142 / 92; Pulse 75; Resp 17; Temp 98.2; Pulse Ox 96% on R/A; Weight 95.25 kg; Height ll1 5 ft. 6 in. ; Pain 3/10; 09:00 BP 132 / 80; Pulse 74; Resp 17; Pulse Ox 99% on R/A; rs5 08:33 Body Mass Index 33.89 (95.25 kg, 167.64 cm) ll1 08:33 Pain Scale: Adult ll1 ED Course: 08:09 Patient arrived in ED. mg5 08:11 Jake Brito MD is Attending Physician. rn 08:15 Patient has correct armband on for positive identification. Placed in gown. Bed in low rs5 position. Call light in reach. Side rails up X2. 08:15 No provider procedures requiring assistance completed. rs5 08:32 Arm band placed on Patient placed in an exam room, on a stretcher. ll1 08:34 Triage completed. ll1 09:00 Provided Education on: discharge instructions . rs5 09:05 Patient did not have IV access during this emergency room visit. rs5 09:06 Toni Horner, RN is Primary Nurse. rs5 Administered Medications: No medications were administered Medication: 08:20 VIS not applicable for this client. rs5 Outcome: 08:40 Discharge ordered by . rn 09:05 Discharged to home ambulatory, rs5 09:05 Condition: stable rs5 09:05 Discharge instructions given to patient, family, Instructed on discharge instructions, follow up and referral plans. medication usage, Demonstrated understanding of instructions, follow-up care, medications, Prescriptions given X 1, 09:06 Patient left the ED. rs5 Signatures: Jake Brito MD MD rn Lewis, Lynsay, RN RN ll1 Toni Horner RN RN rs5 Katherine Wood mg5 Corrections: (The following items were deleted from the chart) 09:21 09:15 BP 132 / 80; Pulse 74bpm; Resp 17bpm; Pulse Ox 99% RA; rs5 rs5
--- NOTE | 2024-04-01 08:41 | EDPHYS ---
Physician Documentation [facility] Name: Holland Riley Age: 38 yrs Sex: Male : 1985 Arrival Date: 04/01/2024 Time: 08:05 Bed 17 Private MD: ED Physician Jake Brito HPI: 04/01 08:38 This 38 yrs old Male presents to ER via Ambulatory with complaints of Fever, rn Headache. 08:38 The patient reports fever, not measured (subjective). Onset: The symptoms/episode rn began/occurred 3 day(s) ago. Modifying factors: there are no obvious modifying factors. Associated signs and symptoms: Pertinent positives: chills, cough, runny nose, sinus congestion. Severity of symptoms: At their worst the symptoms were mild in the emergency department the symptoms are unchanged. The patient has experienced similar episodes in the past. 08:38 Patient reports subjective fever, chills, sinus pressure and cough with congestion. rn Recent travel to [facility].. Historical: - Allergies: 08:32 No Known Allergies; ll1 - PMHx: 08:32 Asthma; Bronchitis; Asthma; ll1 - PSHx: 08:32 None; ll1 - Immunization history:: Adult Immunizations up to date. - Infectious Disease History:: Denies. - Social history:: Smoking status: Patient reports the use of cigarette tobacco products, denies chronic smoking, but will smoke occasionally. - Family history:: not pertinent. - Hospitalizations: : No recent hospitalization is reported. ROS: 08:38 Constitutional: Positive for fever and chills Eyes: Negative for injury, pain, redness, rn and discharge, ENT: Positive for congestion and sinus pressure Cardiovascular: Negative for chest pain, palpitations, and edema, Respiratory: Positive for cough, negative for shortness of breath Abdomen/GI: Negative for abdominal pain, nausea, vomiting, diarrhea, and constipation, MS/Extremity: Negative for injury and deformity, Skin: Negative for injury, rash, and discoloration, Neuro: Positive for headache Exam: 08:38 Constitutional: This is a well developed, well nourished patient who is awake, alert, rn and in no acute distress. Head/Face: Normocephalic, atraumatic. Eyes: Pupils equal round and reactive to light, extra-ocular motions intact. Lids and lashes normal. Conjunctiva and sclera are non-icteric and not injected. Cornea within normal limits. Periorbital areas with no swelling, redness, or edema. ENT: Mild pharyngeal erythema, no stridor Neck: No meningismus. Nontender lymphadenopathy present. Cardiovascular: Regular rate and rhythm. No pulse deficits. Respiratory: No increased work of breathing, no retractions or nasal flaring. Vital Signs: 08:33 BP 142 / 92; Pulse 75; Resp 17; Temp 98.2; Pulse Ox 96% on R/A; Weight 95.25 kg; Height ll1 5 ft. 6 in. ; Pain 3/10; 09:00 BP 132 / 80; Pulse 74; Resp 17; Pulse Ox 99% on R/A; rs5 08:33 Body Mass Index 33.89 (95.25 kg, 167.64 cm) ll1 08:33 Pain Scale: Adult ll1 MDM: 08:11 Medical Screening Exam initiated rn 08:38 Differential diagnosis: viral Infection, bacterial infection, URI. Data reviewed: vital rn signs, nurses notes, and as a result, I will discharge patient. Counseling: I had a detailed discussion with the patient and/or guardian regarding the historical points, exam findings, and any diagnostic results supporting the discharge/admit diagnosis, the need for outpatient follow up, to return to the emergency department if symptoms worsen or persist or if there are any questions or concerns that arise at home. Special discussion: I discussed with the patient/guardian in detail that at this point there is no indication for admission to the hospital. It is understood, however, that if the symptoms persist or worsen the patient needs to return immediately for re-evaluation. Administered Medications: No medications were administered Disposition Summary: 04/01/24 08:40 Discharge Ordered Notes: Location: Home rn Problem: new rn Symptoms: have improved rn Condition: Stable rn Diagnosis - Acute sinusitis, unspecified rn Followup: rn - With: Private Physician - When: As needed - Reason: Recheck today's complaints, Re-evaluation by your physician Discharge Instructions: - Discharge Summary Sheet rn - Sinusitis, Adult rn Forms: - Medication Reconciliation Form rn - Antibiotic city attorney - Prescription Opioid Use rn - Patient Portal Instructions rn - Leadership Thank You Letter rn Prescriptions: - Zithromax Z-Jack 250 mg Oral Tablet - take 1 tablet ORAL route as directed for 5 days Day 1 - take two (2) tablets rn one time. Day 2, 3, 4 , 5 take one (1) tablet once daily.; 6 tablet; Refills: 0, Product Selection Permitted Signatures: Jake Brito MD MD rn Lewis, Lynsay RN RN ll1 Toni Horner RN RN rs5
[2024-04-01 09:13] VITALS: BP 142/92; TEMP 98.2; O2SAT 96
== END 2024-04-01 09:06 | disposition home or self-care (01) ==
LOC: ER 08:05
DX: J01.90 Acute sinusitis, unspecified (principal); F17.210 Nicotine dependence, cigarettes, uncomplicated
CPT/HCPCS: 99283

== ENCOUNTER 2024-05-14 16:48 | Emergency (ER) | payer SELFPAY ==
[2024-05-14] MEDS ORDERED: ALBUTEROL 2.5 MG/3 ML NEB SOL ONE (17:16)
[2024-05-14] MEDS ORDERED: IPRATROPIUM BROM 0.5MG/2.5ML ONE (17:16)
--- NOTE | 2024-05-14 17:24 | RAD REPORT ---
EXAMINATION: ONE VIEW CHEST XR CLINICAL INDICATION: COUGH TECHNIQUE: Frontal chest projection is submitted. Examination is limited by patient positioning and t echnique. COMPARISON: No prior exam. FINDINGS: Nonspecific peribronchial thickening without focal consolidation could represent a viral or inflammat ory process. The heart is normal in size. No displaced fractures identified.
[2024-05-14 17:57] LABS: SARS-CoV-2 Antigen CONTROL BLUE LINE VIS/BG OK; SARS-CoV-2 Antigen Rapid Res Negative (Negative)
--- NOTE | 2024-05-14 17:58 | ER ---
Nurse's Notes [facility] Name: Holland Riley Age: 38 yrs Sex: Male : 1985 Arrival Date: 05/14/2024 Time: 16:48 Bed 6 Private MD: Diagnosis: Viral infection, unspecified Presentation: 05/14 16:51 Chief complaint: Patient states: cough, congestion, scratchy throat, wheezing. Worse at ko1 night than during the day. Coronavirus screen: congestion, cough unrelated to allergies, shortness of breath, sore throat. Ebola Screen: No symptoms or risks identified at this time. Initial Sepsis Screen: Does the patient meet any 2 criteria? No. Patient's initial sepsis screen is negative. Does the patient have a suspected source of infection? No. Patient's initial sepsis screen is negative. Risk Assessment: Do you want to hurt yourself or someone else? Patient reports no desire to harm self or others. Onset of symptoms is unknown. 16:51 Method Of Arrival: Ambulatory ko1 16:51 Acuity: MATEO 4 ko1 Triage Assessment: 16:55 General: Appears in no apparent distress. Behavior is calm, cooperative, appropriate ko1 for age. Pain: Complains of pain in chest. Respiratory: Reports shortness of breath on exertion cough that is non-productive, Onset: The symptoms/episode began/occurred gradually, the patient has moderate shortness of breath. Historical: - Allergies: 16:55 No Known Allergies; ko1 - Home Meds: 16:55 None [Active]; ko1 - PMHx: 16:55 Asthma; Bronchitis; ko1 - PSHx: 16:55 None; ko1 - Immunization history:: Adult Immunizations up to date. - Infectious Disease History:: Denies. - Social history:: Smoking status: Patient denies any tobacco usage or history of. Screenin:01 [facility] ED Fall Risk Assessment (Adult) History of falling in the last 3 months, rs5 including since admission No falls in past 3 months (0 pts) Confusion or Disorientation No (0 pts) Intoxicated or Sedated No (0 pts) Impaired Gait No (0 pts) Mobility Assist Device Used No (0 pt) Altered Elimination No (0 pt) Score/Fall Risk Level 0 - 2 = Low Risk Oriented to surroundings, Maintained a safe environment. Abuse screen: Denies threats or abuse. Nutritional screening: No deficits noted. Tuberculosis screening: No symptoms or risk factors identified. Assessment: 17:05 General: Appears in no apparent distress. uncomfortable, Behavior is calm, cooperative. rs5 Pain: Denies pain. Neuro: Level of Consciousness is awake, alert, obeys commands, Oriented to person, place, time, situation. Cardiovascular: Patient's skin is warm and dry. Rhythm is regular. Respiratory: Reports shortness of breath Airway is patent Respiratory effort is even, unlabored, Respiratory pattern is regular, symmetrical, Breath sounds are clear. GI: Abdomen is round non-distended, Abd is soft and non tender X 4 quads. : No signs and/or symptoms were reported regarding the genitourinary system. EENT: No signs and/or symptoms were reported regarding the EENT system. Derm: Skin is intact, Skin is pink, warm \T\ dry. Derm: Musculoskeletal: Range of motion: intact in all extremities. 18:08 Reassessment: Patient and/or family updated on plan of care and expected duration. Pain rs5 level reassessed. Patient is alert, oriented x 3, equal unlabored respirations, skin warm/dry/pink. Vital Signs: 16:51 BP 129 / 95; Pulse 85; Resp 16; Temp 98.1; Pulse Ox 99% on R/A; ko1 18:08 BP 125 / 81; Pulse 71; Resp 17; Pulse Ox 98% on R/A; rs5 ED Course: 16:50 Patient arrived in ED. ra3 16:50 Catarino Reagan MD is Attending Physician. ec2 16:55 Triage completed. ko1 16:55 Arm band placed on right wrist. Patient placed in an exam room, on a stretcher, on ko1 pulse oximetry, Patient notified of wait time. 17:01 Patient has correct armband on for positive identification. Placed in gown. Bed in low rs5 position. Call light in reach. Side rails up X2. 17:01 No provider procedures requiring assistance completed. rs5 17:12 Toni Horner, JUANCARLOS is Primary Nurse. rs5 17:22 CXR XRAY In Process Unspecified. EDMS 18:15 Patient did not have IV access during this emergency room visit. rs5 Administered Medications: 17:15 Drug: DuoNeb Nebulize (3:1) (2.5 mg - 0.5 mg) 3 ml Nebulizer once Route: Nebulizer; rs5 17:30 Follow up: Response: No adverse reaction rs5 Medication: 18:17 VIS not applicable for this client. rs5 Outcome: 17:58 Discharge ordered by . ec2 18:18 Discharged to home ambulatory, rs5 18:18 Condition: stable rs5 18:18 Discharge instructions given to patient, family, Instructed on discharge instructions, follow up and referral plans. medication usage, Demonstrated understanding of instructions, follow-up care, medications, Prescriptions given X 3, 18:19 Patient left the ED. rs5 Signatures: Dispatcher [employer] Maggie Lin RN RN ko1 Toni Horner RN RN rs5 Catarino Reagan MD MD ec2 Arcelia Banegas ra3 Corrections: (The following items were deleted from the chart) 16:55 16:55 PMHx: Asthma; ko1 ko1
--- NOTE | 2024-05-14 17:58 | EDPHYS ---
Physician Documentation [facility] Name: Holland Riley Age: 38 yrs Sex: Male : 1985 Arrival Date: 05/14/2024 Time: 16:48 Bed 6 Private MD: ED Physician Catarino Reagan HPI: 05/14 17:16 This 38 yrs old Male presents to ER via Ambulatory with complaints of ec2 Breathing Difficulty - 4xdays. 17:16 Patient arrives today for evaluation of cough and cold symptoms as well as shortness of ec2 breath. History of childhood asthma. Patient reports that he has an albuterol nebulizer at home that he has been using with some improvement in symptoms. Reports cough and congestion, no fevers or chills, no nausea or vomiting, no diarrhea symptoms.. Historical: - Allergies: 16:55 No Known Allergies; ko1 - Home Meds: 16:55 None [Active]; ko1 - PMHx: 16:55 Asthma; Bronchitis; ko1 - PSHx: 16:55 None; ko1 - Immunization history:: Adult Immunizations up to date. - Infectious Disease History:: Denies. - Social history:: Smoking status: Patient denies any tobacco usage or history of. ROS: 17:16 Constitutional: as per hpi ec2 Exam: 17:16 Constitutional: GEN: NAD Head: atraumatic Eyes: EOMI Ears: External ears are ec2 normal. CV: regular rate LUNGS: no respiratory distress, scattered wheezes noted multiple lung machuca. ABD: non-distended SKIN: no evidence of rashes MSK: no evidence of trauma Vital Signs: 16:51 BP 129 / 95; Pulse 85; Resp 16; Temp 98.1; Pulse Ox 99% on R/A; ko1 18:08 BP 125 / 81; Pulse 71; Resp 17; Pulse Ox 98% on R/A; rs5 MDM: 16:50 Medical Screening Exam initiated ec2 17:16 Data reviewed: vital signs, nurses notes. ED course: Patient arrives today for upper ec2 respiratory symptoms. Examination revealing for occasional wheezes noted. Will obtain viral swabs, chest x-ray, treat with steroids and DuoNeb. Suspect viral infection. Doubt pneumonia given lack of focal lung sounds. Doubt volume overload given lack of cardiac history.. 17:58 ED course: Negative viral swabs, suspect viral infection. No evidence of lobar will ec2 discharge home with steroids as well as antibiotics and albuterol given asthma history pneumonia on chest x-ray.. 12 17:00 Order name: Influenza Screen (a \T\ B); Complete Time: 17:58 ec2 12 17:00 Order name: SARS RAPID; Complete Time: 17:58 ec2 05/14 17:00 Order name: CXR XRAY; Complete Time: 17:25 ec2 Administered Medications: 17:15 Drug: DuoNeb Nebulize (3:1) (2.5 mg - 0.5 mg) 3 ml Nebulizer once Route: Nebulizer; rs5 17:30 Follow up: Response: No adverse reaction rs5 Disposition Summary: 05/14/24 17:58 Discharge Ordered Notes: Location: Home ec2 Condition: Stable ec2 Diagnosis - Viral infection, unspecified ec2 Followup: ec2 - With: Private Physician - When: - Reason: Re-evaluation by your physician Discharge Instructions: - Discharge Summary Sheet ec2 - Viral Illness, Adult ec2 Forms: - Medication Reconciliation Form ec2 - Antibiotic Education ec2 - Prescription Opioid Use ec2 - Patient Portal Instructions ec2 - Leadership Thank You Letter ec2 Prescriptions: - Albuterol Sulfate 2.5 mg /3 mL (0.083 %) Inhalation Solution for Nebulization - inhale 1 unit NEBULIZATION route every 8 hours As needed; 1 unit; Refills: 0, ec2 Product Selection Permitted - Zithromax Z-Jcak 250 mg Oral Tablet - take 1 tablet ORAL route as directed for 5 days Day 1 - take two (2) tablets ec2 one time. Day 2, 3, 4 , 5 take one (1) tablet once daily.; 6 tablet; Refills: 0, Product Selection Permitted - Prednisone 20 mg Oral Tablet - take 2 tablets ORAL route once daily for 5 days; 10 tablet; Refills: 0, Product ec2 Selection Permitted Signatures: Dispatcher [employer] Maggie Lin RN RN ko1 Toni Horner RN RN rs5 Catarino Reagan MD MD ec2 Corrections: (The following items were deleted from the chart) 16:55 16:55 PMHx: Asthma; ko1 ko1 17:00 17:00 Influenza Screen (A \T\ B)+BA.LAB.BRZ ordered. EDMS EDMS 17:00 17:00 SARS-COV-2 Antigen Rapid+I.LAB.BRZ ordered. EDMS EDMS
[2024-05-14 18:22] VITALS: BP 129/95; TEMP 98.1; O2SAT 99
== END 2024-05-14 18:19 | disposition home or self-care (01) ==
LOC: ER 16:48
DX: B34.9 Viral infection, unspecified (principal); J45.909 Unspecified asthma, uncomplicated; Z11.52 Encounter for screening for COVID-19
CPT/HCPCS: 36415; 71045; 87804; 87811; 99284; J7613; J7644

== ENCOUNTER 2024-09-03 18:13 | Emergency (ER) | payer SELFPAY ==
[2024-09-03] MEDS ORDERED: ALBUTEROL 2.5 MG/3 ML NEB SOL ONE (19:33)
[2024-09-03] MEDS ORDERED: IPRATROPIUM BROM 0.5MG/2.5ML ONE (19:33)
[2024-09-03] MEDS ORDERED: predniSONE 20 MG TAB ONE (19:34)
[2024-09-03 20:48] LABS: Influenza A Ag Negative; Influenza B Ag Negative; SARS-CoV-2 Antigen Rapid Res Negative (Negative)
--- NOTE | 2024-09-03 21:03 | RAD REPORT ---
EXAM: Chest Pa And Lat (2 Views) HISTORY: 38 years Male COUGH COMPARISON: 05/14/2024 FINDINGS: LUNGS/PLEURA: The lungs are clear. No pleural effusions or pneumothorax. No pulmonary edema. CARDIAC/MEDIASTINUM: The cardiac silhouette is within normal limits. UPPER ABDOMEN: No significant abnormality. BONES: No acute abnormality. LINES/TUBES/OTHER: N/A IMPRESSION: No evidence of acute cardiopulmonary disease.
--- NOTE | 2024-09-03 21:10 | ER ---
Nurse's Notes [facility] Name: Holland Riley Age: 38 yrs Sex: Male : 1985 Arrival Date: 09/03/2024 Time: 18:13 Bed 16 Private MD: Diagnosis: Cough;Otitis media, unspecified, right ear Presentation: 09/03 18:33 Chief complaint: Patient states: GUNTER, sinus congestion, cough, SOB, fatigued for 3 days. ll1 Coronavirus screen: Client denies travel out of the [place] in the last 14 days. cough unrelated to allergies, fatigue, fever. Ebola Screen: Patient denies travel to an Ebola-affected area in the 21 days before illness onset. Initial Sepsis Screen: Does the patient meet any 2 criteria? No. Patient's initial sepsis screen is negative. Does the patient have a suspected source of infection? No. Patient's initial sepsis screen is negative. Risk Assessment: Do you want to hurt yourself or someone else? Patient reports no desire to harm self or others. Onset of symptoms was September 01, 2024. 18:33 Method Of Arrival: Ambulatory ll1 18:33 Acuity: MATEO 3 ll1 Triage Assessment: 18:34 General: Appears uncomfortable, Behavior is calm, cooperative, appropriate for age, ll1 Reports fatigue for. Pain: Complains of pain in head Quality of pain is described as aching, Pain began 2-3 days ago. EENT: Reports nasal congestion. Neuro: Reports headache weakness. Respiratory: Reports shortness of breath cough that is. 19:40 Headache History: Denies prior headaches. Pain: Also complains of. rg5 19:40 Pain: Pain currently is 4 out of 10 on a pain scale. rg5 Historical: - Allergies: 18:27 No Known Allergies; ll1 - PMHx: 18:27 Asthma; Bronchitis; ll1 - Immunization history:: Adult Immunizations up to date. - Infectious Disease History:: Denies. - Social history:: Smoking status: Patient denies any tobacco usage or history of. Smoking status: Patient reports the use of cigarette tobacco products, cigars. Screenin:45 [facility] ED Fall Risk Assessment (Adult) History of falling in the last 3 months, rg5 including since admission No falls in past 3 months (0 pts) Confusion or Disorientation No (0 pts) Intoxicated or Sedated No (0 pts) Impaired Gait No (0 pts) Mobility Assist Device Used No (0 pt) Altered Elimination No (0 pt) Score/Fall Risk Level 0 - 2 = Low Risk Oriented to surroundings, Maintained a safe environment, Hourly rounding (assess needs \T\ fall precautionary measures) done. Abuse screen: Denies threats or abuse. Nutritional screening: On. Tuberculosis screening: No symptoms or risk factors identified. Assessment: 19:45 General: Appears in no apparent distress. comfortable, Behavior is calm, cooperative, rg5 appropriate for age. 19:45 Pain: Denies pain. Neuro: Level of Consciousness is awake, alert, obeys commands, rg5 Oriented to person, place, time, situation. Cardiovascular: Denies chest pain, Patient's skin is warm and dry. Respiratory: Reports shortness of breath Airway is patent Trachea midline Respiratory effort is even, unlabored, Respiratory pattern is regular, symmetrical, Breath sounds with wheezes bilaterally. GI: Abdomen is round Abd is soft and non tender. : No signs and/or symptoms were reported regarding the genitourinary system. EENT: No deficits noted. Derm: Skin is intact, Skin is diaphoretic, Skin is normal. Musculoskeletal: Circulation, motion, and sensation intact. Range of motion: intact in all extremities. 20:35 Reassessment: Patient and/or family updated on plan of care and expected duration. Pain rg5 level reassessed. Patient is alert, oriented x 3, equal unlabored respirations, skin warm/dry/pink. Patient denies pain at this time. 21:12 Reassessment: Patient and/or family updated on plan of care and expected duration. Pain rg5 level reassessed. Patient is alert, oriented x 3, equal unlabored respirations, skin warm/dry/pink. Patient states symptoms have improved. Vital Signs: 18:33 BP 144 / 98; Pulse 77; Resp 17; Temp 98.6; Pulse Ox 98% ; Weight 99.79 kg; Height 5 ft. ll1 7 in. ; Pain 6/10; 19:45 BP 139 / 86; Pulse 78; Resp 18; Temp 98; Pulse Ox 97% on R/A; rg5 20:28 BP 130 / 81; Pulse 82; Resp 96; Pulse Ox 96% on R/A; Pain 0/10; rg5 18:33 Body Mass Index 34.46 (99.79 kg, 170.18 cm) ll1 18:33 Pain Scale: Adult ll1 20:28 Pain Scale: Adult rg5 ED Course: 18:17 Patient arrived in ED. 18:33 Rafael Spivey PA is PHCP. cp 18:33 Soha Longo is Attending Physician. cp 18:34 Triage completed. ll1 18:35 Arm band placed on. ll1 19:18 Victor M Morris, RN is Primary Nurse. rg5 19:45 Patient has correct armband on for positive identification. Door closed. Noise rg5 minimized. Warm blanket given. 19:45 No provider procedures requiring assistance completed. rg5 20:56 XRAY Chest Pa And Lat (2 Views) In Process Unspecified. EDMS 21:13 Patient did not have IV access during this emergency room visit. rg5 21:19 Provided Education on: post er care. rg5 Administered Medications: 19:48 Drug: Albuterol Inhalation 2.5 mg Inhalation once Route: Inhalation; rg5 19:48 Drug: Ipratropium Inhalation Aerosol 0.5 mg Inhalation once Route: Inhalation; rg5 19:48 Drug: predniSONE PO 60 mg PO once Route: PO; rg5 20:30 Follow up: Response: No adverse reaction rg5 Medication: 19:45 VIS not applicable for this client. rg5 Outcome: 21:09 Discharge ordered by MD. cp 21:19 Discharged to home ambulatory, rg5 21:19 Condition: stable 21:19 Discharge instructions given to patient, Instructed on discharge instructions, Demonstrated understanding of instructions, follow-up care, medications, Prescriptions given X 4, 21:19 Patient left the ED. rg5 Signatures: Dispatcher [employer] EDNV Rafael Spivey PA PA cp Lewis, Lynsay, RN RN ll1 Amna Marin Victor M Morris, RN RN rg5
--- NOTE | 2024-09-03 21:10 | EDPHYS ---
Physician Documentation [facility] Name: Holland Riley Age: 38 yrs Sex: Male : 1985 Arrival Date: 09/03/2024 Time: 18:13 Bed 16 Private MD: ED Physician Soha Longo HPI: 09/03 18:45 This 38 yrs old Male presents to ER via Ambulatory with complaints of Sinus cp Congestion, Headache, Shortness Of Breath. 18:45 The patient or guardian reports cough, that is intermittent. cp 18:45 Onset: The symptoms/episode began/occurred 3 day(s) ago. Associated signs and symptoms: cp Pertinent positives: rhinorrhea, sore throat, sinus congestion, Pertinent negatives: diarrhea, fever, vomiting. Historical: - Allergies: 18:27 No Known Allergies; ll1 - PMHx: 18:27 Asthma; Bronchitis; ll1 - Immunization history:: Adult Immunizations up to date. - Infectious Disease History:: Denies. - Social history:: Smoking status: Patient denies any tobacco usage or history of. Smoking status: Patient reports the use of cigarette tobacco products, cigars. ROS: 18:50 Constitutional: Negative for fever, poor PO intake, cp 18:50 Eyes: Negative for injury, pain, redness, and discharge, cp 18:50 ENT: Negative for drainage from ear(s), difficulty swallowing, difficulty handling secretions, 18:50 Respiratory: Positive for cough, shortness of breath, Negative for wheezing, 18:50 Abdomen/GI: Negative for abdominal pain, nausea, vomiting, and diarrhea, 18:50 All other systems are negative, Exam: 18:55 Constitutional: The patient appears in no acute distress, alert, awake, non-toxic, well cp developed, well nourished, 18:55 Head/Face: Normocephalic, atraumatic. cp 18:55 Eyes: Periorbital structures: appear normal, Conjunctiva: normal, no exudate, no cp injection, Sclera: no appreciated abnormality, Lids and lashes: appear normal, bilaterally, 18:55 ENT: External ear(s): are unremarkable, Ear canal(s): are normal, clear, TM's: bulging, is not appreciated, erythema, that is mild, on the right, Examination of the other ear shows no obvious abnormality, Nose: is normal, Mouth: Lips: moist, Oral mucosa: moist, Posterior pharynx: Airway: no evidence of obstruction, patent, Tonsils: no enlargement, no exudate, erythema, that is mild, exudate, is not appreciated, 18:55 Neck: ROM/movement: is normal, is supple, without pain, no range of motions limitations, no meningismus, no nuchal rigidity, Lymph nodes: no appreciated lymphadenopathy, 18:55 Chest/axilla: Inspection: normal, cp 18:55 Cardiovascular: Rate: normal, Rhythm: regular, 18:55 Respiratory: the patient does not display signs of respiratory distress, Respirations: normal, no use of accessory muscles, no retractions, labored breathing, is not present, Breath sounds: are clear throughout, no decreased breath sounds, no stridor, no wheezing, 18:55 Abdomen/GI: Exam negative for discomfort, distension, guarding, Inspection: abdomen appears normal, 18:55 Back: pain, is absent, ROM is normal, 18:55 Skin: no rash present. Vital Signs: 18:33 BP 144 / 98; Pulse 77; Resp 17; Temp 98.6; Pulse Ox 98% ; Weight 99.79 kg; Height 5 ft. ll1 7 in. ; Pain 6/10; 19:45 BP 139 / 86; Pulse 78; Resp 18; Temp 98; Pulse Ox 97% on R/A; rg5 20:28 BP 130 / 81; Pulse 82; Resp 96; Pulse Ox 96% on R/A; Pain 0/10; rg5 18:33 Body Mass Index 34.46 (99.79 kg, 170.18 cm) ll1 18:33 Pain Scale: Adult ll1 20:28 Pain Scale: Adult rg5 MDM: 21:09 Medical Screening Exam initiated cp 21:09 Data reviewed: vital signs, nurses notes, lab test result(s), radiologic studies, plain cp films, and as a result, I will discharge patient. 21:09 Differential Diagnosis: Bronchitis Influenza Otitis Media Pneumonia. I considered the cp following discharge prescriptions or medication management in the emergency department Medications were administered in the Emergency Department. See MAR. Counseling: I had a detailed discussion with the patient and/or guardian regarding the historical points, exam findings, and any diagnostic results supporting the discharge/admit diagnosis, lab results, radiology results, to return to the emergency department if symptoms worsen or persist or if there are any questions or concerns that arise at home. Response to treatment: the patient's symptoms have mildly improved after treatment, and as a result, I will discharge patient. 09/03 18:40 Order name: Group A Streptococcus Rapid; Complete Time: 21:07 cp 09/03 21:07 Interpretation: Reviewed. cp 09/03 18:40 Order name: COVID-19 Ag + Flu A+B Ag; Complete Time: 21:07 cp 09/03 21:07 Interpretation: Reviewed. cp 09/03 20:50 Order name: Throat Culture EDMS 09/03 20:46 Order name: XRAY Chest Pa And Lat (2 Views); Complete Time: 21:07 cp 09/03 21:08 Interpretation: Report reviewed. cp Administered Medications: 19:48 Drug: Albuterol Inhalation 2.5 mg Inhalation once Route: Inhalation; rg5 19:48 Drug: Ipratropium Inhalation Aerosol 0.5 mg Inhalation once Route: Inhalation; rg5 19:48 Drug: predniSONE PO 60 mg PO once Route: PO; rg5 20:30 Follow up: Response: No adverse reaction rg5 Disposition Summary: 09/03/24 21:09 Discharge Ordered Notes: Location: Home cp Problem: new cp Symptoms: have improved cp Condition: Stable cp Diagnosis - Cough cp - Otitis media, unspecified, right ear cp Followup: cp - With: Private Physician - When: 2 - 3 days - Reason: Worsening of condition Discharge Instructions: - Discharge Summary Sheet cp - Otitis Media, Adult cp - Cough, Adult cp Forms: - Medication Reconciliation Form cp - Antibiotic Education cp - Prescription Opioid Use cp - Patient Portal Instructions cp - Leadership Thank You Letter cp Prescriptions: - Bromfed DM 2-30-10 mg/5 mL Oral syrup - administer 10 milliliter ORAL route every 6-8 hours as needed for cold cp symptoms; 240 milliliter; Refills: 0, Product Selection Permitted - albuterol sulfate 90 mcg/actuation Inhalation HFA Aerosol Inhaler - inhale 1 inhalation INHALATION route every 4 to 6 hours as needed for cp bronchospasm; administer via ventilator; 1 unit; Refills: 0, Product Selection Permitted - Zithromax Z-Jack 250 mg Oral Tablet - take 1 tablet ORAL route as directed for 5 days Day 1 - take two (2) tablets cp one time. Day 2, 3, 4 , 5 take one (1) tablet once daily.; 6 tablet; Refills: 0, Product Selection Permitted - Medrol (Jack) 4 mg Oral Tablets, Dose Pack - take 1 tablet ORAL route as directed - follow package instructions; 1 packet; cp Refills: 0, Product Selection Permitted Signatures: Dispatcher [employer] EDMS Rafael Spivey PA PA cp Qamar Justice RN RN ll1 Victor M Morris RN RN rg5 Corrections: (The following items were deleted from the chart) 20:47 20:47 Chest Pa And Lat (2 Views)+RAD.RAD.BRZ ordered. EDNC EDMS 09/04 16:01 04 18:55 ENT: External ear(s): are unremarkable, Ear canal(s): are normal, clear, cp TM's: dullness, bilaterally, Nose: is normal, Mouth: Lips: moist, Oral mucosa: moist, Posterior pharynx: Airway: no evidence of obstruction, patent, Tonsils: no enlargement, no exudate, erythema, that is mild, exudate, is not appreciated, cp
[2024-09-03 21:24] VITALS: TEMP 98
[2024-09-03 21:25] VITALS: BP 130/81; O2SAT 96
== END 2024-09-03 21:19 | disposition home or self-care (01) ==
LOC: ER 18:13
DX: R05.9 Cough, unspecified (principal); H66.91 Otitis media, unspecified, right ear; Z11.52 Encounter for screening for COVID-19; Z72.0 Tobacco use
CPT/HCPCS: 36415; 71046; 87070; 87428; 99284; J7512; J7613; J7644